=== PATIENT | female | born 1965 | race Two or more races ===

== ENCOUNTER 2023-02-09 09:25 | Outpatient (OUT) | payer MEDICARE, MEDICAID, SELFPAY ==
--- NOTE | 2023-02-09 09:27 | VEIN_ITS ---
Patient: KATIANA CENTENO Exam Date: 02/09/2023 : 1965 Gender:F Ordering : DR JERICHO MAS M.D. Admission #: [id number] Family : Order #: [id number] CLICK HERE TO VIEW EXAM RADIOLOGY REPORT PROCEDURE: VC EXT VENOUS REFLUX YUE LMTD COMPARISON: None. INDICATIONS: I83.813 Painful varicose veins of bilat lower extremities TECHNIQUE: Duplex imaging of the lower extremity to assess the deep and superficial venous system for the presence of deep or superficial venous incompetence and to document the location and severity of disease. The study includes evaluation of the great saphenous vein (GSV), anterior accessory saphenous vein (AASV) and small saphenous vein (SSV). Patient scanned in reverse Trendelenburg and standing. FINDINGS: RIGHT LOWER EXTREMITY: Saphenofemoral Junction Reflux: Yes 8.8mm 2.5 sec GSV: Diam (mm) Reflux/ Time (sec) Proximal Thigh 7.3 Yes 1.9 Mid Thigh 4.2 Yes 0.7 Distal Thigh 7.7 Yes 1.2 Prox Calf 5.8 Yes 2.7 Mid Calf 3.4 Yes 0.5 Saphenopopliteal Junction Reflux: 2.7mm No SSV: Proximal Calf 2.8 No Mid Calf 2.3 No AASV: Proximal Thigh 4.5 No Mid Thigh 3.5 No Distal Thigh Thrombi: No acute or chronic thrombus visualized Compressibility: Normal Flow: Normal Preforator: Dist/med calf 2.9mm with 0s reflux. Tech Note: Incompetent SFJ and GSV. Patent varicose vein mid/med calf 8.5mm with 1.3s reflux. Patent varicose vein prox/med calf 9.1mm with 2.7s reflux. Patent varicose vein dist/med thigh off of GSV 7.2mm with 1.3s reflux. Patent varicose vein 13.5mm with 1.0s reflux. Patent varicose vein lateral knee 7.7mm with 0.9s reflux. LEFT LOWER EXTREMITY: Saphenofemoral Junction Reflux: Yes 9.7 mm 4.4 sec GSV: Diam (mm) Reflux/Time (sec) Proximal Thigh 7.4 Yes 1.6 Mid Thigh 6.1 Yes 1.5 Distal Thigh 3.8 Yes 2.3 Prox Calf 6.1 Yes 1.2 Mid Calf 4.4 Yes 0.6 Saphenopopliteal Junction Relux: 3.7 mm No SSV: Proximal Calf 4.2 Yes 0.8 Mid Calf 4.7 No AASV: Proximal Thigh 11.2 Yes 2.7 Mid Thigh 7.8 Yes 1.7 Distal Thigh Thrombi: No acute or chronic thrombus visualized Compressibility: Normal Flow: Normal Receptionist Secretary: Dist/med calf 2.9mm with 0s reflux. Tech Note: Incompetent SFJ, GSv, and AASV. Patent varicose vein prox/med calf 6.3mm with 0.8s reflux. Patent varicose vein dist/med thigh 4.2mm with 0s reflux. Patent varicose vein prox/ant off AASV. CONCLUSION: 1. Abnormally dilated and incompetent right great saphenous, left great saphenous, and left anterior accessory saphenous veins. 2. Numerous large and incompetent branch saphenous varicosities bilaterally. Dictated by: Graham Sampson M.D. on 02/09/2023 at 11:33 Approved by: Graham Sampson M.D. on 02/09/2023 at 11:42
--- NOTE | 2023-02-09 09:27 | VEIN_ITS ---
Patient: KATIANA CENTENO Exam Date: 02/09/2023 : 1965 Gender:F Ordering : DR JERICHO MAS M.D. Admission #: [id number] Family : Order #: [id number] CLICK HERE TO VIEW EXAM RADIOLOGY REPORT PROCEDURE: VC FACILITY EST COMPREHENSIVE VEIN CENTER - OFFICE VISIT INITIAL COMPARISON: None. PROGRESS NOTES: [age] year old female who presents with a 15 year history of painful, bulging, dilated veins, leg cramping, edema. The patient's right leg symptoms are worse than the left. There has been a progression of symptoms over time. This increases with prolonged standing which patient does for her job. The patient describes an improvement with rest, elevation, and [id number] medication. The patient denies any signs and symptoms to suggest arterial ischemia. The patient describes a family history varicose veins on maternal side. The patient has drinking and smoking history of no alcohol consumption or tobacco use. Patient has a past medical history significant for : None. The patient denies a history of deep venous thrombus or pulmonary embolus. See separate history and physical for medication list. No prior treatment for varicose or spider veins. No current use of compression stockings. After review of nurse notes, history and physical exam I discussed at length the pathophysiology of venous hypertension and possible treatments, therapies and strategies available. We discussed at length the importance of elevating the lower extremities above the level of the heart, increased physical activity and compression stocking use. Ultrasound venous reflux study performed today was discussed at length with the patient. The report demonstrates abnormally dilated and incompetent right great saphenous, left great saphenous, and left anterior accessory saphenous veins. Numerous large and incompetent branch saphenous varicosities bilaterally.. PHYSICAL EXAM: The right leg demonstrates numerous large varicosities, prominent reticular veins and spider veins, no ulceration, moderate edema, no skin discoloration. The left leg demonstrates numerous large varicosities, reticular and spider veins, no ulceration, moderate edema, no skin discoloration. Both thighs, legs and feet were symmetrically warm to the touch. Good posterior tibial and dorsalis pedis pulses were present bilaterally. VEIN/VC Facility EST Comprehensive IMPRESSION: 1. Bilateral lower extremity venous insufficiency 2. Bilateral lower extremity varicose veins 3. Bilateral lower extremity subcutaneous edema 4. No flow significant arterial disease 5. CEAP: C3, EC, , [place] PLAN: 1. Begin use of compression stockings with re-evaluation in 3 months. 2. Elevated legs and increased physical activity symptomatic relief 3. Future consideration should be given to endovenous laser ablation of left great saphenous, right great saphenous, and left anterior accessory saphenous veins. 4. Microfoam chemical ablation of bilateral large in incompetent branch saphenous varicosities. 5. Sclerotherapy of prominent reticular veins and scattered spider veins. Nurse notes, history and physical were reviewed and confirmed, see attached forms. The nurse was present throughout the physical exam and consultation Dictated by: Graham Sampson M.D. on 02/09/2023 at 11:42 Approved by: Graham Sampson M.D. on 02/09/2023 at 11:48
== END 2023-02-09 09:26 | disposition home or self-care (01) ==
LOC: VC 09:25
PROVIDERS: PCP Radiology Diagnostic Radiology; Visit Provider Radiology Diagnostic Radiology
DX: I83.813 Varicose veins of bilateral lower extremities with pain (principal)
CPT/HCPCS: 93970; G0463

== ENCOUNTER 2023-05-16 13:50 | Outpatient (OUT) | payer MEDICARE, SELFPAY ==
--- NOTE | 2023-05-16 13:55 | VEIN_ITS ---
Patient Name: KATIANA CENTENO MR#: [id number] : 1965 Exam Date: 05/16/2023 Ordering Doctor: DR FRANCISCO WHITAKER M.D. RADIOLOGY REPORT PROCEDURE: VC FACILITY EST LMTD VEIN CENTER - OFFICE VISIT FOLLOW UP COMPARISON: None. PROGRESS NOTES: The patient reports mild to moderate improvement in her symptoms after use of bilateral thigh-high 20-30 mm compression stockings. The patient however continues to complain significant discomfort even with the compression stockings with pain, itching and swelling Physical exam demonstrates moderate diffuse bilateral varicose reticular and spider veins along the thighs, lower legs, ankles and feet Intravenous laser ablation, micro foam chemical ablation and injection sclerotherapy were explained at length to the patient. Risks benefits and alternatives were discussed. The patient's questions were answered. VEIN/VC Facility EST LMTD IMPRESSION: 1. Only partial relief with the daily use of bilateral thigh-high 20-30 mm compression stockings as well as exercise. 2. The patient would like to proceed with treatment of her incompetent saphenous and varicose veins PLAN: Endovenous laser ablation and micro foam chemical ablation Nurse notes, history and physical were reviewed and confirmed, see attached forms. The nurse was present throughout the physical exam and consultation Dictated by: Francisco Whitaker MD on 05/16/2023 at 14:44 Approved by: Francisco Whitaker MD on 05/16/2023 at 14:49
== END 2023-05-16 13:51 | disposition home or self-care (01) ==
PROVIDERS: PCP Radiology Diagnostic Radiology; Visit Provider Radiology Diagnostic Radiology
DX: I83.813 Varicose veins of bilateral lower extremities with pain (principal)
CPT/HCPCS: G0463

== ENCOUNTER 2023-06-05 13:17 | Outpatient (OUT) | payer MEDICARE, MEDICAID, SELFPAY ==
--- NOTE | 2023-06-05 13:18 | VEIN_ITS ---
[address] [address] Patient Name: KATIANA MARISCAL MRN: [id number] date: 1965 Sex: F Assigned Patient Location: Current Patient Location: Accession/Order Number: [id number] Exam Date: 06/05/2023 13:19 Report Date: 06/05/2023 15:22 At the request of: JERICHO MAS Procedure: VC Endovenous Ablation 1VeinLT EXAMINATION: VC Endovenous Ablation 1Vein, left great saphenous vein HISTORY: Painful varicose veins bilaterally COMPARISON: No relevant comparison available. TECHNIQUE: The risks and benefits of the procedure had been previously discussed, and were rediscussed at length. Informed written consent was obtained. Mynor Stevenson assisted. Time out procedure was performed. The left lower extremity was prepared and draped in the usual sterile fashion to allow knee flexion in the sterile field. Duplex ultrasound probe was draped in a sterile cover, sterile transmission gel was used. Venous mapping was performed with the areas of dilation and large tributaries marked. The total length was 37 cm from the entry upper calf to 3 cm below the saphenofemoral junction. The diameter of the greater saphenous vein ranged from 5-8 mm. A 30 gauge needle and 1% buffered lidocaine was used to anesthetize the entry site. A 4 mm incision was made with a scalpel and the saphenous vein was entered percutaneously under direct ultrasound guidance with a micropuncture set, a single stick was successful in gaining access. A micro-guide wire was inserted and the needle removed. A micro-set including a dilator was inserted over the microwire and the needle and dilator were removed. A 0.018 guide wire was inserted through the micro-set and threaded through the saphenous vein to the saphenofemoral junction. The dilator was removed and an introducer sheath was inserted over the wire until the end of the sheath entered the saphenofemoral junction. The dilator and wire were removed and the 600 micron fiber was introduced and placed and positioned so that it extended beyond the sheath and was 3 cm peripheral to the saphenofemoral femoral junction. Final position of the fiber was determined by ultrasound guidance and duplex imaging. Tumescent anesthetic was delivered by ultrasound guidance. 300 cc of fluid was delivered along the entire course of the saphenous vein. The solution consisted of 1000 cc of normal saline with 40 mL of 1% lidocaine and 20 mL of sodium bicarbonate. A final positioning check was made. The energy source was turned on by means of the foot pedal and the fiber and sheath were withdrawn. The total number of Joules delivered was 1908. The laser was active for 239 seconds under continuous pulse, average laser use of 8 J. Laser start time 2:19 pm, 06/05/23 . Laser stop time 2:24 pm 06/05/23 . A duplex ultrasound revealed compressibility and flow at the saphenofemoral junction immediately after the procedure. Hemostasis at the access site was achieved. The skin incision of the saphenous vein was closed with a 4 x 4. A compression stocking was applied. Postop instructions were given. A follow up appointment was recommended and scheduled. The patient tolerated the procedure well and was discharged in good condition . VEIN/VC Endovenous Ablation 1VeinLT IMPRESSION: Technically successful endovenous laser ablation of the left great saphenous vein Electronically authenticated by: JERICHO MAS Date: 06/05/2023 15:22
--- OUTSIDE RECORDS SUMMARY | 2023-06-05 13:21 | XMS_ITS | CCD ---
Author Name Unknown Address [address] [place] [address] Organization [facility] Care Team Providers Care Research And Development Researcher Name Role Phone JERICHO QURESHI JR Attending Unavailable JERICHO QURESHI JR Consulting Unavailable JERICHO QURESHI JR Admitting Unavailable [facility] Primary Care Unava CHELSEA Vazquez Consulting Unavailable Jericho Qureshi Unavailable Nicholas Arteaga Unavailable MD Stephen Wilkins Attending Provider DO Lalita Drake Primary Care Provider Stephen Wilkins Admitting UnavailStephen Velez Attending Unavaillatosha e Lalita Drake Primary Care Unavailable Medications Current Medications Medication Drug Class(es) Dates Sig (Normalized) Sig (Original) Acetaminophen (1 source) Tylenol PRN Active dicyclomine hydrochloride 20 mg oral tablet (1 source) Anticholinergic Start: 07-20-2021 take 1 tablet by mouth every eight hours Dicyclomine HCl 20 MG 1 tablet Orally Three times a day for 30 day(s) Jul, Active Docusate (1 source) Colace Active meloxicam (1 source) Nonsteroidal Anti-inflammatory Drug Meloxicam Active omeprazole 40 mg delayed release oral capsule (2 sources) Proton Pump Inhibitor Start: 01-17-2023 take 1 capsule by mouth once daily Omeprazole 40 MG 1 capsule 30 minutes before morning meal Orally Once a day for 30 days Jan, Active take 1 capsule by mo [facility] every twenty-four hours Omeprazole 20 MG 1 capsule Orally Once a day Active Problems Active Problems Problem Classification Problem Date Documented Da te Episodic/Chronic Abdominal pain (3 sources) Abdominal pain; Translations: [Unspecified abdominal pain] Onset: 07-20-2021 Resolved: 07-20-2021 Episodic Diverticulosis and diverticulitis (1 source) Diverticulosis of large intestine without perforation or abscess without bleeding; Translations: [DVRTCLOS LG INT NO PERF/ABSC W/O BL] Onset: 06-04-2020 Chronic Esophageal disorders (6 sources) Dyskinesia of esophagus; Translations: [Gastro-esophageal reflux disease without esophagitis] Onset: 06-04-2020 Resolved: 07-20-2021 Chronic Mood disorders (1 source) Major depressive disorder, single episode, unspecified; Translations: [EDITA DEPRESS D/O SINGLE EPIS UNS] Onset: 06-04-2020 Chronic Nonspecific chest pain (2 sources) Chest pain; Translations: [Other chest pain] Episodic Other gastrointestinal disorders (5 sources) Dysphagia, unspecified; Translations: [DYSPHAGIA UNSPECIFIED] Onset: 06-03-2020 Episodic Other gastrointestinal disorders (2 sources) Constipation; Translations: [Constipation, unspecified] Episodic Past or Other Problems Problem Classification Problem Date Documented Da te Episodic/Chronic Gastrointestinal hemorrhage (1 source) Melena Onset: 07-20-2021 Resolved: 07-20-2021 Episodic Other aftercare (1 source) Other schedule 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 (current) drug therapy; Translations: [OTH GROUP HOME CURRENT DRUG THERAPY] Onset: 06-04-2020 Episodic Other screening for suspected conditions (not mental disorders or infectious disease) (1 source) Encounter for screening for malignant neoplasm of colon; Translations: [ENC SCREEN MALIG NEOPLASM COLON] Onset: 06-04-2020 Episodic Residual codes; unclassified (1 source) Family history of malignant neoplasm of digestive organs; Translations: [FAM HX MALIG NEOPLASM DIGESTIV ORGN] Onset: 06-04-2020 Episodic Vital Signs Date Time Vital Sign Value Performing Clinician Faci lity 02-21-2023 06:46-0400 Body height 156.21 cm DO Lalita Rumschlag Work Phone: [facility] 02-21-2023 06:46-0400 Body weight 74.84 kg DO Lalita Rumschlag Work Phone: [facility] 01-17-2023 11:00-0400 Body height 154.94 cm Nicholas Arteaga Other [employer] Other 01-17-2023 11:00-0400 Body mass index (BMI) [Ratio] 49.5 kg/m2 Nicholas Jasmyneclover Other [employer] Other 01-17-2023 11:00-0400 Body weight 118.84 kg Nicholas Arteaga Other [employer] Other 01-17-2023 11:00-0400 Diastolic blood pressure 81 mm[Hg] Nicholas Ditty Other [employer] Other 01-17-2023 11:00-0400 Systolic blood pressure 155 mm[Hg] Nicholas Jasmyneclover Other [employer] Other 07-20-2021 14:45-0500 Body weight 114.76 kg Jericho Qureshi Other [employer] Other Encounters Encounter Date Encounter Type Care Provider Facility Start: 02-21-2023 End: 02-21-2023 ambulatory Stephen Wilkins Facility:[facility] Start: 02-21-2023 End: 02-21-2023 ambulatory DO Lalita Rumschlag Work Phone: [facility] Work Phone: Start: 02-21-2023 End: 02-21-2023 Patient encounter procedure DO Lalita Rumschlag Work Phone: [facility] Work Phone: Start: 01-17-2023 End: 01-17-2023 ambulatory Nicholas Arteaga Other [employer] Other Start: 01-17-2023 [facility] visit new patient Nicholas Arteaga [facility] Start: 07-20-2021 End: 07-20-2021 ambulatory Jericho Qureshi Other [employer] Other Start: 07-20-2021 Office outpatient visit 25 minutes Jericho [facility] Start: 06-03-2020 End: 06-03-2020 ambulatory JERICHO QURESHI JR Facility:[facility] Procedures Date Procedure Procedure Detail Performing Clinician Start: 02-21-2023 Esophageal manometry DO Lalita Drake Work Phone: Plan of Treatment Date Care Activity Detail Author Start: 02-21-2023 [facility] Payers Date Payer Category Payer Medicare [id number] 2.1 [id number] 2023 Self-pay 1965 Unknown [id number] 1961 Unknown [id number] Medicaid [id number] 2. [id number] Unknown [id number] Social History Date Type Detail Facility Sex Assigned At [facility] [employer] Other Start: 1965 Sex Assigned At Female F [facility] Goals Date Patient Goal Desired Activity /State Evaluation note 01-17-2023 Note Date & Type Note Facility 01-17-2023 Evaluation note Encounter Date Diagnosis Assessment Notes Jan, GERD (gastroeso phageal reflux disease) (ICD-10 - K21.9) Patient denies any issues with Dysphagia at this time. [place] UGI with Esophagus did show some achalasia. Will start patient on Omeprazole 40mg once daily. Would like to proceed with an EMS to evaluate how hard the muscles are squeezing. Jan, Chest pain, non-cardia c (ICD-10 - R07.89) Patient describes a poking pain in her chest. [employer] Other Evaluation note 07-20-2021 Note Date & Type Note Facility 07-20-2021 Evaluation note Encounter Date Diagnosis Assessment Notes 08 Mar, 2022 GERD (gastroesopha geal reflux disease) (ICD-10 - K21.9) Jul, Abdominal pain (ICD-10 - R10.9) severe sharp pain imaging ordered and medication started Jul, Black stools (ICD-10 - K92.1) [employer] Other Clinical Note 06-03-2020 Note Date & Type Note Facility 06-03-2020 Note OPERATIVE NOTE OPERATION DATE: 06-03-20 ANESTHETIC: MAC, Propofol as per the anesthesia department. PREOPERATIVE DIAGNOSIS: 1. Dysphagia. 2. Screening with family history of colon cancer in the patient's brother. POSTOPERATIVE DIAGNOSIS: 1. Mild esophageal spasm, dilated to 20 mm with balloon. 2. Moderate sigmoid diverticulosis. PROCEDURE NAME: 1. EGD with balloon dilatation. 2. Colonoscopy to the terminal ileum. INDICATION: O2 oximetry. Hemodynamic monitoring performed pre, during and post procedures. The patient was identified, H AND P completed. The patient was given full explanation of the procedures as well as associated risks and written consent was obtained prior to the procedures. The patient expressed complete understanding of the procedures as well as alternatives to the procedures and anesthesia and agrees to proceed with the procedures as indicated. The patient was immediately reassessed prior to IV sedation. PROCEDURE: Following IV sedation, the patient was placed in the left lateral decubitus position. A bite block was inserted. The endoscope was passed through the mouth and down to the esophagus. The scope was passed into the stomach and down through the antrum to the pyloric channel, into the duodenal bulb and the second portion of the duodenum. There was no evidence of duodenitis. The scope was withdrawn back into the stomach, there was no evidence of gastritis. Retroflexion was performed which demonstrated no significant hiatal hernia. The scope was withdrawn into the esophagus, there was noted to be mild esophageal spasms, a 20 mm balloon catheter was placed and inflated to 20 mm and the distal, mid, and proximal esophagus were dilated. The scope was removed. Subsequently the bed was switched around, the scope was changed. A digital rectal exam was performed which did not demonstrate any masses. The videocolonoscope was subsequently inserted and passed proximally. Upon advancement, there was moderate sigmoid diverticulosis without evidence of diverticulitis. The colonoscope was advanced over to the right side, the ileocecal valve, cecal floor and appendiceal orifice were identified. The terminal ileum was cannulated and appeared normal. The colonoscope was slowly withdrawn through the ascending colon, hepatic flexure, transverse colon, splenic flexure, descending colon and into the sigmoid colon. There were no polyps identified. There were no areas of colitis. The colonoscope was retroflexed in the rectum, there was no significant hemorrhoids, the colonoscope was then straightened and removed. Following a period of recovery, the patient was seen, given full explanation of the procedures. The patient tolerated the procedures well and may be discharged when in satisfactory, stable and ambulatory condition. RECOMMENDATIONS: 1. Advance diet and observe. 2. Colonoscopy recommended in 5 years based on family history. [facility] Signed and Approved by: JERICHO QURESHI JR 06/10/2020 11:26:00 [facility] Evaluation note Note Date & Type Note Facility Evaluation note No assessment information availa [facility] Work Phone: History general Narrative - Reported Note Date & Type Note Facility History general Narrative - Reported Type Medical History GERD Medical History esophageal spasm Surgical History appendectomy Surgical History C section [employer] Other History general Narrative - Reported Note Date & Type Note Facility History general Narrative - Reported Type Medical History GERD Medical History esophageal spasm Surgical History appendectomy Surgical History C section Surgical History ablasion-righ and left knee Hospitalization History see above [employer] Other Summary Purpose Family History No Family History Records FoundNo Family History Records Found Advance Directives No Advanced Directives Records Found Advance Directive Response Recorded Date/ Time Advance Directives No February 20, 2023 4:45pm Chief Complaint and Reason for Visit Chief Complaint gerd, non-cardiac ch est pain Additional Source Comments INFORMATION SOURCE (unrecogn ized section and content) DATE CREATED AUTHOR 09/11/2020 [facility] DATE CREATED AUTHOR AUTHOR'S ORGANIZ ATION 03/19/2023 [facility] REASON FOR VISIT (unrecogniz ed section and content) PATIENT HERE AT THE REQUEST OF DR SOUZA FOR GERDPT IS HERE FOR BEGINNINGS OF BILL//PREVIOUS KIERA PATIENT Care Teams (unrecognized sec tion and content) Team Status: Active Member Role Status Dates Lalita Drake DO Primary Care Provider Active Team Status: Inactive Member Role Status Dates Stephen Wilkins MD Attending Provider Active Lalita Drake DO Primary Care Provider Active FOR RECORDS PERTAINING TO PATIENTS WHO ARE OR HAVE BEEN ENROLLED IN A CHEMICAL DEPENDENCY/SUBSTANCEABUSE PROGRAM, SOME INFORMATION MAY BE OMITTED. This clinical summary was aggregated from multiple sources. Caution should be exercised in using it in the provision of clinical care. This summary normalizes information from multiple sources, and as a consequence, information in this document may materially change the coding, format and clinical context of patient data. In addition, data may be omitted in some cases. CLINICAL DECISIONS SHOULD BE BASED ON THE PRIMARY CLINICAL RECORDS. [facility]. provides no warranty or guarantee of the accuracy or completeness of information in this document.
[2023-06-05] MEDS: LIDOCAINE HCL 1% 100 MG/10 ML MDV INJ (15:09)
[2023-06-05] MEDS: 0.9 % SODIUM CHLORIDE 500 ML, LIDOCAINE HCL 20 ML, SODIUM BICARBONATE 10 MEQ INJ (15:10)
== END 2023-06-05 13:18 | disposition home or self-care (01) ==
LOC: VC 13:17
PROVIDERS: PCP Radiology Diagnostic Radiology; Visit Provider Radiology Diagnostic Radiology
DX: I83.813 Varicose veins of bilateral lower extremities with pain (principal)
CPT/HCPCS: 36478

== ENCOUNTER 2023-06-12 12:23 | Outpatient (OUT) | payer MEDICARE, MEDICAID, SELFPAY ==
--- NOTE | 2023-06-12 12:25 | VEIN_ITS ---
Patient Name: KATIANA MARISCAL MR#: [id number] : 1965 Exam Date: 06/12/2023 Ordering Doctor: DR FRANCISCO WHITAKER M.D. RADIOLOGY REPORT PROCEDURE: VC EXT VENOUS LT LIMITED COMPARISON: None. INDICATIONS: Phlebitis of superficial vein of left lower extremity I80.02 TECHNIQUE: Lower extremity marcum scale and Duplex Doppler evaluation of the deep venous system from the inguinal ligament through the calf veins. FINDINGS: REGION: Left lower extremity. THROMBI: Negative for DVT. Heat induced thrombus in left GSV 2.2 cm from SFJ and extends to medial knee. COMPRESSIBILITY: Non-compressible segments corresponding to thrombus FLOW: Areas of no flow corresponding to thrombus CONCLUSION: Post ablation occlusion of the left great saphenous vein with heat induced thrombus 2.2 cm from the saphenofemoral junction Dictated by: Francisco Whitaker MD on 06/12/2023 at 12:51 Approved by: Francisco Whitaker MD on 06/12/2023 at 12:53
--- NOTE | 2023-06-12 12:25 | VEIN_ITS ---
Patient Name: KATIANA MARISCAL MR#: [id number] : 1965 Exam Date: 06/12/2023 Ordering Doctor: DR FRANCISCO WHITAKER M.D. RADIOLOGY REPORT PROCEDURE: [facility] - OFFICE VISIT FOLLOW UP [facility] PROGRESS NOTES: The patient reports no significant problems following intravenous laser ablation of left great saphenous vein. The patient does complain of some bruising. The patient has worn her compression stockings as directed. The patient has done some exercise. The patient did not require analgesics Physical exam demonstrates 3 areas of bruising in the medial left thigh the largest measuring 10 cm in diameter. This likely is related to tumescence injection. The left great saphenous vein cannot be palpated likely related to patient body habitus. No erythema or warmth to suggest cellulitis or thrombophlebitis. No active ulceration Review of the ultrasound performed the same day demonstrates occlusive thrombus extending throughout the treated left great saphenous vein with heat induced thrombus 2.2 cm from the saphenofemoral junction. No deep vein thrombus. The patient expressed a desire to proceed with treatment of incompetent right great saphenous vein with intravenous laser ablation. VEIN/[facility] EST TD IMPRESSION: 1. Successful ablation of the left great saphenous vein 2. Persistent incompetent right great saphenous vein. PLAN: Intravenous laser ablation right great saphenous vein Nurse notes, history and physical were reviewed and confirmed, see attached forms. The nurse was present throughout the physical exam and consultation Dictated by: Francisco Whitaker MD on 06/12/2023 at 12:57 Approved by: Francisco Whitaker MD on 06/12/2023 at 12:59
== END 2023-06-12 12:24 | disposition home or self-care (01) ==
LOC: VC 12:24
PROVIDERS: PCP Radiology Diagnostic Radiology; Visit Provider Radiology Diagnostic Radiology
DX: I80.02 Phlebitis and thrombophlebitis of superficial vessels of left lower extremity (principal)
CPT/HCPCS: 93971; G0463

== ENCOUNTER 2023-06-26 13:03 | Outpatient (OUT) | payer MEDICARE, SELFPAY ==
--- NOTE | 2023-06-26 13:06 | VEIN_ITS ---
[address] [address] Patient Name: KATIANA MARISCAL MRN: [id number] date: 1965 Sex: F Assigned Patient Location: Current Patient Location: Accession/Order Number: [id number] Exam Date: 06/26/2023 13:42 Report Date: 06/26/2023 14:16 At the request of: JERICHO MAS Procedure: VC Endovenous Ablation 1VeinRT EXAMINATION: VC Endovenous Ablation 1Vein right great saphenous vein HISTORY: Pain due to varicose veins of bilateral legs I83.813 COMPARISON: No relevant comparison available. TECHNIQUE: The risks and benefits of the procedure had been previously discussed, and were rediscussed at length. Informed written consent was obtained. Evelin Obrien and Mello Ko assisted. Time out procedure was performed. The right lower extremity was prepared and draped in the usual sterile fashion to allow knee flexion in the sterile field. Duplex ultrasound probe was draped in a sterile cover, sterile transmission gel was used. Venous mapping was performed with the areas of dilation and large tributaries marked. The total length was 30 cm from the entry lower knee to 3 cm below the saphenofemoral junction. The diameter of the greater saphenous vein ranged from 8-12 mm. A 30 gauge needle and 1% buffered lidocaine was used to anesthetize the entry site. A 4 mm incision was made with a scalpel and the saphenous vein was entered percutaneously under direct ultrasound guidance with a micropuncture set, a single stick was successful in gaining access. A micro-guide wire was inserted and the needle removed. A micro-set including a dilator was inserted over the microwire and the needle and dilator were removed. A 0.018 guide wire was inserted through the micro-set and threaded through the saphenous vein to the saphenofemoral junction. The dilator was removed and an introducer sheath was inserted over the wire until the end of the sheath entered the saphenofemoral junction. The dilator and wire were removed and the 600 micron fiber was introduced and placed and positioned so that it extended beyond the sheath and was 3 cm peripheral to the saphenofemoral femoral junction. Final position of the fiber was determined by ultrasound guidance and duplex imaging. Tumescent anesthetic was delivered by ultrasound guidance. 275 cc of fluid was delivered along the entire course of the saphenous vein. The solution consisted of 1000 cc of normal saline with 40 mL of 1% lidocaine and 20 mL of sodium bicarbonate. A final positioning check was made. The energy source was turned on by means of the foot pedal and the fiber and sheath were withdrawn. The total number of Joules delivered was 1423. The laser was active for 178 seconds under continuous pulse, average laser use of 8 J. Laser start time 14:07 06/26/23 . Laser stop time 2:11 06/26/23 . A duplex ultrasound revealed compressibility and flow at the saphenofemoral junction immediately after the procedure. Hemostasis at the access site was achieved. The skin incision of the saphenous vein was closed with a 4 x 4. A compression stocking was applied. Postop instructions were given. A follow up appointment was recommended and scheduled. The patient tolerated the procedure well and was discharged in good condition . VEIN/VC Endovenous Ablation 1VeinRT IMPRESSION: Technically successful endovenous laser ablation of the right great saphenous vein Electronically authenticated by: JERICHO MAS Date: 06/26/2023 14:16
[2023-06-26] MEDS: LIDOCAINE HCL 1% 100 MG/10 ML MDV INJ (13:09)
[2023-06-26] MEDS: 0.9 % SODIUM CHLORIDE 500 ML, LIDOCAINE HCL 20 ML, SODIUM BICARBONATE 10 MEQ INJ (13:10)
== END 2023-06-26 13:04 | disposition home or self-care (01) ==
LOC: VC 13:03
PROVIDERS: PCP Radiology Diagnostic Radiology; Visit Provider Radiology Diagnostic Radiology
DX: I83.813 Varicose veins of bilateral lower extremities with pain (principal)
CPT/HCPCS: 36478

== ENCOUNTER 2023-07-03 13:27 | Outpatient (OUT) | payer MEDICARE, SELFPAY ==
--- NOTE | 2023-07-03 13:29 | VEIN_ITS ---
Patient Name: KATIANA MARISCAL MR#: [id number] : 1965 Exam Date: 07/03/2023 Ordering Doctor: DR JERICHO MAS M.D. RADIOLOGY REPORT PROCEDURE: [facility] - OFFICE VISIT FOLLOW UP [facility] PROGRESS NOTES: The patient reports improvement in leg symptoms. There has been interval reduction in varicosities. The patient has followed our recommendations to walk 20-30 minutes once or twice per day since the procedure. Physical exam demonstrates decrease in varicosities of the leg. Persistent varicosities are identified along the legs bilaterally. Review of the ultrasound performed the same day demonstrates occlusive thrombus extending throughout the treated vein(s), see separate report, consistent with a successful ablation. No thrombus extending into or beyond the saphenofemoral junction. The patient expressed a desire to proceed with treatment of remaining incompetent varicosities. The patient was informed that treatment was a process and would require several procedures/sessions. VEIN/[facility] EST TD IMPRESSION: 1. Successful ablation of the right great saphenous vein(s). 2. Persistent dilated varicose veins and bilateral lower extremity symptoms. PLAN: Endovenous laser ablation of left anterior accessory saphenous vein. Nurse notes, history and physical were reviewed and confirmed, see attached forms. The nurse was present throughout the physical exam and consultation Dictated by: Graham Sampson M.D. on 07/03/2023 at 14:57 Approved by: Graham Sampson M.D. on 07/03/2023 at 14:59
--- NOTE | 2023-07-03 13:29 | VEIN_ITS ---
Patient Name: KATIANA MARISCAL MR#: [id number] : 1965 Exam Date: 07/03/2023 Ordering Doctor: DR JERICHO MAS M.D. RADIOLOGY REPORT PROCEDURE: VC EXT VENOUS RT LMTD COMPARISON: None. INDICATIONS: Phlebitis of superficial veins of right lower extremity I80.01 TECHNIQUE: Lower extremity marcum scale and Duplex Doppler evaluation of the deep venous system from the inguinal ligament through the calf veins. FINDINGS: REGION: Right lower extremity. THROMBI: Negative for DVT. Heat induced thrombus in right GSV 1.3 cm from SFJ and extends to medial knee. COMPRESSIBILITY: Non-compressible segments corresponding to thrombus FLOW: Areas of no flow corresponding to thrombus OTHER: CONCLUSION: 1. Successful post ablation occlusion of right great saphenous vein. Dictated by: Graham Sampson M.D. on 07/03/2023 at 14:53 Approved by: Graham Sampson M.D. on 07/03/2023 at 14:57
--- OUTSIDE RECORDS SUMMARY | 2023-07-03 13:47 | XMS_ITS | CCD ---
Author Name Unknown Address [address] [place] [address] Organization [facility] Care Team Providers Care Integration Technician Name Role Phone JERICHO QURESHI JR Attending Unavailable JERICHO QURESHI JR Consulting Unavailable JERICHO QURESHI JR Admitting Unavailable [facility] Primary Care Unava ilCHELSEA Monroe Consulting Unavailable Jericho Qureshi Unavailable Nicholas Arteaga Unavailable MD Stephen Wilkins Attending Provider DO Lalita Westbrook Primary Care Provider Stephen Wilkins Admitting UnavailStephen Velez Attending Unavailabl e Dariana Lalita Primary Care Unavailable Rumschbrian DARLING Lalita Salvatore Primary Care Provider DARIANA LALITA K Primary Care Unavailable TRINA DANIEL Attending Unavailable TRINA DANIEL Attending Unavailable TRINA DANIEL Referring Unavailable RUMSCHLAG, LALITA K Primary Care Unavailable RUMSCHLAG, LALITA K Referring Unavailable RUMSCHLAG, LALITA K Primary Care Unavailable RUMSCHLAG, LALITA K Referring Unavailable RUMSCHLAG, LALITA K Primary Care Unavailable Medications Current Medications Medication Drug Class(es) Dates Sig (Normalized) Sig (Original) acetaminophen 500 mg oral tablet (2 sources) take 1 tablet by mouth every six hours as needed for pain acetaminophen (TYLENOL) 500 mg tablet Take 1 tablet (500 mg total) by mouth every 6 (six) hours as needed for pain. 0 Active Tylenol PRN Acti ve 60 actuat budesonide 0.16 mg/actuat / formoterol fumarate 0.0045 mg/actuat metered dose inhaler (2 sources) Corticosteroid, beta2-Adrenergic Agonist Start: 09-20-2022 take 2 puff(s) by inhalation in the morning SYMBICORT 160-4.5 mcg/actuation inhaler Indications: Chronic dyspnea , SOB (shortness of breath) Inhale 2 puffs in the morning and 2 puffs before bedtime. 10.2 g 11 09/20/2022 Active Start: 09-05-2022 take 2 puff(s) by in halation in the morning budesonide-formoteroL (SYMBICORT) 160-4.5 mcg/actuation inhaler Indications: Chronic dyspnea , Atypical chest pain Inhale 2 puffs in the morning and 2 puffs before bedtime. 10.2 g 11 09/05/2022 Active celecoxib 100 mg oral capsule (1 source) Nonsteroidal Anti-inflammatory Drug Start: 06-06-2023 take 1 capsule by mouth in the morning, then take 1 capsule by mouth at bedtime celecoxib (CeleBREX) 100 mg capsule Take 1 capsule (100 mg total) by mouth in the morning and 1 capsule (100 mg total) before bedtime. 180 capsule 0 06/06/2023 Active diclofenac sodium 0.01 mg/mg topical gel (1 source) Nonsteroidal Anti-inflammatory Drug diclofenac sodium (VOLTAREN) 1 % gel Apply 2 g topically 4 (four) times a day as needed. 0 Active dicyclomine hydrochloride 20 mg oral tablet (1 source) Anticholinergic Start: 07-20-2021 take 1 tablet by mouth every eight hours Dicyclomine HCl 20 MG 1 tablet Orally Three times a day for 30 day(s) Jul, Active Docusate (1 source) Colace Active lisinopril 5 mg oral tablet (1 source) Angiotensin Converting Enzyme Inhibitor Start: 03-15-2023 take 0.5 tablet by mouth in the morning lisinopriL (PRINIVIL,ZESTRI L) 5 mg tablet Take 0.5 tablets (2.5 mg total) by mouth in the morning. 0 03/15/2023 Active omeprazole 40 mg delayed release oral capsule (3 sources) Proton Pump Inhibitor Start: 03-08-2023 take 1 capsule by mouth once daily before breakfast omeprazole (PriLOSEC) 40 mg capsule Take 1 capsule (40 mg total) by mouth every morning before breakfast. 0 03/08/2023 Active Start: 01-17-2023 take 1 capsule by [facility] once daily Omeprazole 40 MG 1 capsule 30 minutes before morning meal Orally Once a day for 30 days Jan, Active take 1 capsule by [facility] every twenty-four hours Omeprazole 20 MG 1 capsule Orally Once a day Active Completed/Discontinued Medications Medication Drug Class(es) Dates Sig (Normalized) Sig (Original) meloxicam 7.5 mg oral tablet (2 sources) Nonsteroidal Anti-inflammatory Drug Start: 03-22-2023 End: 06-06-2023 take 1 tablet by mouth in the morning meloxicam (MOBIC) 7.5 mg tablet Indications: Primary osteoarthritis of both knees Take 1 tablet (7.5 mg total) by mouth in the morning. 30 tablet 1 03/22/2023 06/06/2023 Discontinued (Side effects) Meloxicam Active Problems Active Problems Problem Classification Problem Date Documented Da te Episodic/Chronic Abdominal pain (3 sources) Abdominal pain; Translations: [Unspecified abdominal pain] Onset: 07-20-2021 Resolved: 07-20-2021 Episodic Acute bronchitis (1 source) Acute bronchitis, unspecified; Translations: [Acute bronchitis, unspecified] Onset: 06-19-2023 Episodic Diabetes mellitus without complication (1 source) Type 2 diabetes mellitus without complications; Translations: [Type 2 diabetes mellitus without complications] Onset: 06-23-2023 Chronic Diverticulosis and diverticulitis (1 source) Diverticulosis of [...] UNS] Onset: 06-04-2020 Chronic Nonspecific chest pain (3 sources) Chest pain; Translations: [Other chest pain] Episodic Osteoarthritis (3 sources) Primary gonarthrosis, bilateral; Translations: [Bilateral primary osteoarthritis of knee] Onset: 01-12-2022 04-27-2022 Chronic Other connective tissue disease (1 source) Pain in right arm; Translations: [Pain in right arm] Onset: 06-19-2023 Episodic Other connective tissue disease (1 source) Pain in left arm; Translations: [Pain in left arm] Onset: 06-19-2023 Episodic Other gastrointestinal disorders (5 sources) Dysphagia, unspecified; Translations: [DYSPHAGIA UNSPECIFIED] Onset: 06-03-2020 Episodic Other gastrointestinal disorders (2 sources) Constipation; Translations: [Constipation, unspecified] Episodic Other lower respiratory disease (1 source) Interstitial lung disease; Translations: [Interstitial pulmonary disease, unspecified] Onset: 07-14-2022 07-14-2022 Chronic Other lower respiratory disease (1 source) Dyspnea; Translations: [Shortness of breath] 10-06-2020 Episodic Other nutritional; endocrine; and metabolic disorders (1 source) Severe obesity; Translations: [Morbid (severe) obesity due to excess calories] Onset: 10-06-2020 07-14-2022 Chronic Other nutritional; endocrine; and metabolic disorders (1 source) Body mass index 40+ - severely obese; Translations: [Morbid (severe) obesity due to excess calories] Onset: 11-12-2020 12-03-2020 Chronic Other skin disorders (1 source) Skin problem Onset: 06-19-2023 Episodic Residual codes; unclassified (1 source) Obstructive sleep apnea syndrome; Translations: [Obstructive sleep apnea (adult) (pediatric)] Onset: 07-14-2022 07-14-2022 Chronic Unclassified (1 source) Arm Pain, Cough Onset: 06-19-2023 Past or Other Problems Problem Classification Problem Date Documented Da te Episodic/Chronic Gastrointestinal hemorrhage (1 source) Melena Onset: 07-20-2021 Resolved: 07-20-2021 Episodic Other aftercare (1 source) 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; Translations: [OTH PHILOSOPHY LECTURER CURRENT DRUG THERAPY] Onset: 06-04-2020 Episodic Other screening for suspected conditions (not mental disorders or infectious disease) (2 sources) Encounter for screening for malignant neoplasm of colon; Translations: [Cardiovascular stress test abnormal] Onset: 06-04-2020 11-12-2020 Episodic Residual codes; unclassified (1 source) Family history of malignant neoplasm of digestive organs; Translations: [FAM HX MALIG NEOPLASM DIGESTIV ORGN] Onset: 06-04-2020 Episodic Results Test Name Value Interpretation Reference Range Facil ity COMPREHENSIVE METABOLIC PANE Jose 06-24-2023 Albumin [Mass/Vol] 4.0 g/dL Normal 3.2-5.3 [facility] Comment on above: Performed By: #### C MP #### [facility] ([id number]) [address] [place] [address] ALP [Catalytic activity/Vol] 92 U/L Normal 39-130 [facility] Comment on above: Performed By: #### C MP #### [facility] ([id number]) [address], [address] [place] [address] ALT [Catalytic activity/Vol] 23 U/L Normal 0-31 [facility] Comment on above: Performed By: #### C MP #### [facility] ([id number]) [address], [address] [place] [address] Anion gap [Moles/Vol] 9 mmol/L Normal 5-15 [facility] Comment on above: Performed By: #### C MP #### [facility] ([id number]) [address], [address] [place] [address] AST [Catalytic activity/Vol] 24 U/L Normal 0-41 [facility] Comment on above: Performed By: #### C MP #### [facility] ([id number]) [address] [place] [address] Bilirubin [Mass/Vol] 1.0 mg/dL Normal 0.3-1.2 [facility] Comment on above: Performed By: #### C MP #### [facility] ([id number]) [address] [place] [address] Calcium [Mass/Vol] 9.0 mg/dL Normal 8.5-10.5 [facility] Comment on above: Performed By: #### C MP #### [facility] ([id number]) [address] [place] [address] Chloride [Moles/Vol] 103 mmol/L Normal 98-109 [facility] Comment on above: Performed By: #### C MP #### [facility] ([id number]) [address] [place] [address] CO2 [Moles/Vol] 27 mmol/L Normal 22-32 [facility] Comment on above: Performed By: #### C MP #### [facility] ([id number]) [address] [place] [address] Creatinine [Mass/Vol] 0.53 mg/dL Normal 0.40-1.00 [facility] Comment on above: Result Comment: METH OD TRACEABLE TO IDMS STANDARD Performed By: #### C MP #### [facility] ([id number]) [address] [place] [address] eGFR (CKD-EPI) NON-RACE DEPENDENT >90 Normal >59 [facility] Comment on above: Result Comment: Reported eGFR is based on the CKD-EPI 2020 equation that does not use a race coefficient. Performed By: #### C MP #### [facility] ([id number]) [address] [place] [address] Glucose [Mass/Vol] 170 mg/dL High 65-99 [facility] Comment on above: Performed By: #### C MP #### [facility] ([id number]) [address] [place] [address] Potassium [Moles/Vol] 4.2 mmol/L Normal 3.5-5.0 [facility] Comment on above: Performed By: #### C MP #### [facility] ([id number]) [address] [place] [address] Protein [Mass/Vol] 7.2 g/dL Normal 6.0-8.0 [facility] Comment on above: Performed By: #### C MP #### [facility] ([id number]) [address] [place] [address] Sodium [Moles/Vol] 139 mmol/L Normal 134-146 [facility] Comment on above: Performed By: #### C MP #### [facility] ([id number]) [address] [place] [address] Urea nitrogen [Mass/Vol] 15 mg/dL Normal 5-23 [facility] Comment on above: Performed By: #### C MP #### [facility] ([id number]) [address] [place] [address] HGB A1C (GLYCO-HGB)on 2023 Glucose [Mass/Vol] 186 mg/dL Normal [facility] Comment on above: Performed By: #### C MP #### [facility] ([id number]) [address] [place] [address] HbA1c (Bld) [Mass fraction] 8.1 % High 4.4-5.6 [facility] Comment on above: Result Comment: NOTE ADA Guidelines Result HgbA1c Normal : less than 5.7 % Prediabetes : 5.7 % to 6.4 % Diabetes : > 6.4 % Use with caution in patients with abnormal hemoglobin variants as the half-life of red blood cells and in vivo glycation rates are affected. Performed By: #### C MP #### [facility] ([id number]) [address] [place] [address] Vital Signs Date Time Vital Sign Value Performing Clinician Jacque alcala 02-21-2023 06:46-0400 Body height 156.21 cm DO [employer] Work Phone: [facility] 02-21-2023 06:46-0400 Body weight 74.84 kg DO Lalita Westbrook Work Phone: [facility] 01-17-2023 11:00-0400 Body height 154.94 cm Nicholas Jasmyneclover Other [employer] Other 01-17-2023 11:00-0400 Body mass index (BMI) [Ratio] 49.5 kg/m2 Nicholas Arteaga Other [employer] Other 01-17-2023 11:00-0400 Body weight 118.84 kg Nicholas Anneanisha Other [employer] Other 01-17-2023 11:00-0400 Diastolic blood pressure 81 mm[Hg] Nicholas Arteaga Other [employer] Other 01-17-2023 11:00-0400 Systolic blood pressure 155 mm[Hg] Nicholas Arteaga Other [employer] Other 07-20-2021 14:45-0500 Body weight 114.76 kg Jericho Qureshi Other [employer] Other Encounters Encounter Date Encounter Type Care Provider Facility Start: 06-24-2023 End: 06-25-2023 ambulatory LALITA WESTBROOK [facility] Start: 06-23-2023 End: 06-24-2023 ambulatory LALIAT WESTBROOK [facility] Start: 06-22-2023 End: 06-23-2023 ambulatory TRINA DANIEL [facility] Start: 06-19-2023 End: 06-19-2023 [facility]-06-[facility]23 Niya Gutierrez RN [facility] Start: 02-21-2023 End: 02-21-2023 ambulatory Stephen Wilkins Facility:[facility] Start: 02-21-2023 End: 02-21-2023 ambulatory DO Lalita Rumschlag Work Phone: [facility] Work Phone: Start: 02-21-2023 End: 02-21-2023 Patient encounter procedure DO Lalita Rumschlag Work Phone: [facility] Work Phone: Start: 01-17-2023 End: 01-17-2023 ambulatory Nicholas Arteaga Other [employer] Other Start: 01-17-2023 [facility] visit new patient Nicholas Arteaga [facility] Start: 07-20-2021 End: 07-20-2021 ambulatory Jericho Qureshi Other [employer] Other Start: 07-20-2021 Office outpatient visit 25 minutes Jericho Qureshi [facility] Start: 06-03-2020 End: 06-03-2020 ambulatory JERICHO QURESHI Facility:[facility]1 Procedures Date Procedure Procedure Detail Performing Clinician Start: 02-21-2023 Esophageal manometry DO Lalita Rumschlag Work Phone: Plan of Treatment Date Care Activity Detail Author Start: 03-22-2024 Tobacco Screening Tobacco Screening [facility] Start: 02-09-2024 Adult BMI Screening Adult BMI Screening [facility] Start: 09-20-2023 End: 09-20-2023 Patient encounter procedure 09/20/2023 2:00 PM EDT Office Visit [facility] [address] [place] [id number] Sia Grider, PASoledadC [address] [place] [address] [facility] Start: 02-21-2023 [facility] Start: 01-13-2023 COVID-19 Vaccine ( season) COVID-19 Vaccine ( season) [facility] Start: 01-13-2023 Influenza vaccination Influenza Vaccine [facility] Start: 2013 Administration of varicella zoster vaccine Zoster (Shingles) Vaccine (1 of 2) [facility] Start: 1984 Screening for malignant neoplasm of cervix Pap Smear [facility] Start: 1982 DTaP,Tdap and Td Vaccines (1 - Tdap) DTaP,Tdap and Td Vaccines (1 - Tdap) [facility] Start: 1981 Adult BMI Follow Up Plan Adult BMI Follow Up Plan [facility] Start: 1975 Depression Screening Depression Screening [facility] Immunizations Immunization Date Immunization Notes Care Provider Fa cility 07-22-2020 COVID-19 Vaccine, vector-nr, rS-Ad26, PF, 0.5mL Pauly Gutierrez RN [facility] 03-11-2020 influenza virus vaccine, unspecified formulation Pauly Gutierrez RN [facility] Payers Date Payer Category Payer Medicare [id number] 2023 Medicare [id number] 2023 Self-pay 2022 Medicare MEDICARE MEDICAR E PART A & B [id number] 2022-Present [phone] [address] [place] [address] [id number] 1965 Unknown [id number] 1965 Unknown [id number] 1963 Unknown [id number] 1963 Unknown [id number] 1963 Unknown [id number] 1959 Unknown [id number] Medicaid [id number] Unknown [id number] Social History Date Type Detail Facility Start: 05-29-2020 End: 03-22-2023 Sex Assigned At [facility] Other Start: 1965 Sex Assigned At Female F [facility] Start: 03-30-2022 [facility] Start: 03-30-2022 Tobacco use and exposure Smokeless tobacco non-user [facility] Start: 03-22-2023 Alcohol intake Current drinke r of alcohol (finding) [facility] Start: 05-29-2020 End: 03-22-2023 History of Social function [facility] Childcare Unknown [facility] Start: 03-01-2017 Alcohol Comment occasional Eating [facility] Start: 1965 Sex Assigned At Not on file P [facility] Goals Date Patient Goal Desired Activity /State Note 06-06-2023 Telephone Encounter - Pauly Gutierrez RN - 06/06/2023 11:08 AM EST Note Date & Type Note Facility 06-06-2023 Miscellaneous Notes Formattin g of this note might be different from the original. Last OV: 03/22/2023 Next OV: 09/20/2023 OARRS appropriate: yes Last UDS: n/a [facility]: [facility] Patient called office today to request refill for Celebrex 100 mg. She requests 90-day fill. She also asks that Sia be informed of the following: Patient explained that she had been taking Meloxicam but was experiencing arm and leg pain. Per patient Sia discontinued the Meloxicam and prescribed Celebrex 100 mg. Patient reports that she was tolerating Celebrex well but went back to taking Meloxicam. Once back on Meloxicam her arm was again very painful. She states she stopped taking the Meloxicam 04/01/2023 and then restarted Celebrex 04/08/2023. Patient states prescription is for Celebrex 100 mg BID however she has only been taking it once daily. She states that the daily does has been effective. documented in this encounter [facility] [facility] Telephone encounter Note 06-06-2023 Telephone Encounter - Pauly Gutierrez RN - 06/06/2023 11:08 AM EST Note Date & Type Note Facility 06-06-2023 Telephone encounter Note Last OV: 03/22/2023 Next OV: 09/20/2023 OARRS appropriate: yes Last UDS: n/a Pharmacy: [facility] Patient called office today to request refill for Celebrex 100 mg. She requests 90-day fill. She also asks that Sia be informed of the following: Patient explained that she had been taking Meloxicam but was experiencing arm and leg pain. Per patient Sia discontinued the Meloxicam and prescribed Celebrex 100 mg. Patient reports that she was tolerating Celebrex well but went back to taking Meloxicam. Once back on Meloxicam her arm was again very painful. She states she stopped taking the Meloxicam 04/01/2023 and then restarted Celebrex 04/08/2023. Patient states prescription is for Celebrex 100 mg BID however she has only been taking it once daily. She states that the daily does has been effective. [facility] Evaluation note 01-17-2023 Note Date & Type [...] describes a poking pain in her chest. [employer] Other Evaluation note 07-20-2021 Note Date & Type Note Facility 07-20-2021 Evaluation note Encounter Date Diagnosis Assessment Notes Jul, GERD (gastroesopha geal reflux disease) (ICD-10 - K21.9) Jul, Abdominal pain (ICD-10 - R10.9) severe sharp pain imaging ordered and medication started Jul, Black stools (ICD-10 - K92.1) [employer] Other Clinical Note 06-03-2020 Note Date & [...] in 5 years based on family history. [facility] Signed and Approved by: JERICHO QURESHI JR 06/10/2020 11:26:00 [facility] Evaluation note Note Date & Type Note Facility Evaluation note No assessment information [facility] Work Phone: History general Narrative - Reported Note Date & Type Note Facility History general Narrative - Reported Type Medical History GERD Medical History esophageal spasm Surgical History appendectomy Surgical History C section [employer] Other History general Narrative - Reported Note Date & Type Note Facility History general Narrative - Reported Type Medical History GERD Medical History esophageal spasm Surgical History appendectomy Surgical History C section Surgical History ablasion-righ and left knee Hospitalization History see above [employer] Other Instructions Note Date & Type Note Facility Instructions Not on filedocumented in this en counter [facility] Summary Purpose Family History No Family History Records FoundNo Family History Records FoundNo Family History Records Found Advance Directives No Advanced Directives Records Found Advance Directive Response Recorded Date/ Time Advance Directives No February 20, 2023 4:45pm Chief Complaint and Reason for Visit Chief Complaint gerd, non-cardiac ch est pain Additional Source Comments INFORMATION SOURCE (unrecogn ized section and content) DATE CREATED AUTHOR 09/11/2020 [facility] DATE CREATED AUTHOR AUTHOR'S ORGANIZ ATION 03/19/2023 [facility] DATE CREATED AUTHOR AUTHOR'S ORGANIZ ATION 06/26/2023 [facility] REASON FOR VISIT (unrecogniz ed section and content) Reason Onset Date Comments Med Refill 06/06/2023 Care Teams (unrecognized sec tion and content) Team Status: Active Member Role Status Dates Lalita Westbrook DO Primary Care Provider Active Team Status: Inactive Member Role Status Dates Stephen Wilkins MD Attending Provider Active Lalita Westbrook DO Primary Care Provider Active Integration Technician Relationship Specialty Start Date End Date Lalita Westbrook DO [address] [place] [address] PCP - General Family Medicine 11/26/19 FOR RECORDS PERTAINING TO PATIENTS WHO ARE [...] BE BASED ON THE PRIMARY CLINICAL RECORDS. [employer] provides no warranty or guarantee of the accuracy or completeness of information in this document.
== END 2023-07-03 13:28 | disposition home or self-care (01) ==
LOC: VC 13:27
PROVIDERS: PCP Radiology Diagnostic Radiology; Visit Provider Radiology Diagnostic Radiology
DX: I80.01 Phlebitis and thrombophlebitis of superficial vessels of right lower extremity (principal)
CPT/HCPCS: 93971; G0463

== ENCOUNTER 2023-07-11 13:22 | Outpatient (OUT) | payer MEDICARE, SELFPAY ==
--- NOTE | 2023-07-11 13:25 | VEIN_ITS ---
[address] [address] Patient Name: KATIANA MARISCAL MRN: [id number] date: 1965 Sex: F Assigned Patient Location: Current Patient Location: Accession/Order Number: [id number] Exam Date: 07/11/2023 13:29 Report Date: 07/11/2023 14:13 At the request of: JERICHO MAS Procedure: VC Endovenous Ablation 1VeinLT EXAMINATION: VC Endovenous Ablation 1Vein left anterior accessory saphenous vein HISTORY: Pain due to varicose veins of bilateral legs I83.813 COMPARISON: No relevant comparison available. TECHNIQUE: The risks and benefits of the procedure had been previously discussed, and were rediscussed at length. Informed written consent was obtained. Marianna Cortez and Mello Ko assisted. Time out procedure was performed. The left lower extremity was prepared and draped in the usual sterile fashion to allow knee flexion in the sterile field. Duplex ultrasound probe was draped in a sterile cover, sterile transmission gel was used. Venous mapping was performed with the areas of dilation and large tributaries marked. The total length was 14 cm from the entry mid thigh to 3 cm below the saphenofemoral junction. The diameter of the anterior accessory saphenous vein ranged from 6-11 mm. A 30 gauge needle and 1% buffered lidocaine was used to anesthetize the entry site. A 4 mm incision was made with a scalpel and the saphenous vein was entered percutaneously under direct ultrasound guidance with a micropuncture set, a single stick was successful in gaining access. A micro-guide wire was inserted and the needle removed. A micro-set including a dilator was inserted over the microwire and the needle and dilator were removed. A 0.018 guide wire was inserted through the micro-set and threaded through the saphenous vein to the saphenofemoral junction. The dilator was removed and an introducer sheath was inserted over the wire until the end of the sheath entered the saphenofemoral junction. The dilator and wire were removed and the 600 micron fiber was introduced and placed and positioned so that it extended beyond the sheath and was 3 cm peripheral to the saphenofemoral femoral junction. Final position of the fiber was determined by ultrasound guidance and duplex imaging. Tumescent anesthetic was delivered by ultrasound guidance. 75 cc of fluid was delivered along the entire course of the saphenous vein. The solution consisted of 1000 cc of normal saline with 40 mL of 1% lidocaine and 20 mL of sodium bicarbonate. A final positioning check was made. The energy source was turned on by means of the foot pedal and the fiber and sheath were withdrawn. The total number of Joules delivered was 741. The laser was active for 93seconds under continuous pulse, average laser use of 8 J. Laser start time 2:03 PM 07/11/2023 . Laser stop time 2:05 PM the 07/11/2023 . A duplex ultrasound revealed compressibility and flow at the saphenofemoral junction immediately after the procedure. Hemostasis at the access site was achieved. The skin incision of the saphenous vein was closed with a 4 x 4. A compression stocking was applied. Postop instructions were given. A follow up appointment was recommended and scheduled. The patient tolerated the procedure well and was discharged in good condition . VEIN/VC Endovenous Ablation 1VeinLT IMPRESSION: Technically successful endovenous laser ablation of the left anterior accessory saphenous vein Electronically authenticated by: JERICHO MAS Date: 07/11/2023 14:13
[2023-07-11] MEDS: LIDOCAINE HCL 1% 100 MG/10 ML MDV INJ (13:48)
[2023-07-11] MEDS: 0.9 % SODIUM CHLORIDE 500 ML, LIDOCAINE HCL 20 ML, SODIUM BICARBONATE 10 MEQ INJ (13:51)
== END 2023-07-11 13:23 | disposition home or self-care (01) ==
LOC: VC 13:22
PROVIDERS: PCP Radiology Diagnostic Radiology; Visit Provider Radiology Diagnostic Radiology
DX: I83.813 Varicose veins of bilateral lower extremities with pain (principal)
CPT/HCPCS: 36478

== ENCOUNTER 2023-07-17 07:58 | Outpatient (OUT) | payer MEDICARE, SELFPAY ==
--- NOTE | 2023-07-17 08:00 | VEIN_ITS ---
Patient Name: KATIANA MARISCAL MR#: [id number] : 1965 Exam Date: 07/17/2023 Ordering Doctor: DR FRANCISCO WHITAKER M.D. RADIOLOGY REPORT PROCEDURE: VC EXT VENOUS LT LIMITED COMPARISON: VC EXT VENOUS LT LIMITED, 06/12/2023. INDICATIONS: I80.02 Phlebitis of superficial veins of left lower extremity TECHNIQUE: Lower extremity marcum scale and Duplex Doppler evaluation of the deep venous system from the inguinal ligament through the calf veins. FINDINGS: REGION: Left lower extremity. THROMBI: Negative for DVT. Heat induced thrombus in left AASV 1.5 cm from SFJ and extends to mid thigh. COMPRESSIBILITY: Non-compressible segments corresponding to thrombus FLOW: Areas of no flow corresponding to thrombus CONCLUSION: Post ablation occlusion of the left anterior accessory saphenous vein with heat induced thrombus 1.5 cm from the saphenofemoral junction Dictated by: Francisco Whitaker MD on 07/17/2023 at 08:27 Approved by: Francisco Whitaker MD on 07/17/2023 at 08:28
--- NOTE | 2023-07-17 08:00 | VEIN_ITS ---
Patient Name: KATIANA MARISCAL MR#: [id number] : 1965 Exam Date: 07/17/2023 Ordering Doctor: DR FRANCISCO WHITAKER M.D. RADIOLOGY REPORT PROCEDURE: FACILITY EST LMTD VEIN CENTER - OFFICE VISIT FOLLOW UP COMPARISON: [facility] EST LMTD, 07/03/2023. [facility] EST LMTD, 06/12/2023. PROGRESS NOTES: The patient reports no significant problems following intravenous laser ablation of the left major accessory saphenous vein. The patient did not require oral analgesics. The patient has worn her compression stocking. The patient does report pain in the right popliteal fossa. Physical exam demonstrates the incision on the left anterior thigh to be sealed. Small area of bruising measuring 3 cm in diameter. Left anterior accessory saphenous vein cannot be palpated likely related to body habitus Review of the ultrasound performed the same day demonstrates occlusive thrombus extending throughout the treated left anterior accessory saphenous vein with heat induced thrombus 1.5 cm in the saphenofemoral junction. Multiple varicosities in the right popliteal fossa corresponding to the patient's pain likely related to rubbing from the compression stocking with several pre hemorrhagic veins observed. The patient expressed a desire to proceed with treatment of incompetent varicose veins with micro foam chemical ablation. We will treat veins on the right leg 1st as this is causing her the most problem. VEIN/[facility] EST LMTD IMPRESSION: 1. Successful ablation of the left anterior accessory saphenous vein 2. Persistent bilateral incompetent varicose veins PLAN: Micro foam chemical ablation right leg incompetent varicose vein Nurse notes, history and physical were reviewed and confirmed, see attached forms. The nurse was present throughout the physical exam and consultation Dictated by: Francisco Whitaker MD on 07/17/2023 at 08:35 Approved by: Francisco Whitaker MD on 07/17/2023 at 08:36
--- OUTSIDE RECORDS SUMMARY | 2023-07-17 08:00 | XMS_ITS | CCD ---
Author Name Unknown Address [address] [place] [address] Organization [facility] Care Team Providers Care Corporate Technical Recruiter Name Role Phone JERICHO QURESHI JR Attending Unavailable JERICHO QURESHI JR Consulting Unavailable JERICHO QURESHI JR Admitting Unavailable [facility] Primary Care Unava ilCHELSEA Monroe Consulting Unavailable Jericho Qureshi Unavailable Nicholas Arteaga Unavailable MD Stephen Wilkins Attending Provider [phone] DO Lalita Westbrook Primary Care Provider Stephen Wilkins Admitting UnavailStephen Velez Attending Unavailabl e Dariana Lalita Primary Care Unavailable Rumschbrian DARLING Lalita Salvatore Primary Care Provider DARIANA LALITA K Primary Care Unavailable TRIAN DANIEL Attending Unavailable TRINA DANIEL Attending Unavailable [...] Active Start: 01-17-2023 take 1 capsule by [facility] once daily Omeprazole 40 MG 1 capsule 30 minutes before morning meal Orally Once a day for 30 days Jan, Active take 1 capsule by [facility] every twenty-four hours Omeprazole 20 MG 1 [...] 07-20-2021 Episodic Other aftercare (1 source) Other [facility] (current) drug therapy; Translations: [[facility] CURRENT DRUG THERAPY] Onset: 06-04-2020 Episodic Other [...] 06-24-2023 Albumin [Mass/Vol] 4.0 g/dL Normal 3.2-5.3 [facility] Comment on above: Performed By: #### C MP #### [facility] ([id number]) [address], [address] [place] [address] ALP [Catalytic activity/Vol] 92 U/L Normal 39-130 [facility] Comment on above: Performed By: #### C MP #### [facility] ([id number]) [address], [address] [place] [address] ALT [Catalytic activity/Vol] 23 U/L Normal 0-31 [facility] Comment on above: Performed By: #### C MP #### [facility] ([id number]) [address], [address] [place] [address] Anion gap [Moles/Vol] 9 mmol/L Normal 5-15 [facility] Comment on above: Performed By: #### C MP #### [facility] ([id number]) [address], [address] [place] [address] AST [Catalytic activity/Vol] 24 U/L Normal 0-41 [facility] Comment on above: Performed By: #### C MP #### [facility] ([id number]) [address], [address] [place] [address] Bilirubin [Mass/Vol] 1.0 mg/dL Normal 0.3-1.2 [facility] Comment on above: Performed By: #### C MP #### [facility] ([id number]) [address], [address] [place] [address] Calcium [Mass/Vol] 9.0 mg/dL Normal 8.5-10.5 [facility] Comment on above: Performed By: #### C MP #### [facility] ([id number]) [address], [address] [place] [address] Chloride [Moles/Vol] 103 mmol/L Normal 98-109 [facility] Comment on above: Performed By: #### C MP #### [facility] ([id number]) [address] [place] [address] CO2 [Moles/Vol] 27 mmol/L Normal 22-32 [facility] Comment on above: Performed By: #### C MP #### [facility] ([id number]) [address] [place] [address] Creatinine [Mass/Vol] 0.53 mg/dL Normal 0.40-1.00 [facility] Comment on above: Result Comment: METH OD TRACEABLE TO IDMS STANDARD Performed By: #### C MP #### [facility] ([id number]) [address] [place] [address] eGFR (CKD-EPI) NON-RACE DEPENDENT >90 Normal >59 [facility] Comment on above: Result Comment: Reported eGFR is based on the CKD-EPI 2020 equation that does not use a race coefficient. Performed By: #### C MP #### [facility] ([id number]) [address], [address] [place] [address] Glucose [Mass/Vol] 170 mg/dL High 65-99 [facility] Comment on above: Performed By: #### C MP #### [facility] ([id number]) [address] [place] [address] Potassium [Moles/Vol] 4.2 mmol/L Normal 3.5-5.0 [facility] Comment on above: Performed By: #### C MP #### [facility] ([id number]) [address] [place] [address] Protein [Mass/Vol] 7.2 g/dL Normal 6.0-8.0 [facility] Comment on above: Performed By: #### C MP #### [facility] ([id number]) [address], [address] [place] [address] Sodium [Moles/Vol] 139 mmol/L Normal 134-146 [facility] Comment on above: Performed By: #### C MP #### [facility] ([id number]) [address], [address] [place] [address] Urea nitrogen [Mass/Vol] 15 mg/dL Normal 5-23 [facility] Comment on above: Performed By: #### C MP #### [facility] ([id number]) [address] [place] [address] HGB A1C (GLYCO-HGB)on 2023 Glucose [Mass/Vol] 186 mg/dL Normal [facility] Comment on above: Performed By: #### C MP #### [facility] ([id number]) [address] [place] [address] HbA1c (Bld) [Mass fraction] 8.1 % High 4.4-5.6 [facility] Comment on above: Result Comment: NOTE ADA Guidelines Result HgbA1c Normal : less than 5.7 % Prediabetes : 5.7 % to 6.4 % Diabetes : > 6.4 % Use with caution in patients with abnormal hemoglobin variants as the half-life of red blood cells and in vivo glycation rates are affected. Performed By: #### C MP #### [facility] ([id number]) [address] [place] [address] Vital Signs Date Time Vital Sign Value Performing Clinician Jacque alcala 02-21-2023 06:46-0400 Body height 156.21 cm DO Estech Work Phone: [facility] 02-21-2023 06:46-0400 Body weight 74.84 kg DO Lalita Westbrook Work Phone: [facility] 01-17-2023 11:00-0400 Body height 154.94 cm Nicholas Jasmyneclover Other [facility] Other 01-17-2023 11:00-0400 Body mass index (BMI) [Ratio] 49.5 kg/m2 Nicholas Arteaga Other [facility] Other 01-17-2023 11:00-0400 Body weight 118.84 kg Nicholas Anneanisha Other [facility] Other 01-17-2023 11:00-0400 Diastolic blood pressure 81 mm[Hg] Nicholas Arteaga Other [facility] Other 01-17-2023 11:00-0400 Systolic blood pressure 155 mm[Hg] Nicholas Arteaga Other [facility] Other 07-20-2021 14:45-0500 Body weight 114.76 kg Jericho Qureshi Other [facility] Other Encounters Encounter Date Encounter Type Care Provider Facility Start: 06-24-2023 End: 06-25-2023 ambulatory LALITA WESTBROOK [facility] Start: 06-23-2023 End: 06-24-2023 ambulatory LALITA WESTBROOK [facility] Start: 06-22-2023 End: 06-23-2023 ambulatory TRINA DANIEL [facility] Start: 06-19-2023 End: 06-19-2023 [facility]: 06-06-2023 Niya Gutierrez RN [facility] Start: 02-21-2023 End: 02-21-2023 ambulatory Stephen Wilkins Facility:[facility] Start: 02-21-2023 End: 02-21-2023 ambulatory DO Lalita Rumschlag Work Phone: [facility] Work Phone: Start: 02-21-2023 End: 02-21-2023 Patient encounter procedure DO Lalita Rumschlag Work Phone: [facility] Work Phone: Start: 01-17-2023 End: 01-17-2023 ambulatory Nicholas Arteaga Other [facility] Other Start: 01-17-2023 [facility] visit new patient Nicholas Arteaga [facility] Start: 07-20-2021 End: 07-20-2021 ambulatory Jericho Qureshi Other [facility] Other Start: 07-20-2021 Office outpatient visit 25 minutes Jericho Qureshi [facility] Start: 06-03-2020 End: 06-03-2020 ambulatory JERICHO QURESHI Facility:[facility]1 Procedures Date Procedure Procedure Detail Performing Clinician Start: 02-21-2023 Esophageal manometry DO Lalita Rumschlag Work Phone: Plan of Treatment Date Care Activity Detail Author Start: 03-22-2024 Tobacco Screening Tobacco Screening [facility] Start: 02-09-2024 Adult BMI Screening Adult BMI Screening [facility] Start: 09-20-2023 End: 09-20-2023 Patient encounter procedure 09/20/2023 2:00 PM EDT Office Visit [facility] [address] [place] [id number] Sia Grider, PASoledadC [address] [place] [address] [facility] Start: 02-21-2023 [facility] Start: 01-13-2023 COVID-19 Vaccine ( season) COVID-19 Vaccine ( season) [facility] Start: 01-13-2023 Influenza vaccination Influenza Vaccine [facility] Start: 2013 Administration of varicella zoster vaccine Zoster (Shingles) Vaccine (1 of 2) [facility] Start: 1984 Screening for malignant neoplasm of cervix Pap Smear [facility] Start: 1982 DTaP,Tdap and Td Vaccines (1 - Tdap) DTaP,Tdap and Td Vaccines (1 - Tdap) [facility] Start: 1981 Adult BMI Follow Up Plan Adult BMI Follow Up Plan [facility] Start: 1975 Depression Screening Depression Screening [facility] Immunizations Immunization Date Immunization Notes Care Provider Fa cility 07-22-2020 COVID-19 Vaccine, vector-nr, rS-Ad26, PF, 0.5mL Pauly Gutierrez RN [facility] 03-11-2020 influenza virus vaccine, unspecified formulation Pauly Gutierrez RN [facility] Payers Date Payer Category Payer Medicare [id number] 2023 Medicare [id number] 2023 Self-pay 2022 Medicare MEDICARE MEDICAR E PART A & B [id number] 2022-Present [phone] [address] [place] [address] [id number] 1965 Unknown [id number] 1965 Unknown [id number] 1965 Unknown [id number] 1965 Unknown [id number] 1965 Unknown [id number] 1959 Unknown [id number] Medicaid [id number] Unknown [id number] Social History Date Type Detail Facility Start: 05-29-2020 End: 03-22-[address] [facility] Other Start: 1965 Sex Assigned At Female F [facility] Start: 03-30-2022 [facility] Start: 03-30-2022 Tobacco use and exposure Smokeless tobacco non-user [facility] Start: 03-22-2023 Alcohol intake Current drinke r of alcohol (finding) [facility] Start: 05-29-2020 End: 03-22-2023 History of Social function [facility] Childcare Unknown [facility] Start: 03-01-2017 Alcohol Comment occasional [facility] Start: 1965 Sex Assigned At Not on file P [facility] Goals Date Patient Goal Desired Activity [...] has been effective. documented in this encounter [employer] Telephone encounter Note 06-06-2023 Telephone Encounter [...] that the daily does has been effective. [employer] Evaluation note 01-17-2023 Note Date & [...] describes a poking pain in her chest. [facility] Other Evaluation note 07-20-2021 Note Date & Type Note Facility 07-20-2021 Evaluation note Encounter Date Diagnosis Assessment Notes Jul, GERD (gastroesopha geal reflux disease) (ICD-10 - K21.9) Jul, Abdominal pain (ICD-10 - R10.9) severe sharp pain imaging ordered and medication started Jul, Black stools (ICD-10 - K92.1) [facility] Other Clinical Note 06-03-2020 Note Date & [...] in 5 years based on family history. [facility] Signed and Approved by: JERICHO QURESHI JR 06/10/2020 11:26:00 [facility] Evaluation note Note Date & Type Note Facility Evaluation note No assessment information [facility] Work Phone: History general Narrative - Reported Note Date & Type Note Facility History general Narrative - Reported Type Medical History GERD Medical History esophageal spasm Surgical History appendectomy Surgical History C section [facility] Other History general Narrative - Reported Note Date & Type Note Facility History general Narrative - Reported Type Medical History GERD Medical History esophageal spasm Surgical History appendectomy Surgical History C section Surgical History ablasion-righ and left knee Hospitalization History see above [facility] Other Instructions Note Date & Type Note [...] DATE CREATED AUTHOR AUTHOR'S ORGANIZ ATION 03/19/2023 [facility] DATE CREATED AUTHOR AUTHOR'S ORGANIZ ATION 06/26/2023 [facility] REASON FOR VISIT (unrecogniz ed section and content) Reason Onset Date Comments Med Refill 06/06/2023 Care Teams (unrecognized sec tion and content) Team Status: Active Member Role Status Dates Lalita Westbrook DO Primary Care Provider Active Team Status: Inactive Member Role Status Dates Stephen Wilkins MD Attending Provider Active Lalita Westbrook DO Primary Care Provider Active Corporate Technical Recruiter Relationship Specialty Start Date End Date Lalita Westbrook DO [address] [place] [address] PCP - General Family Medicine 11/26/19 FOR [...] BE BASED ON THE PRIMARY CLINICAL RECORDS. [employer] provides no warranty or guarantee of the accuracy or completeness of information in this document.
== END 2023-07-17 07:59 | disposition home or self-care (01) ==
LOC: VC 07:58
PROVIDERS: PCP Radiology Diagnostic Radiology; Visit Provider Radiology Diagnostic Radiology
DX: I80.02 Phlebitis and thrombophlebitis of superficial vessels of left lower extremity (principal)
CPT/HCPCS: 93971; G0463

== ENCOUNTER 2023-07-24 08:59 | Outpatient (OUT) | payer MEDICARE, SELFPAY ==
--- NOTE | 2023-07-24 09:01 | VEIN_ITS ---
[address] [address] Patient Name: KATIANA MARISCAL MRN: [id number] date: 1965 Sex: F Assigned Patient Location: Current Patient Location: Accession/Order Number: [id number] Exam Date: 07/24/2023 09:02 Report Date: 07/24/2023 10:04 At the request of: JERICHO MAS Procedure: VC INJ Foam Sclerosant WUS INSTALLATION DRAFTER PROCEDURE: VC INJ Foam Sclerosant WUS INSTALLATION DRAFTER COMPARISON: None. HISTORY: Pain due to varicose veins of bilateral legs I83.813 Pre-operative Diagnosis: CEAP class C3 venous insufficiency with pain, tenderness, edema and incompetent right great saphenous and varicose vein(s), chronic venous insufficiency right leg secondary to venous incompetence Post-operative Diagnosis: CEAP class C3 venous insufficiency with pain, tenderness, edema and incompetent right great saphenous and varicose vein(s), chronic venous insufficiency right leg secondary to venous incompetence Procedure Performed: 1. Ultrasound-guided microfoam chemical ablation with Varithenaregistered 2. Intraoperative ultrasound guidance Anesthesia: None Indications for Procedure: 58-year-old female who presents with a long history of lower extremity pain swelling and extensive varicose veins. The patient failed conservative medical therapy including medical compression stockings, exercise and analgesics. Prior procedures include endovenous laser ablation. Multiple incompetent varicosities of the right leg. Duplex scan showed reflux and enlarged diameters up to 7 mm. The patient underwent informed consent including management options where the complications of infection, bleeding, pain, and skin injury were discussed. Particular attention was spent discussing thrombus extension and deep vein thrombosis as well as the possibility of pulmonary embolus and treatment with oral or injectable blood thinners. Procedure: The patient walked to the procedure room. All applicable staff donned appropriate apparel. A procedure timeout was performed to confirm correct patient, correct extremity, correct procedure, and correct room set-up including presence of all applicable supplies, devices, and drugs. A duplex ultrasound, performed by myself confirmed the location and incompetence of branch saphenous varicosities and their course was marked on the skin together with the dilated tributaries. The extent of treatment of the vein and the associated varicosities was determined through ultrasound mapping. The skin was prepped and then punctured with a butterfly needle and advanced under ultrasound guidance. The Varithenaregistered canister was activated and the canister was primed and purged as required in the instructions for use. Varithenaregistered was drawn into a sterile syringe. The following injections were made. 7 cc injected into a 7 mm incompetent distal right great saphenous vein at the level of the ankle 8 cc injected into a 6 mm varicose vein mid to distal medial right lower leg Varithenaregistered was slowly administered at 0.5-1.0 cc/second with close observation by ultrasound of its course in the vessels. Total volume utilized was: 15cc. Following administration of Varithenaregistered the leg was elevated and the patient was asked to repeatedly dorsiflex the ankle to limit flow of Varithenaregistered into perforating veins. Once appropriate spasm had been confirmed in the treated veins, the vascular catheter was removed from the leg and light pressure was applied over the puncture site for hemostasis. The common femoral and deep superficial veins were then evaluated for flow and compressibility prior to dressing placement. The lower extremity was kept elevated at 45 degrees above the horizontal and cording material was applied over the saphenous segments and tributaries to allow for eccentric compression over the target vessels including the targeted saphenous vein(s). A multilayer dressing was applied consisting of foam pads, coban and thigh-high 20-30 mm Hg compression elastic support hose were placed on the patient. The leg was lowered only after compression had been applied and the patient was immediately ambulatory. The patient ambulated 10 minutes under supervision and was without apparent concerns at time of release. Post-care instructions include advising patient to keep post-treatment bandages in place and dry for 48 hours, avoid extended periods of inactivity, avoid heavy exercise for one week, wear compression stockings on the treated leg continuously for two weeks, to walk daily for 10 minutes over the next month. The patient was instructed to take an anti-inflammatory medicine as needed and to follow up for color duplex scan of the Saphenous veins, the treated branch saphenous varicosities, the adjacent deep veins, and additional treatment within 7 days. PERSONNEL: Mello Ko RN Electronically authenticated by: JERICHO MAS Date: 07/24/2023 10:04
--- OUTSIDE RECORDS SUMMARY | 2023-07-24 09:02 | XMS_ITS | CCD ---
Author Name Unknown Address [address] [place] [address] Organization [facility] Care Team Providers Care Surgical Product Sales Consultant Name Role Phone JERICHO QURESHI JR Attending Unavailable JERICHO QURESHI JR Consulting Unavailable JERICHO QURESHI JR Admitting Unavailable [facility] Primary Care Unava ilCHELSEA Monroe Consulting Unavailable Jericho Qureshi Unavailable Nicholas Arteaga Unavailable MD Stephen Wilkins Attending Provider [phone] DO Lalita Westbrook Primary Care Provider Stephen Wilkins Admitting UnavailStephen Velez Attending Unavailabl e Dariana Lalita Primary Care Unavailable Rumschbrian DARLING Lalita Salvatore Primary Care Provider [phone] DARIANA LALITA K Primary Care Unavailable TRINA [...] Active Start: 01-17-2023 take 1 capsule by [facility] once daily Omeprazole 40 MG 1 capsule 30 minutes before morning meal Orally Once a day for 30 days Jan, Active take 1 capsule by [facility] every twenty-four hours Omeprazole 20 MG [...] 07-20-2021 Episodic Other aftercare (1 source) Other longterm (current) drug therapy; Translations: [OTH [facility] CURRENT DRUG THERAPY] Onset: 06-04-2020 Episodic Other [...] 06-24-2023 Albumin [Mass/Vol] 4.0 g/dL Normal 3.2-5.3 [facility] Comment on above: Performed By: #### C MP #### [facility] ([id number]) [address], [address] [place] [address] ALP [Catalytic activity/Vol] 92 U/L Normal 39-130 [facility] Comment on above: Performed By: #### C MP #### [facility] ([id number]) [address], [address] [place] [address] ALT [Catalytic activity/Vol] 23 U/L Normal 0-31 [facility] Comment on above: Performed By: #### C MP #### [facility] ([id number]) [address], [address] [place] [address] Anion gap [Moles/Vol] 9 mmol/L Normal 5-15 [facility] Comment on above: Performed By: #### C MP #### [facility] ([id number]) [address], [address] [place] [address] AST [Catalytic activity/Vol] 24 U/L Normal 0-41 [facility] Comment on above: Performed By: #### C MP #### [facility] ([id number]) [address], [address] [place] [address] Bilirubin [Mass/Vol] 1.0 mg/dL Normal 0.3-1.2 [facility] Comment on above: Performed By: #### C MP #### [facility] ([id number]) [address], [address] [place] [address] Calcium [Mass/Vol] 9.0 mg/dL Normal 8.5-10.5 [facility] Comment on above: Performed By: #### C MP #### [facility] ([id number]) [address], [address] [place] [address] Chloride [Moles/Vol] 103 mmol/L Normal 98-109 [facility] Comment on above: Performed By: #### C MP #### [facility] ([id number]) [address], [address] [place] [address] CO2 [Moles/Vol] 27 mmol/L Normal 22-32 [facility] Comment on above: Performed By: #### C MP #### [facility] ([id number]) [address] [address] [place] [address] Creatinine [Mass/Vol] 0.53 mg/dL Normal 0.40-1.00 [facility] Comment on above: Result Comment: METH OD TRACEABLE TO IDMS STANDARD Performed By: #### C MP #### [facility] ([id number]) [address], [address] [place] [address] eGFR (CKD-EPI) NON-RACE DEPENDENT >90 Normal >59 [facility] Comment on above: Result Comment: Reported eGFR is based on the CKD-EPI 2020 equation that does not use a race coefficient. Performed By: #### C MP #### [facility] ([id number]) [address] [place] [address] Glucose [Mass/Vol] 170 mg/dL High 65-99 [facility] Comment on above: Performed By: #### C MP #### [facility] ([id number]) [address] [address] [place] [address] Potassium [Moles/Vol] 4.2 mmol/L Normal 3.5-5.0 [facility] Comment on above: Performed By: #### C MP #### [facility] ([id number]) [address] [address] [place] [address] Protein [Mass/Vol] 7.2 g/dL Normal 6.0-8.0 [facility] Comment on above: Performed By: #### C MP #### [facility] ([id number]) [address], [address] [place] [address] Sodium [Moles/Vol] 139 mmol/L Normal 134-146 [facility] Comment on above: Performed By: #### C MP #### [facility] ([id number]) [address] [place] [address] Urea nitrogen [Mass/Vol] 15 mg/dL Normal 5-23 [facility] Comment on above: Performed By: #### C MP #### [facility] ([id number]) [address], [address] [place] [address] HGB A1C (GLYCO-HGB)on 2023 Glucose [Mass/Vol] 186 mg/dL Normal [facility] Comment on above: Performed By: #### C MP #### [facility] ([id number]) [address] [place] [address] HbA1c (Bld) [Mass fraction] 8.1 % High 4.4-5.6 [facility] Comment on above: Result Comment: NOTE ADA Guidelines Result HgbA1c Normal : less than 5.7 % Prediabetes : 5.7 % to 6.4 % Diabetes : > 6.4 % Use with caution in patients with abnormal hemoglobin variants as the half-life of red blood cells and in vivo glycation rates are affected. Performed By: #### C MP #### [facility] ([id number]) [address], [address] [place] [address] Vital Signs Date Time Vital Sign Value Performing Clinician Jacque alcala 02-21-2023 06:46-0400 Body height 156.21 cm DO [employer] Work Phone: [facility] 02-21-2023 06:46-0400 Body weight 74.84 kg DO Lalita Westbrook Work Phone: [facility] 01-17-2023 11:00-0400 Body height 154.94 cm Nicholas Jasmyneclover Other [facility] Other 01-17-2023 11:00-0400 Body mass index (BMI) [Ratio] 49.5 kg/m2 Nicholas Arteaga Other [facility] Other 01-17-2023 11:00-0400 Body weight 118.84 kg Nicholas Anneanisha Other [facility] Other 01-17-2023 11:00-0400 Diastolic blood pressure 81 mm[Hg] Nicholas Arteaga Other [facility] Other 01-17-2023 11:00-0400 Systolic blood pressure 155 mm[Hg] Nicholas Arteaga Other [facility] Other 07-20-2021 14:45-0500 Body weight 114.76 kg Jericho Qureshi Other [facility] Other Encounters Encounter Date Encounter Type Care Provider Facility Start: 06-24-2023 End: 06-25-2023 ambulatory LALITA WESTBROOK [facility] Start: 06-23-2023 End: 06-24-2023 ambulatory LALITA WESTBROOK [facility] Start: 06-22-2023 End: 06-23-2023 ambulatory TRINA DANIEL [facility] Start: 06-19-2023 End: 06-19-2023 [facility]: 06-06-2023 Niya Gutierrez RN [facility] Start: 02-21-2023 End: 02-21-2023 ambulatory Stephen Wilkins Facility:[facility] Start: 02-21-2023 End: 02-21-2023 ambulatory DO Lalita Rumschlag Work Phone: [facility] Work Phone: Start: 02-21-2023 End: 02-21-2023 Patient encounter procedure DO Lalita Rumschlag Work Phone: [facility] Work Phone: Start: 01-17-2023 End: 01-17-2023 ambulatory Nicholas Arteaga Other [facility] Other Start: 01-17-2023 [facility] visit new patient Nicholas Arteaga [facility] Start: 07-20-2021 End: 07-20-2021 ambulatory Jericho Qureshi Other [facility] Other Start: 07-20-2021 Office outpatient visit 25 minutes Jericho Qureshi [facility] Start: 06-03-2020 End: 06-03-2020 ambulatory JERICHO QURESHI Facility:[facility] Procedures Date Procedure Procedure Detail Performing Clinician Start: 02-21-2023 Esophageal manometry DO Lalita Rumschlag Work Phone: Plan of Treatment Date Care Activity Detail Author Start: 03-22-2024 Tobacco Screening Tobacco Screening [facility] Start: 02-09-2024 Adult BMI Screening Adult BMI Screening [facility] Start: 09-20-2023 End: 09-20-2023 Patient encounter procedure 09/20/2023 2:00 PM EDT Office Visit [facility] [address] [place] [id number] Sia Grider, PASoledadC [address] [place] [address] [facility] Start: 02-21-2023 [facility] Start: 01-13-2023 COVID-19 Vaccine ( season) COVID-19 Vaccine ( season) [facility] Start: 01-13-2023 Influenza vaccination Influenza Vaccine [facility] Start: 2013 Administration of varicella zoster vaccine Zoster (Shingles) Vaccine (1 of 2) [facility] Start: 1984 Screening for malignant neoplasm of cervix Pap Smear [facility] Start: 1982 DTaP,Tdap and Td Vaccines (1 - Tdap) DTaP,Tdap and Td Vaccines (1 - Tdap) [facility] Start: 1981 Adult BMI Follow Up Plan Adult BMI Follow Up Plan [facility] Start: 1975 Depression Screening Depression Screening [facility] Immunizations Immunization Date Immunization Notes Care Provider Fa cility 07-22-2020 COVID-19 Vaccine, vector-nr, rS-Ad26, PF, 0.5mL Pauly Gutierrez RN [facility] 03-11-2020 influenza virus vaccine, unspecified formulation Pauly Gutierrez RN [facility] Payers Date Payer Category Payer Medicare [id number] 2023 Medicare [id number] 2023 Self-pay 2022 Medicare MEDICARE MEDICAR E PART A & B [id number] 2022-Present [phone] [address] [place] [address] [id number] 1965 Unknown [id number] 1965 Unknown [id number] 1965 Unknown [id number] 1965 Unknown [id number] 1965 Unknown [id number] 1959 Unknown [id number] Medicaid [id number] Unknown [id number] Social History Date Type Detail Facility Start: 05-29-2020 End: 03-22-2023 Sex Assigned At [facility] Other Start: 1965 Sex Assigned At Female F [facility] Start: 03-30-2022 [facility] Start: 03-30-2022 Tobacco use and exposure Smokeless tobacco non-user [facility] Start: 03-22-2023 Alcohol intake Current drinke r of alcohol (finding) [facility] Start: 05-29-2020 End: 03-22-2023 History of Social function [facility] Childcare Unknown [facility] Start: 03-01-2017 Alcohol Comment occasional [facility] Start: 1965 Sex Assigned At Not on file P [facility] Goals Date Patient Goal Desired Activity [...] has been effective. documented in this encounter [facility] Telephone encounter Note 06-06-2023 Telephone Encounter [...] that the daily does has been effective. [facility] Evaluation note 01-17-2023 Note Date & [...] describes a poking pain in her chest. [facility] Other Evaluation note 07-20-2021 Note Date & Type Note Facility 07-20-2021 Evaluation note Encounter Date Diagnosis Assessment Notes Jul, GERD (gastroesopha geal reflux disease) (ICD-10 - K21.9) Jul, Abdominal pain (ICD-10 - R10.9) severe sharp pain imaging ordered and medication started Jul, Black stools (ICD-10 - K92.1) [facility] Other Clinical Note 06-03-2020 Note Date & [...] in 5 years based on family history. [facility] Signed and Approved by: JERICHO QURESHI JR 06/10/2020 11:26:00 [facility] Evaluation note Note Date & Type Note Facility Evaluation note No assessment information [facility] Work Phone: History general Narrative - Reported Note Date & Type Note Facility History general Narrative - Reported Type Medical History GERD Medical History esophageal spasm Surgical History appendectomy Surgical History C section [facility] Other History general Narrative - Reported Note Date & Type Note Facility History general Narrative - Reported Type Medical History GERD Medical History esophageal spasm Surgical History appendectomy Surgical History C section Surgical History ablasion-righ and left knee Hospitalization History see above [facility] Other Instructions Note Date & Type Note [...] DATE CREATED AUTHOR AUTHOR'S ORGANIZ ATION 03/19/2023 [facility] DATE CREATED AUTHOR AUTHOR'S ORGANIZ ATION 06/26/2023 [facility] REASON FOR VISIT (unrecogniz ed section and content) Reason Onset Date Comments Med Refill 06/06/2023 Care Teams (unrecognized sec tion and content) Team Status: Active Member Role Status Dates Lalita Westbrook DO Primary Care Provider Active Team Status: Inactive Member Role Status Dates Stephen Wilkins MD Attending Provider Active Lalita Westbrook DO Primary Care Provider Active Surgical Product Sales Consultant Relationship Specialty Start Date End Date Lalita Westbrook DO [address] [place] [address] PCP - General Family Medicine 11/26/19 FOR [...] BE BASED ON THE PRIMARY CLINICAL RECORDS. [employer] provides no warranty or guarantee of the accuracy or completeness of information in this document.
== END 2023-07-24 09:00 | disposition home or self-care (01) ==
LOC: VC 08:59
PROVIDERS: PCP Radiology Diagnostic Radiology; Visit Provider Radiology Diagnostic Radiology
DX: I83.813 Varicose veins of bilateral lower extremities with pain (principal)
CPT/HCPCS: 36466

== ENCOUNTER 2023-07-31 10:02 | Outpatient (OUT) | payer MEDICARE, SELFPAY ==
--- NOTE | 2023-07-31 10:05 | VEIN_ITS ---
Patient Name: KATIANA MARISCAL MR#: [id number] : 1965 Exam Date: 07/31/2023 Ordering Doctor: DR FRANCISCO WHITAKER M.D. RADIOLOGY REPORT PROCEDURE: VC EXT VENOUS RT LMTD COMPARISON: VC EXT VENOUS RT LMTD, 07/03/2023. INDICATIONS: I80.01 Phlebitis of superficial veins of right lower extremity TECHNIQUE: Lower extremity marcum scale and Duplex Doppler evaluation of the deep venous system from the inguinal ligament through the calf veins. FINDINGS: REGION: Right lower extremity. THROMBI: Negative for DVT. Chemically induced thrombus in multiple varicose veins in medial right lower leg. COMPRESSIBILITY: Non-compressible segments corresponding to thrombus FLOW: Areas of no flow corresponding to thrombus OTHER: Multiple patent varicose veins remain. Proximal lateral lower leg varicosity measures 5.9 mm. Proximal medial calf varicose vein measures 7.5 mm. CONCLUSION: Post ablation occlusion of the treated right leg incompetent varicose veins. Residual varicose veins measuring up to 7.5 mm Dictated by: Francisco Whitaker MD on 07/31/2023 at 10:25 Approved by: Francisco Whitaker MD on 07/31/2023 at 10:26
--- NOTE | 2023-07-31 10:05 | VEIN_ITS ---
Patient Name: KATIANA MARISCAL MR#: [id number] : 1965 Exam Date: 07/31/2023 Ordering Doctor: DR FRANCISCO WHITAKER M.D. RADIOLOGY REPORT PROCEDURE: [facility] EST [facility] - OFFICE VISIT FOLLOW UP COMPARISON: [facility] EST LMTD, 07/17/2023. [facility] EST LMTD, 07/03/2023. PROGRESS NOTES: The patient reports moderate pain of the right leg following micro foam chemical ablation of incompetent varicose veins. The patient has not taken any oral analgesics. The patient has worn her thigh-high compression stocking as directed. The patient has tried exercise within the limits of her physical capacity Physical exam demonstrates multiple thrombosed varicose veins corresponding to the patient's pain most significant along the medial aspect of the right lower leg beneath the knee. Multiple patent varicose veins are observed. No erythema or warmth to suggest cellulitis or thrombophlebitis. No active ulceration Review of the ultrasound performed the same day demonstrates occlusive thrombus extending throughout the treated right leg varicose veins with residual incompetent varicose veins measuring to 7.5 mm. No deep vein thrombus The patient expressed a desire to proceed with treatment of incompetent left leg varicose veins with micro foam chemical ablation. VEIN/[facility] EST LMTD IMPRESSION: 1. Successful ablation of treated incompetent right leg varicose veins. 2. Persistent bilateral incompetent varicose veins. PLAN: Micro foam chemical ablation left leg incompetent varicose veins Nurse notes, history and physical were reviewed and confirmed, see attached forms. The nurse was present throughout the physical exam and consultation Dictated by: Francisco Whitaker MD on 07/31/2023 at 11:24 Approved by: Francisco Whitaker MD on 07/31/2023 at 11:25
--- OUTSIDE RECORDS SUMMARY | 2023-07-31 10:14 | XMS_ITS | CCD ---
Author Name Unknown Address [address] [place] [address] Organization [facility] Care Team Providers Care Plastics Scientist Name Role Phone JERICHO QURESHI JR Attending Unavailable JERICHO QURESHI JR Consulting Unavailable JERICHO QURESHI JR Admitting Unavailable [facility] Primary Care Unava ilCHELSEA Monroe Consulting Unavailable Jericho Qureshi Unavailable Nicholas Arteaga Unavailable MD Stephen Wilkins Attending Provider [phone] DO Lalita Westbrook Primary Care Provider Stephen [...] Active Start: 01-17-2023 take 1 capsule by [facility] once daily Omeprazole 40 MG 1 capsule 30 minutes before morning meal Orally Once a day for 30 days Jan, Active take 1 capsule by [facility] every twenty-four hours Omeprazole 20 MG [...] 07-20-2021 Episodic Other aftercare (1 source) Other jail (current) drug therapy; Translations: [OTH [facility] CURRENT DRUG THERAPY] Onset: 06-04-2020 Episodic Other [...] 06-24-2023 Albumin [Mass/Vol] 4.0 g/dL Normal 3.2-5.3 [facility] Comment on above: Performed By: #### C MP #### [facility] ([id number]) [address], [address] [place] [address] ALP [Catalytic activity/Vol] 92 U/L Normal 39-130 [facility] Comment on above: Performed By: #### C MP #### [facility] ([id number]) [address], [address] [place] [address] ALT [Catalytic activity/Vol] 23 U/L Normal 0-31 [facility] Comment on above: Performed By: #### C MP #### [facility] ([id number]) [address], [address] [place] [address] Anion gap [Moles/Vol] 9 mmol/L Normal 5-15 [facility] Comment on above: Performed By: #### C MP #### [facility] ([id number]) [address], [address] [place] [address] AST [Catalytic activity/Vol] 24 U/L Normal 0-41 [facility] Comment on above: Performed By: #### C MP #### [facility] ([id number]) [address], [address] [place] [address] Bilirubin [Mass/Vol] 1.0 mg/dL Normal 0.3-1.2 [facility] Comment on above: Performed By: #### C MP #### [facility] ([id number]) [address], [address] [place] [address] Calcium [Mass/Vol] 9.0 mg/dL Normal 8.5-10.5 [facility] Comment on above: Performed By: #### C MP #### [facility] ([id number]) [address], [address] [place] [address] Chloride [Moles/Vol] 103 mmol/L Normal 98-109 [facility] Comment on above: Performed By: #### C MP #### [facility] ([id number]) [address], [address] [place] [address] CO2 [Moles/Vol] 27 mmol/L Normal 22-32 [facility] Comment on above: Performed By: #### C MP #### [facility] ([id number]) [address] [address] [place] [address] Creatinine [Mass/Vol] 0.53 mg/dL Normal 0.40-1.00 [facility] Comment on above: Result Comment: METH OD TRACEABLE TO IDMS STANDARD Performed By: #### C MP #### [facility] ([id number]) [address], [address] [place] [address] eGFR (CKD-EPI) NON-RACE DEPENDENT >90 Normal >59 [facility] Comment on above: Result Comment: Reported eGFR is based on the CKD-EPI 2020 equation that does not use a race coefficient. Performed By: #### C MP #### [facility] ([id number]) [address], [address] [place] [address] Glucose [Mass/Vol] 170 mg/dL High 65-99 [facility] Comment on above: Performed By: #### C MP #### [facility] ([id number]) [address] [place] [address] Potassium [Moles/Vol] 4.2 mmol/L Normal 3.5-5.0 [facility] Comment on above: Performed By: #### C MP #### [facility] ([id number]) [address] [place] [address] Protein [Mass/Vol] 7.2 g/dL Normal 6.0-8.0 [facility] Comment on above: Performed By: #### C MP #### [facility] ([id number]) [address], [address] [place] [address] Sodium [Moles/Vol] 139 mmol/L Normal 134-146 [facility] Comment on above: Performed By: #### C MP #### [facility] ([id number]) [address], [address] [place] [address] Urea nitrogen [Mass/Vol] 15 mg/dL Normal 5-23 [facility] Comment on above: Performed By: #### C MP #### [facility] ([id number]) [address], [address] [place] [address] HGB A1C (GLYCO-HGB)on 2023 Glucose [Mass/Vol] 186 mg/dL Normal [facility] Comment on above: Performed By: #### C MP #### [facility] ([id number]) [address], [address] [place] [address] HbA1c (Bld) [Mass fraction] 8.1 % High 4.4-5.6 [facility] Comment on above: Result Comment: NOTE ADA Guidelines Result HgbA1c Normal : less than 5.7 % Prediabetes : 5.7 % to 6.4 % Diabetes : > 6.4 % Use with caution in patients with abnormal hemoglobin variants as the half-life of red blood cells and in vivo glycation rates are affected. Performed By: #### C MP #### [facility] ([id number]) [address], [address] [place] [address] Vital Signs Date Time Vital Sign Value Performing Clinician Jacque alcala 02-21-2023 06:46-0400 Body height 156.21 cm DO [employer] Work Phone: [facility] 02-21-2023 06:46-0400 Body weight 74.84 kg DO Lalita Westbrook Work Phone: [facility] 01-17-2023 11:00-0400 Body height 154.94 cm Nicholas Jasmyneclover Other [facility] Other 01-17-2023 11:00-0400 Body mass index (BMI) [Ratio] 49.5 kg/m2 Nicholas Arteaga Other [facility] Other 01-17-2023 11:00-0400 Body weight 118.84 kg Nicholas Anneanisha Other [facility] Other 01-17-2023 11:00-0400 Diastolic blood pressure 81 mm[Hg] Nicholas Arteaga Other [facility] Other 01-17-2023 11:00-0400 Systolic blood pressure 155 mm[Hg] Nicholas Arteaga Other [facility] Other 07-20-2021 14:45-0500 Body weight 114.76 kg Jericho Qureshi Other [facility] Other Encounters Encounter Date Encounter Type Care Provider Facility Start: 06-24-2023 End: 06-25-2023 ambulatory LALITA WESTBROOK [facility] Start: 06-23-2023 End: 06-24-2023 ambulatory LALITA WESTBROOK [facility] Start: 06-22-2023 End: 06-23-2023 ambulatory TRINA DANIEL [facility] Start: 06-19-2023 End: 06-19-2023 [facility]: 06-06-2023 Niya Gutierrez RN [facility] Start: 02-21-2023 End: 02-21-2023 ambulatory Stephen Wilkins Facility:[facility] Start: 02-21-2023 End: 02-21-2023 ambulatory DO Lalita Rumschlag Work Phone: [facility] Work Phone: Start: 02-21-2023 End: 02-21-2023 Patient encounter procedure DO Lalita Rumschlag Work Phone: [facility] Work Phone: Start: 01-17-2023 End: 01-17-2023 ambulatory Nicholas Arteaga Other [facility] Other Start: 01-17-2023 [facility] visit new patient Nicholas Arteaga [facility] Start: 07-20-2021 End: 07-20-2021 ambulatory Jericho Qureshi Other [facility] Other Start: 07-20-2021 Office outpatient visit 25 minutes Jericho Qureshi [facility] Start: 06-03-2020 End: 06-03-2020 ambulatory JERICHO QURESHI Facility:[facility]1 Procedures Date Procedure Procedure Detail Performing Clinician Start: 02-21-2023 Esophageal manometry DO Lalita Rumschlag Work Phone: Plan of Treatment Date Care Activity Detail Author Start: 03-22-2024 Tobacco Screening Tobacco Screening [facility] Start: 02-09-2024 Adult BMI Screening Adult BMI Screening [facility] Start: 09-20-2023 End: 09-20-2023 Patient encounter procedure 09/20/2023 2:00 PM EDT Office Visit [facility] [address] [place] [id number] Sia Grider, PASoledadC [address] [place] [address] [facility] Start: 02-21-2023 [facility] Start: 01-13-2023 COVID-19 Vaccine ( season) COVID-19 Vaccine ( season) [facility] Start: 01-13-2023 Influenza vaccination Influenza Vaccine [facility] Start: 2013 Administration of varicella zoster vaccine Zoster (Shingles) Vaccine (1 of 2) [facility] Start: 1984 Screening for malignant neoplasm of cervix Pap Smear [facility] Start: 1982 DTaP,Tdap and Td Vaccines (1 - Tdap) DTaP,Tdap and Td Vaccines (1 - Tdap) [facility] Start: 1981 Adult BMI Follow Up Plan Adult BMI Follow Up Plan [facility] Start: 1975 Depression Screening Depression Screening [facility] Immunizations Immunization Date Immunization Notes Care Provider Fa cility 07-22-2020 COVID-19 Vaccine, vector-nr, rS-Ad26, PF, 0.5mL Pauly Gutierrez RN [facility] 03-11-2020 influenza virus vaccine, unspecified formulation Pauly Gutierrez RN [facility] Payers Date Payer Category Payer Medicare [id number] 2023 Medicare [id number] 2023 Self-pay 2022 Medicare MEDICARE MEDICAR E PART A & B [id number] 2022-Present [phone] [address] [place] [address] [id number] 1965 Unknown [id number] 1965 Unknown [id number] 1965 Unknown [id number] 1965 Unknown [id number] 1965 Unknown [id number] 1959 Unknown [id number] Medicaid [id number] Unknown [id number] Social History Date Type Detail Facility Start: 05-29-2020 End: 03-22-2023 Sex Assigned At [facility] Other Start: 1965 Sex Assigned At Female F [facility] Start: 03-30-2022 [facility] Start: 03-30-2022 Tobacco use and exposure Smokeless tobacco non-user [facility] Start: 03-22-2023 Alcohol intake Current drinke r of alcohol (finding) [facility] Start: 05-29-2020 End: 03-22-2023 History of Social function [facility] Childcare Unknown [facility] Start: 03-01-2017 Alcohol Comment occasional [facility] Start: 1965 Sex Assigned At Not on file P [facility] System Goals Date Patient Goal Desired Activity [...] has been effective. documented in this encounter [facility] Telephone encounter Note 06-06-2023 Telephone Encounter [...] that the daily does has been effective. [facility] Evaluation note 01-17-2023 Note Date & [...] describes a poking pain in her chest. [facility] Other Evaluation note 07-20-2021 Note Date & Type Note Facility 07-20-2021 Evaluation note Encounter Date Diagnosis Assessment Notes Jul, GERD (gastroesopha geal reflux disease) (ICD-10 - K21.9) Jul, Abdominal pain (ICD-10 - R10.9) severe sharp pain imaging ordered and medication started Jul, Black stools (ICD-10 - K92.1) [facility] Other Clinical Note 06-03-2020 Note Date & [...] in 5 years based on family history. [facility] Signed and Approved by: JERICHO QURESHI JR 06/10/2020 11:26:00 [facility] Evaluation note Note Date & Type Note Facility Evaluation note No assessment information [facility] Work Phone: History general Narrative - Reported Note Date & Type Note Facility History general Narrative - Reported Type Medical History GERD Medical History esophageal spasm Surgical History appendectomy Surgical History C section [facility] Other History general Narrative - Reported Note Date & Type Note Facility History general Narrative - Reported Type Medical History GERD Medical History esophageal spasm Surgical History appendectomy Surgical History C section Surgical History ablasion-righ and left knee Hospitalization History see above [facility] Other Instructions Note Date & Type Note [...] DATE CREATED AUTHOR AUTHOR'S ORGANIZ ATION 03/19/[address] [facility] DATE CREATED AUTHOR AUTHOR'S ORGANIZ ATION 06/26/2023 [facility] REASON FOR VISIT (unrecogniz ed section and content) Reason Onset Date Comments Med Refill 06/06/2023 Care Teams (unrecognized sec tion and content) Team Status: Active Member Role Status Dates Lalita Westbrook DO Primary Care Provider Active Team Status: Inactive Member Role Status Dates Stephen Wilkins MD Attending Provider Active Lalita Westbrook DO Primary Care Provider Active Plastics Scientist Relationship Specialty Start Date End Date Lalita Westbrook DO [address] [place] [address] PCP - General Family Medicine 11/26/19 FOR [...] BE BASED ON THE PRIMARY CLINICAL RECORDS. [employer] provides no warranty or guarantee of the accuracy or completeness of information in this document.
== END 2023-07-31 10:03 | disposition home or self-care (01) ==
LOC: VC 10:03
PROVIDERS: PCP Radiology Diagnostic Radiology; Visit Provider Radiology Diagnostic Radiology
DX: I80.01 Phlebitis and thrombophlebitis of superficial vessels of right lower extremity (principal)
CPT/HCPCS: 93971; G0463

== ENCOUNTER 2023-08-07 10:55 | Outpatient (OUT) | payer MEDICARE, SELFPAY ==
--- NOTE | 2023-08-07 10:59 | VEIN_ITS ---
[address] [address] Patient Name: KATIANA MARISCAL MRN: [id number] date: 1965 Sex: F Assigned Patient Location: Current Patient Location: Accession/Order Number: [id number] Exam Date: 08/07/2023 11:00 Report Date: 08/07/2023 11:54 At the request of: JERICHO MAS Procedure: VC INJ Foam Sclerosant WUS PIPE SMOKING MACHINE OFFBEARER PROCEDURE: VC INJ Foam Sclerosant WUS PIPE SMOKING MACHINE OFFBEARER COMPARISON: None. HISTORY: Pain due to varicose veins of bilateral legs I83.813 Pre-operative Diagnosis: CEAP class C3 venous insufficiency with pain, tenderness, edema and incompetent left great saphenous and varicose vein(s), chronic venous insufficiency left leg secondary to venous incompetence Post-operative Diagnosis: CEAP class C3 venous insufficiency with pain, tenderness, edema and incompetent left great saphenous and varicose vein(s), chronic venous insufficiency left leg secondary to venous incompetence Procedure Performed: 1. Ultrasound-guided microfoam chemical ablation with Varithenaregistered 2. Intraoperative ultrasound guidance Anesthesia: None Indications for Procedure: 58-year-old female who presents with a long history of lower extremity pain and swelling with extensive varicosities. The patient failed conservative medical therapy including medical compression stockings, exercise and analgesics. Prior procedures include endovenous laser ablation. Multiple incompetent varicosities of the left leg. Duplex scan showed reflux and enlarged diameters up to 8 mm. The patient underwent informed consent including management options where the complications of infection, bleeding, pain, and skin injury were discussed. Particular attention was spent discussing thrombus extension and deep vein thrombosis as well as the possibility of pulmonary embolus and treatment with oral or injectable blood thinners. Procedure: The patient walked to the procedure room. All applicable staff donned appropriate apparel. A procedure timeout was performed to confirm correct patient, correct extremity, correct procedure, and correct room set-up including presence of all applicable supplies, devices, and drugs. A duplex ultrasound, performed by myself confirmed the location and incompetence of branch saphenous varicosities and their course was marked on the skin together with the dilated tributaries. The extent of treatment of the vein and the associated varicosities was determined through ultrasound mapping. The skin was prepped and then punctured with a butterfly needle and advanced under ultrasound guidance. The Varithenaregistered canister was activated and the canister was primed and purged as required in the instructions for use. Varithenaregistered was drawn into a sterile syringe. The following injections were made: 7 cc injected into a 6 mm varicose vein left distal anterior lower leg just above the ankle. An adjacent perforating vein was occluded with manual pressure until dissipation of the foam was observed by ultrasound 8 cc injected into a 8 mm varicose vein left proximal medial lower leg Varithenaregistered was slowly administered at 0.5-1.0 cc/second with close observation by ultrasound of its course in the vessels. Total volume utilized was: 15cc. Following administration of Varithenaregistered the leg was elevated and the patient was asked to repeatedly dorsiflex the ankle to limit flow of Varithenaregistered into perforating veins. Once appropriate spasm had been confirmed in the treated veins, the vascular catheter was removed from the leg and light pressure was applied over the puncture site for hemostasis. The common femoral and deep superficial veins were then evaluated for flow and compressibility prior to dressing placement. The lower extremity was kept elevated at 45 degrees above the horizontal and cording material was applied over the saphenous segments and tributaries to allow for eccentric compression over the target vessels including the targeted saphenous vein(s). A multilayer dressing was applied consisting of foam pads, coban and thigh-high 20-30 mm Hg compression elastic support hose were placed on the patient. The leg was lowered only after compression had been applied and the patient was immediately ambulatory. The patient ambulated 10 minutes under supervision and was without apparent concerns at time of release. Post-care instructions include advising patient to keep post-treatment bandages in place and dry for 48 hours, avoid extended periods of inactivity, avoid heavy exercise for one week, wear compression stockings on the treated leg continuously for two weeks, to walk daily for 10 minutes over the next month. The patient was instructed to take an anti-inflammatory medicine as needed and to follow up for color duplex scan of the Saphenous veins, the treated branch saphenous varicosities, the adjacent deep veins, and additional treatment within 7 days. PERSONNEL: Mello Ko RN Electronically authenticated by: JERICHO MAS Date: 08/07/2023 11:54
== END 2023-08-07 10:56 | disposition home or self-care (01) ==
LOC: VC 10:55
PROVIDERS: PCP Radiology Diagnostic Radiology; Visit Provider Radiology Diagnostic Radiology
DX: I83.813 Varicose veins of bilateral lower extremities with pain (principal)
CPT/HCPCS: 36466

== ENCOUNTER 2023-08-14 11:26 | Outpatient (OUT) | payer MEDICARE, SELFPAY ==
--- NOTE | 2023-08-14 11:28 | VEIN_ITS ---
Patient Name: KATIANA MARISCAL MR#: [id number] : 1965 Exam Date: 08/14/2023 Ordering Doctor: DR JERICHO MAS M.D. RADIOLOGY REPORT PROCEDURE: [facility] - OFFICE VISIT FOLLOW UP [facility] PROGRESS NOTES: The patient reports improvement in leg symptoms. There has been interval reduction in varicosities. The patient has followed our recommendations to walk 20-30 minutes once or twice per day since the procedure. Physical exam demonstrates decrease in varicosities of the leg. Persistent varicosities are identified along the legs bilaterally. Review of the ultrasound performed the same day demonstrates occlusive thrombus extending throughout the treated vein(s), see separate report, consistent with a successful ablation. No thrombus extending into or beyond the saphenofemoral junction. The patient expressed a desire to proceed with treatment of remaining incompetent varicosities. The patient was informed that treatment was a process and would require approximately 3 procedures/sessions. [facility]: 1. Successful ablation of the left leg treated branch saphenous vein(s). 2. Persistent bilateral varicose veins and lower extremity symptoms. PLAN: 1. Microfoam chemical ablation of right leg incompetent branch saphenous varicosities. Nurse notes, history and physical were reviewed and confirmed, see attached forms. The nurse was present throughout the physical exam and consultation Dictated by: Graham Sampson M.D. on 08/14/2023 at 12:06 Approved by: Graham Sampson M.D. on 08/14/2023 at 12:07
--- NOTE | 2023-08-14 11:28 | VEIN_ITS ---
Patient Name: KATIANA MARISCAL MR#: [id number] : 1965 Exam Date: 08/14/2023 Ordering Doctor: DR JERICHO MAS M.D. RADIOLOGY REPORT PROCEDURE: VC EXT VENOUS LT LIMITED COMPARISON: VC EXT VENOUS LT LIMITED, 07/17/2023. INDICATIONS: Phlebitis of superficial vein of right lower extremity I80.01 TECHNIQUE: Lower extremity marcum scale and Duplex Doppler evaluation of the deep venous system from the inguinal ligament through the calf veins. FINDINGS: REGION: Left lower extremity. THROMBI: Negative for DVT. Chemically induced thrombus in multiple veins in left leg. COMPRESSIBILITY: Non-compressible segments corresponding to thrombus FLOW: Areas of no flow corresponding to thrombus OTHER: Patent varicose vein proximal medial calf measures 7.8 mm. Patent varicose vein proximal/lateral lower leg measures 4.5mm. CONCLUSION: 1. Successful post ablation occlusion of left leg treated branch saphenous varicosities. Dictated by: Graham Sampson M.D. on 08/14/2023 at 11:59 Approved by: Graham Sampson M.D. on 08/14/2023 at 12:06
== END 2023-08-14 11:27 | disposition home or self-care (01) ==
LOC: VC 11:26
PROVIDERS: PCP Radiology Diagnostic Radiology; Visit Provider Radiology Diagnostic Radiology
DX: I80.02 Phlebitis and thrombophlebitis of superficial vessels of left lower extremity (principal)
CPT/HCPCS: 93971; G0463

== ENCOUNTER 2023-08-22 07:54 | Outpatient (OUT) | payer MEDICARE, SELFPAY ==
--- OUTSIDE RECORDS SUMMARY | 2023-08-22 07:57 | XMS_ITS | CCD ---
Author Organization [facility] Care Team Providers Care [employer] Name Role Phone JERICHO QURESHI JR Attending Unavailable JERICHO QURESHI JR Consulting Unavailable JERICHO QURESHI JR Admitting Unavailable [facility] Primary Care Unava ilable CHELSEA LEAVITT Consulting Unavailable Jericho Qureshi Unavailable Nicholas Arteaga Unavailable MD Stephen Wilkins Attending Provider Noelle, DO Lalita Primary Care Provider Stephen Wilkins Admitting Unavailabl e Stephen Wilkins Attending Unavailabl e Rumschlag, Lalita Primary Care Unavailable Rumschlag DO, Lalita K Primary Care Provider RUMSCHLAG, LALITA K Primary Care Unavailable TRINA DANIEL [...] 01-17-2023 take 1 capsule by [facility] once daily Omeprazole 40 MG 1 capsule 30 minutes before morning meal Orally Once a day for 30 days Jan, Active take 1 capsule by [facility] every twenty-four hours Omeprazole 20 MG 1 [...] 07-20-2021 Episodic Other aftercare (1 source) 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; Translations: [OTH JAIL CURRENT DRUG THERAPY] Onset: 06-04-2020 Episodic Other [...] 06-24-2023 Albumin [Mass/Vol] 4.0 g/dL Normal 3.2-5.3 [facility] Comment on above: Performed By: #### C MP #### [facility] ([id number]) [address], [address] [place] [address] ALP [Catalytic activity/Vol] 92 U/L Normal 39-130 [facility] Comment on above: Performed By: #### C MP #### [facility] ([id number]) [address], [address] [place] [address] ALT [Catalytic activity/Vol] 23 U/L Normal 0-31 [facility] Comment on above: Performed By: #### C MP #### [facility] ([id number]) [address], [address] [place] [address] Anion gap [Moles/Vol] 9 mmol/L Normal 5-15 [facility] Comment on above: Performed By: #### C MP #### [facility] ([id number]) [address], [address] [place] [address] AST [Catalytic activity/Vol] 24 U/L Normal 0-41 [facility] Comment on above: Performed By: #### C MP #### [facility] ([id number]) [address], [address] [place] [address] Bilirubin [Mass/Vol] 1.0 mg/dL Normal 0.3-1.2 [facility] Comment on above: Performed By: #### C MP #### [facility] ([id number]) [address], [address] [place] [address] Calcium [Mass/Vol] 9.0 mg/dL Normal 8.5-10.5 [facility] Comment on above: Performed By: #### C MP #### [facility] ([id number]) [address], [address] [place] [address] Chloride [Moles/Vol] 103 mmol/L Normal 98-109 [facility] Comment on above: Performed By: #### C MP #### [facility] ([id number]) [address], [address] [place] [address] CO2 [Moles/Vol] 27 mmol/L Normal 22-32 [facility] Comment on above: Performed By: #### C MP #### [facility] ([id number]) [address], [address] [place] [address] Creatinine [Mass/Vol] 0.53 mg/dL Normal 0.40-1.00 [facility] Comment on above: Result Comment: METH OD TRACEABLE TO IDMS STANDARD Performed By: #### C MP #### [facility] ([id number]) [address], [address] [place] [address] eGFR (CKD-EPI) NON-RACE DEPENDENT >90 Normal >59 [facility] Comment on above: Result Comment: Reported eGFR is based on the CKD-EPI 2020 equation that does not use a race coefficient. Performed By: #### C MP #### [facility] ([id number]) [address], [address] [place] [address] Glucose [Mass/Vol] 170 mg/dL High 65-99 [facility] Comment on above: Performed By: #### C MP #### [facility] ([id number]) [address], [address] [place] [address] Potassium [Moles/Vol] 4.2 mmol/L Normal 3.5-5.0 [facility] Comment on above: Performed By: #### C MP #### [facility] ([id number]) [address], [address] [place] [address] Protein [Mass/Vol] 7.2 g/dL Normal 6.0-8.0 [facility] Comment on above: Performed By: #### C MP #### [facility] ([id number]) [address], [address] [place] [address] Sodium [Moles/Vol] 139 mmol/L Normal 134-146 [facility] Comment on above: Performed By: #### C MP #### [facility] ([id number]) [address] [facility] [address] [place] [address] Urea nitrogen [Mass/Vol] 15 mg/dL Normal 5-23 [facility] Comment on above: Performed By: #### C MP #### [facility] ([id number]) [address] [facility] [facility] [address] [place] [address] HGB A1C (GLYCO-HGB)on 2023 Glucose [Mass/Vol] 186 mg/dL Normal [facility] Comment on above: Performed By: #### C MP #### [facility] ([id number]) [facility] [address] [place] [address] HbA1c (Bld) [Mass fraction] 8.1 % High 4.4-5.6 [facility] Comment on above: Result Comment: NOTE ADA Guidelines Result HgbA1c Normal : less than 5.7 % Prediabetes : 5.7 % to 6.4 % Diabetes : > 6.4 % Use with caution in patients with abnormal hemoglobin variants as the half-life of red blood cells and in vivo glycation rates are affected. Performed By: #### C MP #### [facility] ([id number]) [address] [facility] [address] [place] [address] Vital Signs Date Time Vital Sign Value Performing Clinician Jacque alcala 02-21-2023 06:46-0400 Body height 156.21 cm DO Lalita Rumschlag Work Phone: [facility] 02-21-2023 06:46-0400 Body weight 74.84 kg DO Lalita Rumschlag Work Phone: [facility] 01-17-2023 11:00-0400 Body height 154.94 cm Nicholas Anneanisha Other [employer] Other 01-17-2023 11:00-0400 Body mass index (BMI) [Ratio] 49.5 kg/m2 Nicholas Anneanisha Other [employer] Other 01-17-2023 11:00-0400 Body weight 118.84 kg Nicholas Arteaga Other [employer] Other 01-17-2023 11:00-0400 Diastolic blood pressure 81 mm[Hg] Nicholas Jasmyneclover Other [employer] Other 01-17-2023 11:00-0400 Systolic blood pressure 155 mm[Hg] Nicholas Dayanaanisha Other [employer] Other 07-20-2021 14:45-0500 Body weight 114.76 kg Jericho Qureshi Other [employer] Other Encounters Encounter Date Encounter Type Care Provider Facility Start: 06-24-2023 End: 06-25-2023 ambulatory LALITA WESTBROOK [facility] Start: 06-23-2023 End: 06-24-2023 ambulatory ALLITA WESTBROOK [facility] Start: 06-22-2023 End: 06-23-2023 ambulatory TRINA DANIEL [facility] Start: 06-19-2023 End: 06-19-2023 [facility] Start: 06-06-2023 Niya Gutierrez RN [facility] Start: 02-21-2023 End: 02-21-2023 ambulatory Stephen Wilkins Facility:[facility] Start: 02-21-2023 End: 02-21-2023 ambulatory DO Lalita Rumschlag Work Phone: [facility] Work Phone: Start: 02-21-2023 End: 02-21-2023 Patient encounter procedure DO Lalita Rumschlag Work Phone: [facility] Work Phone: Start: 01-17-2023 End: 01-17-2023 ambulatory Nicholas Arteaga Other [employer] Other Start: 01-17-2023 [facility] visit new patient Nicholas Arteaga [facility] Start: 07-20-2021 End: 07-20-2021 ambulatory Jericho Qureshi Other [employer] Other Start: 07-20-2021 Office outpatient visit 25 minutes Jericho [facility] Start: 06-03-2020 End: 06-03-2020 ambulatory JERICHO QURESHI Facility: Procedures Date Procedure Procedure Detail Performing Clinician Start: 02-21-2023 Esophageal manometry DO Lalita Rumschlag Work Phone: Plan of Treatment Date Care Activity Detail Author Start: 03-22-2024 Tobacco Screening Tobacco Screening [facility] Start: 02-09-2024 Adult BMI Screening Adult BMI Screening [facility] Start: 09-20-2023 End: 09-20-2023 Patient encounter procedure 09/20/2023 2:00 PM EDT Office Visit [facility] [address] [id number] Sia Grider, PASoledadC [address] [place] [address] [facility] Start: 02-21-2023 [facility] Start: 01-13-2023 COVID-19 Vaccine ( season) COVID-19 Vaccine ( season) [facility] Start: 01-13-2023 Influenza vaccination Influenza Vaccine [facility] Start: 2013 Administration of varicella zoster vaccine Zoster (Shingles) Vaccine (1 of 2) [facility] Start: 1984 Screening for malignant neoplasm of cervix Pap Smear [facility] Start: 1982 DTaP,Tdap and Td Vaccines (1 - Tdap) DTaP,Tdap and Td Vaccines (1 - Tdap) [facility] Start: 1981 Adult BMI Follow Up Plan Adult BMI Follow Up Plan [facility] Start: 1975 Depression Screening Depression Screening [facility] Immunizations Immunization Date Immunization Notes Care Provider Fa cility 07-22-2020 COVID-19 Vaccine, vector-nr, rS-Ad26, PF, 0.5mL Pauly Gutierrez RN [facility] 03-11-2020 influenza virus vaccine, unspecified formulation Pauly Gutierrez RN [facility] Payers Date Payer Category Payer Medicare [id number] 2023 Medicare [id number] 2023 Self-pay 2022 Medicare MEDICARE MEDICAR E PART A & B [id number] 2022-Present [phone] [address] [place] [address] [id number] 1965 Unknown [id number] 1965 Unknown [id number] 1965 Unknown [id number] 1965 Unknown [id number] 1965 Unknown [id number] 1959 Unknown [id number] Medicaid [id number] Unknown [id number] Social History Date Type Detail Facility Start: 05-29-2020 End: 03-22-2023 Sex Assigned At [facility] [employer] Other Start: 1965 Sex Assigned At Female F [facility] Start: 03-30-2022 Tobacco smoking stat [facility] Never smoked tobacco [facility] Start: 03-30-2022 Tobacco use and exposure Smokeless tobacco non-user [facility] Start: 03-22-2023 Alcohol intake Current drinke r of alcohol (finding) [facility] Start: 05-29-2020 End: 03-22-2023 History of Social function [facility] Childcare Unknown [facility] Start: 03-01-2017 Alcohol Comment [facility] Start: 1965 Sex Assigned At Not on file P [facility] Goals Date Patient Goal Desired [...] has been effective. documented in this encounter [facility] [employer] Telephone encounter Note 06-06-2023 Telephone Encounter [...] that the daily does has been effective. [facility] Evaluation note 01-17-2023 Note Date & [...] describes a poking pain in her chest. [employer] Other Evaluation note 07-20-2021 Note Date & Type Note Facility 07-20-2021 Evaluation note Encounter Date Diagnosis Assessment Notes Jul, GERD (gastroesopha geal reflux disease) (ICD-10 - K21.9) Jul, Abdominal pain (ICD-10 - R10.9) severe sharp pain imaging ordered and medication started Jul, Black stools (ICD-10 - K92.1) [employer] Other Clinical Note 06-03-2020 Note Date & [...] by: JERICHO QURESHI JR 06/10/2020 11:26:00 [facility] Evaluation note Note Date & Type Note Facility Evaluation note No assessment information [facility] Work Phone: History general Narrative - Reported Note Date & Type Note Facility History general Narrative - Reported Type Medical History GERD Medical History esophageal spasm Surgical History appendectomy Surgical History C section [employer] Other History general Narrative - Reported Note Date & Type Note Facility History general Narrative - Reported Type Medical History GERD Medical History esophageal spasm Surgical History appendectomy Surgical History C section Surgical History ablasion-righ and left knee Hospitalization History see above [employer] Other Instructions Note Date & Type Note [...] content) DATE CREATED AUTHOR 09/11/2020 [facility] DATE CREATED AUTHOR AUTHOR'S ORGANIZ ATION 03/19/2023 [facility] DATE CREATED AUTHOR AUTHOR'S ORGANIZ ATION 06/26/2023 [facility] REASON FOR VISIT (unrecogniz ed section and content) Reason Onset Date Comments Med Refill 06/06/2023 Care Teams (unrecognized sec tion and content) Team Status: Active Member Role Status Dates Lalita Westbrook DO Primary Care Provider Active Team Status: Inactive Member Role Status Dates Stephen Wilkins MD Attending Provider Active Lalita Westbrook DO Primary Care Provider Active [employer] Relationship Specialty Start Date End Date Lalita Westbrook DO [address] [place] [address] PCP - General Family Medicine 11/26/19 FOR [...] BE BASED ON THE PRIMARY CLINICAL RECORDS. [facility] [employer] [facility]. provides no warranty or guarantee of the accuracy or completeness of information in this document.
--- NOTE | 2023-08-22 07:58 | VEIN_ITS ---
[address] [address] Patient Name: KATIANA MARISCAL MRN: [id number] date: 1965 Sex: F Assigned Patient Location: Current Patient Location: Accession/Order Number: [id number] Exam Date: 08/22/2023 08:05 Report Date: 08/22/2023 10:20 At the request of: JERICHO MAS Procedure: VC INJ Foam Sclerosant WUS RECORD CHANGER TESTER PROCEDURE: VC INJ Foam Sclerosant WUS RECORD CHANGER TESTER COMPARISON: None. HISTORY: I83.813 Pain due to varicose veins of bilateral legs Pre-operative Diagnosis: CEAP class C3 venous insufficiency with pain, tenderness, edema and incompetent great saphenous and varicose vein(s), chronic venous insufficiency right leg secondary to venous incompetence Post-operative Diagnosis: CEAP class C3 venous insufficiency with pain, tenderness, edema and incompetent great saphenous and varicose vein(s), chronic venous insufficiency right leg secondary to venous incompetence Procedure Performed: 1. Ultrasound-guided microfoam chemical ablation with Varithenaregistered 2. Intraoperative ultrasound guidance Anesthesia: None Indications for Procedure: 58 year old female who presents with a long history of lower extremity varicose veins with swelling despite conservative medical therapy including medical compression stockings, exercise and analgesics. Prior procedures include endovenous laser ablation. Multiple incompetent varicosities of the right leg. Duplex scan showed reflux and enlarged diameters up to 8 mm. The patient underwent informed consent including management options where the complications of infection, bleeding, pain, and skin injury were discussed. Particular attention was spent discussing thrombus extension and deep vein thrombosis as well as the possibility of pulmonary embolus and treatment with oral or injectable blood thinners. Procedure: The patient walked to the procedure room. All applicable staff donned appropriate apparel. A procedure timeout was performed to confirm correct patient, correct extremity, correct procedure, and correct room set-up including presence of all applicable supplies, devices, and drugs. A duplex ultrasound, performed by myself confirmed the location and incompetence of branch saphenous varicosities and their course was marked on the skin together with the dilated tributaries. The extent of treatment of the vein and the associated varicosities was determined through ultrasound mapping. The skin was prepped and then punctured with a butterfly needle and advanced under ultrasound guidance. The following injections were made: 6 cc injected into 5 mm varicose vein right anterior mid lower leg 6 cc injected into a 4 mm varicose vein right anterior distal lower leg 3 cc injected through 8 mm varicose vein right lateral knee The Varithenaregistered canister was activated and the canister was primed and purged as required in the instructions for use. Varithenaregistered was drawn into a sterile syringe. Varithenaregistered was slowly administered at 0.5-1.0 cc/second with close observation by ultrasound of its course in the vessels. Total volume utilized was: 15cc. Following administration of Varithenaregistered the leg was elevated and the patient was asked to repeatedly dorsiflex the ankle to limit flow of Varithenaregistered into perforating veins. Once appropriate spasm had been confirmed in the treated veins, the vascular catheter was removed from the leg and light pressure was applied over the puncture site for hemostasis. The common femoral and deep superficial veins were then evaluated for flow and compressibility prior to dressing placement. The lower extremity was kept elevated at 45 degrees above the horizontal and cording material was applied over the saphenous segments and tributaries to allow for eccentric compression over the target vessels including the targeted saphenous vein(s). A multilayer dressing was applied consisting of foam pads, coban and thigh-high 20-30 mm Hg compression elastic support hose were placed on the patient. The leg was lowered only after compression had been applied and the patient was immediately ambulatory. The patient ambulated 10 minutes under supervision and was without apparent concerns at time of release. Post-care instructions include advising patient to keep post-treatment bandages in place and dry for 48 hours, avoid extended periods of inactivity, avoid heavy exercise for one week, wear compression stockings on the treated leg continuously for two weeks, to walk daily for 10 minutes over the next month. The patient was instructed to take an anti-inflammatory medicine as needed and to follow up for color duplex scan of the Saphenous veins, the treated branch saphenous varicosities, the adjacent deep veins, and additional treatment within 7 days. PERSONNEL: Gloria Humphries RN Electronically authenticated by: JERICHO MAS Date: 08/22/2023 10:20
== END 2023-08-22 07:55 | disposition home or self-care (01) ==
LOC: VC 07:54
PROVIDERS: PCP Radiology Diagnostic Radiology; Visit Provider Radiology Diagnostic Radiology
DX: I83.813 Varicose veins of bilateral lower extremities with pain (principal)
CPT/HCPCS: 36466

== ENCOUNTER 2023-08-28 12:31 | Outpatient (OUT) | payer MEDICARE, SELFPAY ==
--- NOTE | 2023-08-28 12:32 | VEIN_ITS ---
Patient Name: KATIANA MARISCAL MR#: [id number] : 1965 Exam Date: 08/28/2023 Ordering Doctor: DR FRANCISCO WHITAKER M.D. RADIOLOGY REPORT PROCEDURE: [facility] - OFFICE VISIT FOLLOW UP COMPARISON: [facility], 08/14/2023. [facility] EST [facility], 07/31/2023. PROGRESS NOTES: The patient reports no significant problems following micro foam chemical ablation of incompetent right leg varicose veins. The patient did wear her compression stocking. Patient has exercise as directed per the patient did Physical exam demonstrates multiple thrombosed right leg varicose veins. Bilateral incompetent patent varicose veins are observed Review of the ultrasound performed the same day demonstrates occlusive thrombus extending throughout the treated right leg varicose veins with no deep vein thrombus. Residual incompetent varicose veins 0.4 mm on the right. The patient expressed a desire to proceed with treatment of incompetent varicose veins with micro foam chemical ablation. VEIN/[facility] EST LMTD IMPRESSION: 1. Successful ablation of treated right incompetent varicose veins 2. Persistent bilateral incompetent patent varicose veins. PLAN: Micro foam chemical ablation left leg incompetent varicose veins Nurse notes, history and physical were reviewed and confirmed, see attached forms. The nurse was present throughout the physical exam and consultation Dictated by: Francisco Whitaker MD on 08/28/2023 at 13:03 Approved by: Francisco Whitaker MD on 08/28/2023 at 13:05
--- NOTE | 2023-08-28 12:32 | VEIN_ITS ---
Patient Name: KATIANA MARISCAL MR#: [id number] : 1965 Exam Date: 08/28/2023 Ordering Doctor: DR FRANCISCO WHITAKER M.D. RADIOLOGY REPORT PROCEDURE: VC EXT VENOUS RT LMTD COMPARISON: VC EXT VENOUS RT LMTD, 07/31/2023. VC EXT VENOUS RT LMTD, 07/03/2023. INDICATIONS: Phlebitis of superficial veins of right lower extremity I80.01 TECHNIQUE: Lower extremity marcum scale and Duplex Doppler evaluation of the deep venous system from the inguinal ligament through the calf veins. FINDINGS: REGION: Right lower extremity. THROMBI: Negative for DVT. Chemically induced thrombus in varicose veins in lower right leg. COMPRESSIBILITY: Non-compressible segments corresponding to thrombus FLOW: Areas of no flow corresponding to thrombus OTHER: Multiple large varicose veins remain. Proximal medial lower leg varicose vein measures 5.6 mm. Proximal lateral lower leg varicose vein measures 7.0 mm. Mid lateral thigh varicose vein measures 8.4 mm. CONCLUSION: Post ablation occlusion of treated right leg incompetent varicose veins with residual patent varicose veins measuring up to 8.4 mm. Dictated by: Francisco Whitaker MD on 08/28/2023 at 12:53 Approved by: Francisco Whitaker MD on 08/28/2023 at 12:53
--- OUTSIDE RECORDS SUMMARY | 2023-08-28 12:44 | XMS_ITS | CCD ---
Author Organization [facility] Care Team Providers Care Hand Or Machine Paster Name Role Phone JERICHO QURESHI JR Attending Unavailable JEIRCHO QURESHI JR Consulting Unavailable JERICHO QURESHI JR Admitting Unavailable [facility] Primary Care Unava ilable CHELSEA LEAVITT Consulting Unavailable Jericho Qureshi Unavailable Nicholas Arteaga Unavailable MD Stephen Wilkins Attending Provider [phone] Noelle, DO Lalita Primary Care Provider Stephen [...] Active Start: 01-17-2023 take 1 capsule by [facility] once daily Omeprazole 40 MG 1 capsule 30 minutes before morning meal Orally Once a day for 30 days Jan, Active take 1 capsule by [facility] every twenty-four hours Omeprazole 20 MG 1 [...] 07-20-2021 Episodic Other aftercare (1 source) 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; Translations: [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 DRUG THERAPY] Onset: 06-04-2020 Episodic Other [...] [Mass/Vol] 4.0 g/dL Normal 3.2-5.3 [facility] Comment on above: Performed By: #### C MP #### [facility] ([id number]) [address], [address] [place] [address] ALP [Catalytic activity/Vol] 92 U/L Normal 39-130 [facility] Comment on above: Performed By: #### C MP #### [facility] ([id number]) [address], [address] [place] [address] ALT [Catalytic activity/Vol] 23 U/L Normal 0-31 [facility] Comment on above: Performed By: #### C MP #### [facility] ([id number]) [address], [address] [place] [address] Anion gap [Moles/Vol] 9 mmol/L Normal 5-15 [facility] Comment on above: Performed By: #### C MP #### [facility] ([id number]) [address], [address] [place] [address] AST [Catalytic activity/Vol] 24 U/L Normal 0-41 [facility] Comment on above: Performed By: #### C MP #### [facility] ([id number]) [address], [address] [place] [address] Bilirubin [Mass/Vol] 1.0 mg/dL Normal 0.3-1.2 [facility] Comment on above: Performed By: #### C MP #### [facility] ([id number]) [address], [address] [place] [address] Calcium [Mass/Vol] 9.0 mg/dL Normal 8.5-10.5 [place] Comment on above: Performed By: #### C MP #### [facility] ([id number]) [address], [address] [place] [address] Chloride [Moles/Vol] 103 mmol/L Normal 98-109 [facility] Comment on above: Performed By: #### C MP #### [facility] ([id number]) [address], [address] [place] [address] CO2 [Moles/Vol] 27 mmol/L Normal 22-32 [facility] Comment on above: Performed By: #### C MP #### [facility] ([id number]) [address], [address] [place] [address] Creatinine [Mass/Vol] 0.53 mg/dL Normal 0.40-1.00 [facility] Comment on above: Result Comment: METH OD TRACEABLE TO IDMS STANDARD Performed By: #### C MP #### [facility] ([id number]) [address], [address] [place] [address] eGFR (CKD-EPI) NON-RACE DEPENDENT >90 Normal >59 [facility] Comment on above: Result Comment: Reported eGFR is based on the CKD-EPI 2020 equation that does not use a race coefficient. Performed By: #### C MP #### [facility] ([id number]) [address], [address] [place] [address] Glucose [Mass/Vol] 170 mg/dL High 65-99 [place] Comment on above: Performed By: #### C MP #### [facility] ([id number]) [address], [address] [place] [address] Potassium [Moles/Vol] 4.2 mmol/L Normal 3.5-5.0 [facility] Comment on above: Performed By: #### C MP #### [facility] ([id number]) [address], [address] [place] [address] Protein [Mass/Vol] 7.2 g/dL Normal 6.0-8.0 [place] Comment on above: Performed By: #### C MP #### [facility] ([id number]) [address], [address] [place] [address] Sodium [Moles/Vol] 139 mmol/L Normal 134-146 [place] Comment on above: Performed By: #### C MP #### [facility] ([id number]) [address] [facility] [address] [place] [address] Urea nitrogen [Mass/Vol] 15 mg/dL Normal 5-23 [facility] Comment on above: Performed By: #### C MP #### [facility] ([id number]) [address] [place] [address] HGB A1C (GLYCO-HGB)on 2023 Glucose [Mass/Vol] 186 mg/dL Normal [place] Comment on above: Performed By: #### C MP #### [facility] ([id number]) Count includes the [facility] [facility] [address] [place] [address] HbA1c (Bld) [Mass fraction] 8.1 % High 4.4-5.6 [facility] Comment on above: Result Comment: NOTE ADA Guidelines Result HgbA1c Normal : less than 5.7 % Prediabetes : 5.7 % to 6.4 % Diabetes : > 6.4 % Use with caution in patients with abnormal hemoglobin variants as the half-life of red blood cells and in vivo glycation rates are affected. Performed By: #### C MP #### [facility] ([id number]) [address] [facility] [address] [place] [address] Vital Signs Date Time Vital Sign Value Performing Clinician Jacque alcala 02-21-2023 06:46-0400 Body height 156.21 cm DO Lalita Rumschlag Work Phone: [facility] 02-21-2023 06:46-0400 Body weight 74.84 kg DO Lalita Rumschlag Work Phone: [facility] 01-17-2023 11:00-0400 Body height 154.94 cm Nicholas Anneanisha Other [employer] Other 01-17-2023 11:00-0400 Body mass index (BMI) [Ratio] 49.5 kg/m2 Nicholas Anneanisha Other [employer] Other 01-17-2023 11:00-0400 Body weight 118.84 kg Nicholas Arteaga Other [employer] Other 01-17-2023 11:00-0400 Diastolic blood pressure 81 mm[Hg] Nicholas Jasmyneclover Other [employer] Other 01-17-2023 11:00-0400 Systolic blood pressure 155 mm[Hg] Nicholas Dayanaanisha Other [employer] Other 07-20-2021 14:45-0500 Body weight 114.76 kg Jericho Qureshi Other [employer] Other Encounters Encounter Date Encounter Type Care Provider Facility Start: 06-24-2023 End: 06-25-2023 ambulatory LALITA WESTBROOK [facility] Start: 06-23-2023 End: 06-24-2023 ambulatory LALITA WESTBROOK [facility] Start: 06-22-2023 End: 06-23-2023 ambulatory TRINA DANIEL [facility] Start: 06-19-2023 End: 06-19-2023 [facility] Start: 06-06-2023 Niya Gutierrez RN [facility] Start: 02-21-2023 End: 02-21-2023 ambulatory Stephen Wilkins Facility:[facility] Start: 02-21-2023 End: 02-21-2023 ambulatory DO Lalita Rumschlag Work Phone: [facility] Work Phone: Start: 02-21-2023 End: 02-21-2023 Patient encounter procedure DO Lalita Rumschlag Work Phone: [facility] Work Phone: Start: 01-17-2023 End: 01-17-2023 ambulatory Nicholas Arteaga Other [employer] Other Start: 01-17-2023 [facility] visit new patient Nicholas Arteaga [facility] Start: 07-20-2021 End: 07-20-2021 ambulatory Jericho Qureshi Other [employer] Other Start: 07-20-2021 Office outpatient visit 25 minutes Jericho [facility] Start: 06-03-2020 End: 06-03-2020 ambulatory JERICHO QURESHI Facility: Procedures Date Procedure Procedure Detail Performing Clinician Start: 02-21-2023 Esophageal manometry DO Lalita Rumschlag Work Phone: Plan of Treatment Date Care Activity Detail Author Start: 03-22-2024 Tobacco Screening Tobacco Screening [place] Start: 02-09-2024 Adult BMI Screening Adult BMI Screening [place] Start: 09-20-2023 End: 09-20-2023 Patient encounter procedure 09/20/2023 2:00 PM EDT Office Visit [facility] [address] [place] [id number] Sia Grider, PASoledadC [address] [place] [address] [facility] Start: 02-21-2023 [facility] Start: 01-13-2023 COVID-19 Vaccine ( season) COVID-19 Vaccine ( season) [place] Start: 01-13-2023 Influenza vaccination Influenza Vaccine [place] Start: 2013 Administration of varicella zoster vaccine Zoster (Shingles) Vaccine (1 of 2) [place] Start: 1984 Screening for malignant neoplasm of cervix Pap Smear [place] Start: 1982 DTaP,Tdap and Td Vaccines (1 - Tdap) DTaP,Tdap and Td Vaccines (1 - Tdap) [place] Start: 1981 Adult BMI Follow Up Plan Adult BMI Follow Up Plan [place] Start: 1975 Depression Screening Depression Screening [place] Immunizations Immunization Date Immunization Notes Care Provider Fa cility 07-22-2020 COVID-19 Vaccine, vector-nr, rS-Ad26, PF, 0.5mL Pauly Gutierrez RN [place] 03-11-2020 influenza virus vaccine, unspecified formulation Pauly Gutierrez RN [place] Payers Date Payer Category Payer Medicare [id number] 2023 Medicare [id number] 2023 Self-pay 2022 Medicare MEDICARE MEDICAR E PART A & B [id number] 2022-Present [phone] [address] [place] [address] [id number] 1965 Unknown [id number] 1965 Unknown [id number] 1965 Unknown [id number] 1965 Unknown [id number] 1965 Unknown [id number] 1959 Unknown [id number] Medicaid [id number] Unknown [id number] Social History Date Type Detail Facility Start: 05-29-2020 End: 03-22-2023 Sex Assigned At [facility] [employer] Other Start: 1965 Sex Assigned At Female F [facility] Start: 03-30-2022 Tobacco smoking stat [facility] Never smoked tobacco [facility] Start: 03-30-2022 Tobacco use and exposure Smokeless tobacco non-user [facility] Start: 03-22-2023 Alcohol intake Current drinke r of alcohol (finding) [facility] Start: 05-29-2020 End: 03-22-2023 History of Social function [facility] Childcare Unknown [facility] Start: 03-01-[address] [facility] Start: 1965 Sex Assigned At Not on file P [facility] Goals Date Patient Goal Desired Activity [...] has been effective. documented in this encounter [facility] Telephone encounter Note 06-06-2023 Telephone Encounter [...] that the daily does has been effective. [facility] Evaluation note 01-17-2023 Note Date & [...] describes a poking pain in her chest. [employer] Other Evaluation note 07-20-2021 Note Date & Type Note Facility 07-20-2021 Evaluation note Encounter Date Diagnosis Assessment Notes Jul, GERD (gastroesopha geal reflux disease) (ICD-10 - K21.9) Jul, Abdominal pain (ICD-10 - R10.9) severe sharp pain imaging ordered and medication started Jul, Black stools (ICD-10 - K92.1) [employer] Other Clinical Note 06-03-2020 Note Date & [...] in 5 years based on family history. [facility] Signed and Approved by: JERICHO QURESHI JR 06/10/2020 11:26:00 [facility] Evaluation note Note Date & Type Note Facility Evaluation note No assessment information [facility] Work Phone: History general Narrative - Reported Note Date & Type Note Facility History general Narrative - Reported Type Medical History GERD Medical History esophageal spasm Surgical History appendectomy Surgical History C section [employer] Other History general Narrative - Reported Note Date & Type Note Facility History general Narrative - Reported Type Medical History GERD Medical History esophageal spasm Surgical History appendectomy Surgical History C section Surgical History ablasion-righ and left knee Hospitalization History see above [employer] Other Instructions Note Date & Type Note [...] DATE CREATED AUTHOR AUTHOR'S ORGANIZ ATION 03/19/2023 [facility] DATE CREATED AUTHOR AUTHOR'S ORGANIZ ATION 06/26/2023 [facility] REASON FOR VISIT (unrecogniz ed section and content) Reason Onset Date Comments Med Refill 06/06/2023 Care Teams (unrecognized sec tion and content) Team Status: Active Member Role Status Dates Lalita Westbrook DO Primary Care Provider Active Team Status: Inactive Member Role Status Dates Stephen Wilkins MD Attending Provider Active Lalita Westbrook DO Primary Care Provider Active Hand Or Machine Paster Relationship Specialty Start Date End Date Lalita Westbrook DO [address] [place] [address] PCP - General Family Medicine 11/26/19 FOR [...] BE BASED ON THE PRIMARY CLINICAL RECORDS. [facility] [employer] [facility]. provides no warranty or guarantee of the accuracy or completeness of information in this document.
== END 2023-08-28 12:32 | disposition home or self-care (01) ==
LOC: VC 12:31
PROVIDERS: PCP Radiology Diagnostic Radiology; Visit Provider Radiology Diagnostic Radiology
DX: I80.01 Phlebitis and thrombophlebitis of superficial vessels of right lower extremity (principal)
CPT/HCPCS: 93971; G0463

== ENCOUNTER 2023-09-06 10:57 | Outpatient (OUT) | payer MEDICARE, SELFPAY ==
--- NOTE | 2023-09-06 10:58 | VEIN_ITS ---
[address] [address] Patient Name: KATIANA MARISCAL MRN: [id number] date: 1965 Sex: F Assigned Patient Location: Current Patient Location: Accession/Order Number: [id number] Exam Date: 09/06/2023 11:00 Report Date: 09/07/2023 06:22 At the request of: JERICHO MAS Procedure: VC INJ Foam Sclerosant WUS RF TEST ENGINEER PROCEDURE: VC INJ Foam Sclerosant WUS RF TEST ENGINEER HISTORY: Pain due to varicose veins of bilateral legs I83.813 Pre-operative Diagnosis: CEAP class C3 venous insufficiency with pain, tenderness, edema and incompetent branch saphenous vein(s), chronic venous insufficiency left leg secondary to venous incompetence Post-operative Diagnosis: CEAP class C3 venous insufficiency with pain, tenderness, edema and incompetent branch saphenous vein(s), chronic venous insufficiency left leg secondary to venous incompetence Procedure Performed: 1. Ultrasound-guided microfoam chemical ablation with Varithenaregistered 2. Intraoperative ultrasound guidance Physician: Graham Sampson M.D. Anesthesia: None Indications for Procedure: 58 year old female. Symptoms including dilated bulging veins, leg pain, swelling for many years despite conservative medical therapy including medical compression stockings, exercise and analgesics. Prior procedures include endovenous laser ablation and microfoam chemical ablation. Multiple incompetent varicosities of the left leg. Duplex scan showed reflux and enlarged diameters up to 7 mm. The patient underwent informed consent including management options where the complications of infection, bleeding, pain, and skin injury were discussed. Particular attention was spent discussing thrombus extension and deep vein thrombosis as well as the possibility of pulmonary embolus and treatment with oral or injectable blood thinners. Procedure: The patient walked to the procedure room. All applicable staff donned appropriate apparel. A procedure timeout was performed to confirm correct patient, correct extremity, correct procedure, and correct room set-up including presence of all applicable supplies, devices, and drugs. A duplex ultrasound, performed by myself confirmed the location and incompetence of branch saphenous varicosities and their course was marked on the skin together with the dilated tributaries. The extent of treatment of the vein and the associated varicosities was determined through ultrasound mapping. The skin was prepped and then punctured with a butterfly needle and advanced under ultrasound guidance. The Varithenaregistered canister was activated and the canister was primed and purged as required in the instructions for use. Varithenaregistered was drawn into a sterile syringe. Varithenaregistered was slowly administered at 0.5-1.0 cc/second with close observation by ultrasound of its course in the vessels. Total volume utilized was: 15 mL (8 mL into a 7 mm varicosity mid medial lower left leg; 7 mL into a 6 mm varicosity proximal medial lower left leg). Following administration of Varithenaregistered the leg was elevated and the patient was asked to repeatedly dorsiflex the ankle to limit flow of Varithenaregistered into perforating veins. Once appropriate spasm had been confirmed in the treated veins, the vascular catheter was removed from the leg and light pressure was applied over the puncture site for hemostasis. The common femoral and deep superficial veins were then evaluated for flow and compressibility prior to dressing placement. The lower extremity was kept elevated at 45 degrees above the horizontal and cording material was applied over the saphenous segments and tributaries to allow for eccentric compression over the target vessels including the targeted saphenous vein(s). A multilayer dressing was applied consisting of foam pads, coban and thigh-high 20-30 mm Hg compression elastic support hose were placed on the patient. The leg was lowered only after compression had been applied and the patient was immediately ambulatory. The patient ambulated 10 minutes under supervision and was without apparent concerns at time of release. Post-care instructions include advising patient to keep post-treatment bandages in place and dry for 48 hours, avoid extended periods of inactivity, avoid heavy exercise for one week, wear compression stockings on the treated leg continuously for two weeks, to walk daily for 10 minutes over the next month. The patient was instructed to take an anti-inflammatory medicine as needed and to follow up for color duplex scan of the Saphenous veins, the treated branch saphenous varicosities, the adjacent deep veins, and additional treatment within 7 days. PERSONNEL: Mello Ko RN and Bartolo Stevenson RDMS Electronically authenticated by: GRAHAM SAMPSON Date: 09/07/2023 06:22
== END 2023-09-06 10:58 | disposition home or self-care (01) ==
LOC: VC 10:57
PROVIDERS: PCP Radiology Diagnostic Radiology; Visit Provider Radiology Diagnostic Radiology
DX: I83.813 Varicose veins of bilateral lower extremities with pain (principal)
CPT/HCPCS: 36466; 36471

== ENCOUNTER 2023-09-11 12:27 | Outpatient (OUT) | payer MEDICARE, MEDICAID, SELFPAY ==
--- NOTE | 2023-09-11 12:31 | VEIN_ITS ---
Patient Name: KATIANA MARISCAL MR#: [id number] : 1965 Exam Date: 09/11/2023 Ordering Doctor: DR JERICHO MAS M.D. RADIOLOGY REPORT PROCEDURE: [facility] EST [facility] - OFFICE VISIT FOLLOW UP [facility] PROGRESS NOTES: The patient reports improvement in leg symptoms. There has been interval reduction in varicosities. The patient has followed our recommendations to walk 20-30 minutes once or twice per day since the procedure. Physical exam demonstrates decrease in varicosities of the leg. Persistent varicosities are identified along the legs bilaterally. Review of the ultrasound performed the same day demonstrates occlusive thrombus extending throughout the treated vein(s), see separate report, consistent with a successful ablation. No thrombus extending into or beyond the saphenofemoral junction. The patient expressed a desire to proceed with treatment of remaining incompetent varicosities. The patient was informed that treatment was a process and would require approximately 2 procedures/sessions. VEIN/[facility] EST TD IMPRESSION: 1. Successful ablation of the left leg treated branch saphenous vein(s). 2. Persistent bilateral varicose veins and lower extremity symptoms. PLAN: Microfoam chemical ablation of incompetent branch saphenous varicosities of right leg followed by another treatment of the left leg. Nurse notes, history and physical were reviewed and confirmed, see attached forms. The nurse was present throughout the physical exam and consultation Dictated by: Graham Sampson M.D. on 09/11/2023 at 13:07 Approved by: Graham Sampson M.D. on 09/11/2023 at 13:09
--- NOTE | 2023-09-11 12:31 | VEIN_ITS ---
Patient Name: KATIANA MARISCAL MR#: [id number] : 1965 Exam Date: 09/11/2023 Ordering Doctor: DR JERICHO MAS M.D. RADIOLOGY REPORT PROCEDURE: VC EXT VENOUS LT LIMITED COMPARISON: VC EXT VENOUS LT LIMITED, 08/14/2023. INDICATIONS: I80.02 Phlebitis of superficial veins of left lower extremity TECHNIQUE: Lower extremity marcum scale and Duplex Doppler evaluation of the deep venous system from the inguinal ligament through the calf veins. FINDINGS: REGION: Left lower extremity. THROMBI: Negative for DVT. Chemically induced thrombus in left leg varicose veins. COMPRESSIBILITY: Non-compressible segments corresponding to thrombus FLOW: Areas of no flow corresponding to thrombus OTHER: Large patent varicose vein along lateral left leg, 8.0mm. CONCLUSION: 1. Successful post ablation occlusion of treated left leg branch saphenous varicosities. Dictated by: Graham Sampson M.D. on 09/11/2023 at 13:05 Approved by: Graham Sampson M.D. on 09/11/2023 at 13:07
--- OUTSIDE RECORDS SUMMARY | 2023-09-11 12:42 | XMS_ITS | CCD ---
Author Organization [facility] Care Team Providers Care Financial Reporting Manager Name Role Phone JERICHO QURESHI JR Attending Unavailable JERICHO QURESHI JR Consulting Unavailable JERICHO QURESHI JR Admitting Unavailable [facility] Primary Care Unava ilable CHELSEA LEAVITT Consulting [...] Active Start: 01-17-2023 take 1 capsule by [facility] once daily Omeprazole 40 MG 1 capsule 30 minutes before morning meal Orally Once a day for 30 days Jan, Active take 1 capsule by [facility] every twenty-four hours Omeprazole 20 MG [...] Major depressive disorder, single episode, unspecified; Translations: [EIDTA DEPRESS D/O SINGLE EPIS UNS] Onset: 06-04-2020 [...] 07-20-2021 Episodic Other aftercare (1 source) 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; Translations: [OTH NURSE EXTERN CURRENT DRUG THERAPY] Onset: 06-04-2020 Episodic Other [...] [Mass/Vol] 4.0 g/dL Normal 3.2-5.3 [facility] Comment on above: Performed By: #### C MP #### [facility] ([id number]) [address], [address] [place] [address] ALP [Catalytic activity/Vol] 92 U/L Normal 39-130 [facility] Comment on above: Performed By: #### C MP #### [facility] ([id number]) [address], [address] [place] [address] ALT [Catalytic activity/Vol] 23 U/L Normal 0-31 [facility] Comment on above: Performed By: #### C MP #### [facility] ([id number]) [address], [address] [place] [address] Anion gap [Moles/Vol] 9 mmol/L Normal 5-15 [facility] Comment on above: Performed By: #### C MP #### [facility] ([id number]) [address], [address] [place] [address] AST [Catalytic activity/Vol] 24 U/L Normal 0-41 [facility] Comment on above: Performed By: #### C MP #### [facility] ([id number]) [address], [address] [place] [address] Bilirubin [Mass/Vol] 1.0 mg/dL Normal 0.3-1.2 [facility] Comment on above: Performed By: #### C MP #### [facility] ([id number]) [address], [address] [place] [address] Calcium [Mass/Vol] 9.0 mg/dL Normal 8.5-10.5 [facility] Comment on above: Performed By: #### C MP #### [facility] ([id number]) [address] [place] [address] Chloride [Moles/Vol] 103 mmol/L Normal 98-109 [facility] Comment on above: Performed By: #### C MP #### [facility] ([id number]) [address] [place] [address] CO2 [Moles/Vol] 27 mmol/L Normal 22-32 [facility] Comment on above: Performed By: #### C MP #### [facility] ([id number]) [address] [place] [address] Creatinine [Mass/Vol] 0.53 mg/dL Normal 0.40-1.00 [facility] Comment on above: Result Comment: METH OD TRACEABLE TO IDMS STANDARD Performed By: #### C MP #### [facility] ([id number]) [address], [address] [place] [address] eGFR (CKD-EPI) NON-RACE DEPENDENT >90 Normal >59 [facility] Comment on above: Result Comment: Reported eGFR is based on the CKD-EPI 2020 equation that does not use a race coefficient. Performed By: #### C MP #### [facility] ([id number]) [address] [place] [address] Glucose [Mass/Vol] 170 mg/dL High 65-99 [facility] Comment on above: Performed By: #### C MP #### [facility] ([id number]) [address] [place] [address] Potassium [Moles/Vol] 4.2 mmol/L Normal 3.5-5.0 [facility] Comment on above: Performed By: #### C MP #### [facility] ([id number]) [address] [place] [address] Protein [Mass/Vol] 7.2 g/dL Normal 6.0-8.0 [facility] Comment on above: Performed By: #### C MP #### [facility] ([id number]) [address], [address] [place] [address] Sodium [Moles/Vol] 139 mmol/L Normal 134-146 [facility] Comment on above: Performed By: #### C MP #### [facility] ([id number]) [address] [facility] [address] [place] [address] Urea nitrogen [Mass/Vol] 15 mg/dL Normal 5-23 [facility] Comment on above: Performed By: #### C MP #### [facility] ([id number]) [address] [facility] [address] [place] [address] HGB A1C (GLYCO-HGB)on 2023 Glucose [Mass/Vol] 186 mg/dL Normal [facility] Comment on above: Performed By: #### C MP #### [facility] ([id number]) Critical access hospital[facility] [address] [place] [address] HbA1c (Bld) [Mass fraction] 8.1 % High 4.4-5.6 [facility] Comment on above: Result Comment: NOTE ADA Guidelines Result HgbA1c Normal : less than 5.7 % Prediabetes : 5.7 % to 6.4 % Diabetes : > 6.4 % Use with caution in patients with abnormal hemoglobin variants as the half-life of red blood cells and in vivo glycation rates are affected. Performed By: #### C MP #### [facility] ([id number]) [address] [facility] [address] [place] [address] Vital Signs Date Time Vital Sign Value Performing Clinician Jacque alcala 02-21-2023 06:46-0400 Body height 156.21 cm DO Lalita Rumschlag Work Phone: [facility] 02-21-2023 06:46-0400 Body weight 74.84 kg DO Lalita Rumschlag Work Phone: [facility] 01-17-2023 11:00-0400 Body height 154.94 cm Nicholas Anneanisha Other [facility] Other 01-17-2023 11:00-0400 Body mass index (BMI) [Ratio] 49.5 kg/m2 Nicholas Anneanisha Other [facility] Other 01-17-2023 11:00-0400 Body weight 118.84 kg Nicholas Arteaga Other [facility] Other 01-17-2023 11:00-0400 Diastolic blood pressure 81 mm[Hg] Nicholas Jasmyneclover Other [facility] Other 01-17-2023 11:00-0400 Systolic blood pressure 155 mm[Hg] Nicholas Dayanaanisha Other [facility] Other 07-20-2021 14:45-0500 Body weight 114.76 kg Jericho Qureshi Other [facility] Other Encounters Encounter Date Encounter Type Care Provider Facility Start: 06-24-2023 End: 06-25-2023 ambulatory LALITA WESTBROOK [facility] Start: 06-23-2023 End: 06-24-2023 ambulatory LALITA WESTBROOK [facility] Start: 06-22-2023 End: 06-23-2023 ambulatory TRINA DANIEL [facility] Start: 06-19-2023 End: 06-19-2023 [facility] Start: 06-06-2023 Niya Gutierrez RN [facility] Start: 02-21-2023 End: 02-21-2023 ambulatory Stephen Wilkins Facility:[facility] Start: 02-21-2023 End: 02-21-2023 ambulatory DO Lalita Rumschlag Work Phone: [facility] Work Phone: Start: 02-21-2023 End: 02-21-2023 Patient encounter procedure DO Lalita Rumschlag Work Phone: [facility] Work Phone: Start: 01-17-2023 End: 01-17-2023 ambulatory Nicholas Arteaga Other [facility] Other Start: 01-17-2023 [facility] visit new patient Nicholas Arteaga [facility] Start: 07-20-2021 End: 07-20-2021 ambulatory Jericho Qureshi Other [facility] Other Start: 07-20-2021 Office outpatient visit 25 minutes Jericho [facility] Start: 06-03-2020 End: 06-03-2020 ambulatory JERICHO QURESHI Facility: Procedures Date Procedure Procedure Detail Performing Clinician Start: 02-21-2023 Esophageal manometry DO Lalita Rumschlag Work Phone: Plan of Treatment Date Care Activity Detail Author Start: 03-22-2024 Tobacco Screening Tobacco Screening [facility] Start: 02-09-2024 Adult BMI Screening Adult BMI Screening [facility] Start: 09-20-2023 End: 09-20-2023 Patient encounter procedure 09/20/2023 2:00 PM EDT Office Visit [facility] [address] [id number] Sia Grider, PASoledadC [address] [place] [address] [facility] Start: 02-21-2023 [facility] Start: 01-13-2023 COVID-19 Vaccine ( season) COVID-19 Vaccine ( season) [facility] Start: 01-13-2023 Influenza vaccination Influenza Vaccine [facility] Start: 2013 Administration of varicella zoster vaccine Zoster (Shingles) Vaccine (1 of 2) [facility] Start: 1984 Screening for malignant neoplasm of cervix Pap Smear [facility] Start: 1982 DTaP,Tdap and Td Vaccines (1 - Tdap) DTaP,Tdap and Td Vaccines (1 - Tdap) [facility] Start: 1981 Adult BMI Follow Up Plan Adult BMI Follow Up Plan [facility] Start: 1975 Depression Screening Depression Screening [facility] Immunizations Immunization Date Immunization Notes Care Provider Fa cility 07-22-2020 COVID-19 Vaccine, vector-nr, rS-Ad26, PF, 0.5mL Pauly Gutierrez RN [facility] 03-11-2020 influenza virus vaccine, unspecified formulation Pauly Gutierrez RN [facility] Payers Date Payer Category Payer Medicare [id number] 2023 Medicare [id number] 2023 Self-pay 2022 Medicare MEDICARE MEDICAR E PART A & B [id number] 2022-Present [phone] [address] [place] [address] [id number] 1965 Unknown [id number] 1965 Unknown [id number] 1963 Unknown [id number] 1963 Unknown [id number] 1963 Unknown [id number] 1959 Unknown [id number] Medicaid [id number] Unknown [id number] Social History Date Type Detail Facility Start: 05-29-2020 End: 03-22-2023 Sex Assigned At [facility] [employer] Other Start: 1965 Sex Assigned At Female F [facility] Start: 03-30-2022 Tobacco smoking stat [facility] Never smoked tobacco [facility] Start: 03-30-2022 Tobacco use and exposure Smokeless tobacco non-user [facility] Start: 03-22-2023 Alcohol intake Current drinke r of alcohol (finding) [facility] Start: 05-29-2020 End: 03-22-2023 History of Social function [facility] Childcare Unknown [facility] Start: 03-01-2017 Alcohol Comment occasional [facility] Start: 1965 Sex Assigned At Not on file P [facility] Goals Date Patient Goal [...] has been effective. documented in this encounter [facility] Telephone encounter Note 06-06-2023 Telephone Encounter [...] that the daily does has been effective. [facility] Evaluation note 01-17-2023 Note Date & [...] describes a poking pain in her chest. [facility] Other Evaluation note 07-20-2021 Note Date & Type Note Facility 07-20-2021 Evaluation note Encounter Date Diagnosis Assessment Notes Jul, GERD (gastroesopha geal reflux disease) (ICD-10 - K21.9) Jul, Abdominal pain (ICD-10 - R10.9) severe sharp pain imaging ordered and medication started Jul, Black stools (ICD-10 - K92.1) [facility] Other Clinical Note 06-03-2020 Note Date & [...] in 5 years based on family history. [facility] Signed and Approved by: JERICHO QURESHI JR 06/10/2020 11:26:00 [facility] Evaluation note Note Date & Type Note Facility Evaluation note No assessment information [facility] Work Phone: History general Narrative - Reported Note Date & Type Note Facility History general Narrative - Reported Type Medical History GERD Medical History esophageal spasm Surgical History appendectomy Surgical History C section [facility] Other History general Narrative - Reported Note Date & Type Note Facility History general Narrative - Reported Type Medical History GERD Medical History esophageal spasm Surgical History appendectomy Surgical History C section Surgical History ablasion-righ and left knee Hospitalization History see above [facility] Other Instructions Note Date & Type Note [...] DATE CREATED AUTHOR AUTHOR'S ORGANIZ ATION 03/19/2023 [facility] DATE CREATED AUTHOR AUTHOR'S ORGANIZ ATION 06/26/2023 [facility] REASON FOR VISIT (unrecogniz ed section and content) Reason Onset Date Comments Med Refill 06/06/2023 Care Teams (unrecognized sec tion and content) Team Status: Active Member Role Status Dates Lalita Westbrook DO Primary Care Provider Active Team Status: Inactive Member Role Status Dates Stephen Wilkins MD Attending Provider Active Lalita Westbrook DO Primary Care Provider Active Financial Reporting Manager Relationship Specialty Start Date End Date Lalita Westbrook DO [address] [place] [address] PCP - General Family Medicine 11/26/19 FOR [...] BE BASED ON THE PRIMARY CLINICAL RECORDS. [facility] Patients Know Best [facility]. provides no warranty or guarantee of the accuracy or completeness of information in this document.
== END 2023-09-11 12:28 | disposition home or self-care (01) ==
LOC: VC 12:27
PROVIDERS: PCP Radiology Diagnostic Radiology; Visit Provider Radiology Diagnostic Radiology
DX: I80.02 Phlebitis and thrombophlebitis of superficial vessels of left lower extremity (principal)
CPT/HCPCS: 93971; G0463

== ENCOUNTER 2023-09-19 09:29 | Outpatient (OUT) | payer MEDICARE, MEDICAID, SELFPAY ==
--- OUTSIDE RECORDS SUMMARY | 2023-09-19 09:37 | XMS_ITS | CCD ---
Author Organization [facility] Care Team Providers Care Public Health Aides Teacher Name Role Phone JERICHO QURESHI JR Attending Unavailable JERICHO QURESHI JR Consulting Unavailable JERICHO QURESHI JR Admitting Unavailable [facility] Primary Care Unava ilable CHELSEA LEAVITT Consulting Unavailable Jericho Qureshi Unavailable Nicholas Arteaga Unavailable MD Stephen Wilkins Attending Provider Noelle, DO Lalita Primary Care Provider Stephen Wilkins Admitting Unavailabl e Stephen Wilkins Attending Unavailabl e Rumschlag, Lalita Primary Care Unavailable Rumschlag DO, Lalita K Primary Care Provider [phone] RUMSCHLAG, LALITA K Primary Care Unavailable TRINA DANIEL Attending Unavailable TRINA DANIEL Attending Unavailable TRINA DANIEL Referring Unavailable RUMSCHLAG, LALITA K Primary Care Unavailable RUMSCHLAG, LAILTA K Referring Unavailable RUMSCHLAG, LALITA K Primary [...] Start: 01-17-2023 take 1 capsule by [facility] once daily Omeprazole 40 MG 1 capsule 30 minutes before morning meal Orally Once a day for 30 days Jan, Active take 1 capsule by [facility] every twenty-four hours Omeprazole 20 MG [...] 07-20-2021 Episodic Other aftercare (1 source) 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; Translations: [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 DRUG THERAPY] Onset: 06-04-2020 Episodic [...] [Mass/Vol] 4.0 g/dL Normal 3.2-5.3 [facility] Comment on above: Performed By: #### C MP #### [facility] ([id number]) [address], [address] [place] [address] ALP [Catalytic activity/Vol] 92 U/L Normal 39-130 [facility] Comment on above: Performed By: #### C MP #### [facility] ([id number]) [address], [address] [place] [address] ALT [Catalytic activity/Vol] 23 U/L Normal 0-31 [facility] Comment on above: Performed By: #### C MP #### [facility] ([id number]) [address], [address] [place] [address] Anion gap [Moles/Vol] 9 mmol/L Normal 5-15 [facility] Comment on above: Performed By: #### C MP #### [facility] ([id number]) [address], [address] [place] [address] AST [Catalytic activity/Vol] 24 U/L Normal 0-41 [facility] Comment on above: Performed By: #### C MP #### [facility] ([id number]) [address], [address] [place] [address] Bilirubin [Mass/Vol] 1.0 mg/dL Normal 0.3-1.2 [facility] Comment on above: Performed By: #### C MP #### [facility] ([id number]) [address], [address] [place] [address] Calcium [Mass/Vol] 9.0 mg/dL Normal 8.5-10.5 [facility] Comment on above: Performed By: #### C MP #### [facility] ([id number]) [address], [address] [place] [address] Chloride [Moles/Vol] 103 mmol/L Normal 98-109 [facility] Comment on above: Performed By: #### C MP #### [facility] ([id number]) [address], [address] [place] [address] CO2 [Moles/Vol] 27 mmol/L Normal 22-32 [facility] Comment on above: Performed By: #### C MP #### [facility] ([id number]) [address], [address] [place] [address] Creatinine [Mass/Vol] 0.53 mg/dL Normal 0.40-1.00 [facility] Comment on above: Result Comment: METH OD TRACEABLE TO IDMS STANDARD Performed By: #### C MP #### [facility] ([id number]) [address], [address] [place] [address] eGFR (CKD-EPI) NON-RACE DEPENDENT >90 Normal >59 [facility] Comment on above: Result Comment: Reported eGFR is based on the CKD-EPI 2020 equation that does not use a race coefficient. Performed By: #### C MP #### [facility] ([id number]) [address] [place] [address] Glucose [Mass/Vol] 170 mg/dL High 65-99 [facility] Comment on above: Performed By: #### C MP #### [facility] ([id number]) [address] [place] [address] Potassium [Moles/Vol] 4.2 mmol/L Normal 3.5-5.0 [facility] Comment on above: Performed By: #### C MP #### [facility] ([id number]) [address] [place] [address] Protein [Mass/Vol] 7.2 g/dL Normal 6.0-8.0 [facility] Comment on above: Performed By: #### C MP #### [facility] ([id number]) [address], [address] [place] [address] Sodium [Moles/Vol] 139 mmol/L Normal 134-146 [facility] Comment on above: Performed By: #### C MP #### [facility] ([id number]) [address] [facility] [address] [place] [address] Urea nitrogen [Mass/Vol] 15 mg/dL Normal 5-23 [facility] Comment on above: Performed By: #### C MP #### [facility] ([id number]) [address] [place] [address] HGB A1C (GLYCO-HGB)on 2023 Glucose [Mass/Vol] 186 mg/dL Normal [facility] Comment on above: Performed By: #### C MP #### [facility] ([id number]) [facility] [facility] [address] [place] [address] HbA1c (Bld) [Mass fraction] 8.1 % High 4.4-5.6 [facility] Comment on above: Result Comment: NOTE ADA Guidelines Result HgbA1c Normal : less than 5.7 % Prediabetes : 5.7 % to 6.4 % Diabetes : > 6.4 % Use with caution in patients with abnormal hemoglobin variants as the half-life of red blood cells and in vivo glycation rates are affected. Performed By: #### C MP #### [facility] ([id number]) [address] [facility] [address] [place] [address] Vital Signs Date Time Vital Sign Value Performing Clinician Jacque alcala 02-21-2023 06:46-0400 Body height 156.21 cm DO Lalita Rumschlag Work Phone: [facility] 02-21-2023 06:46-0400 Body weight 74.84 kg DO Lalita Rumschlag Work Phone: [facility] 01-17-2023 11:00-0400 Body height 154.94 cm Nicholas Anneanisha Other [facility] 01-17-2023 11:00-0400 Body mass index (BMI) [Ratio] 49.5 kg/m2 Nicholas Anneanisha Other [facility] 01-17-2023 11:00-0400 Body weight 118.84 kg Nicholas Arteaga Other [facility] 01-17-2023 11:00-0400 Diastolic blood pressure 81 mm[Hg] Nicholas Jasmyneclover Other [facility] Other 01-17-2023 11:00-0400 Systolic blood pressure 155 mm[Hg] Nicholas Dayanaanisha Other [facility] Other 07-20-2021 14:45-0500 Body weight 114.76 kg Jericho Qureshi Other [facility] Other Encounters Encounter Date Encounter Type Care Provider Facility Start: 06-24-2023 End: 06-25-2023 ambulatory LALITA WESTBROOK [facility] Start: 06-23-2023 End: 06-24-2023 ambulatory LALITA WESTBROOK [facility] Start: 06-22-2023 End: 06-23-2023 ambulatory TRINA DANIEL [facility] Start: 06-19-2023 End: 06-19-2023 [facility] Start: 06-06-2023 Niya Gutierrez RN [facility] Start: 02-21-2023 End: 02-21-2023 ambulatory Stephen Wilkins Facility:[facility] Start: 02-21-2023 End: 02-21-2023 ambulatory DO Lalita Rumschlag Work Phone: [facility] Work Phone: Start: 02-21-2023 End: 02-21-2023 Patient encounter procedure DO Lalita Rumschlag Work Phone: [facility] Work Phone: Start: 01-17-2023 End: 01-17-2023 ambulatory Nicholas Arteaga Other [facility] Start: 01-17-2023 [facility] visit new patient Nicholas Arteaga [facility] Start: 07-20-2021 End: 07-20-2021 ambulatory Jericho Qureshi Other [facility] Start: 07-20-2021 Office outpatient visit 25 minutes Jericho [facility] Start: 06-03-2020 End: 06-03-2020 ambulatory JERICHO QURESHI Facility: Procedures Date Procedure Procedure Detail Performing Clinician Start: 02-21-2023 Esophageal manometry DO Lalita Rumschlag Work Phone: Plan of Treatment Date Care Activity Detail Author Start: 03-22-2024 Tobacco Screening Tobacco Screening [facility] Start: 02-09-2024 Adult BMI Screening Adult BMI Screening [facility] Start: 09-20-2023 End: 09-20-2023 Patient encounter procedure 09/20/2023 2:00 PM EDT Office Visit [facility] [address] [place] [id number] Sia Grider, PASoledadC [address] [place] [address] [facility] Start: 02-21-[address] [facility] Start: 01-13-2023 COVID-19 Vaccine ( season) COVID-19 Vaccine ( season) [facility] Start: 01-13-2023 Influenza vaccination Influenza Vaccine [facility] Start: 2013 Administration of varicella zoster vaccine Zoster (Shingles) Vaccine (1 of 2) [facility] Start: 1984 Screening for malignant neoplasm of cervix Pap Smear [facility] Start: 1982 DTaP,Tdap and Td Vaccines (1 - Tdap) DTaP,Tdap and Td Vaccines (1 - Tdap) [facility] Start: 1981 Adult BMI Follow Up Plan Adult BMI Follow Up Plan [facility] Start: 1975 Depression Screening Depression Screening [facility] Immunizations Immunization Date Immunization Notes Care Provider Fa cility 07-22-2020 COVID-19 Vaccine, vector-nr, rS-Ad26, PF, 0.5mL Pauly Gutierrez RN [facility] 03-11-2020 influenza virus vaccine, unspecified formulation Pauly Gutierrez RN [facility] Payers Date Payer Category Payer Medicare [id number] 2023 Medicare [id number] 2023 Self-pay 2022 Medicare MEDICARE MEDICAR E PART A & B [id number] 2022-Present [phone] [address] [place] [address] [id number] 1965 Unknown [id number] 1965 Unknown [id number] 1965 Unknown [id number] 1965 Unknown [id number] 1965 Unknown [id number] 1959 Unknown [id number] Medicaid [id number] Unknown [id number] Social History Date Type Detail Facility Start: 05-29-2020 End: 03-22-2023 Sex Assigned At [facility] Other Start: 1965 Sex Assigned At Female F [facility] Start: 03-30-2022 Tobacco smoking stat [facility] Never smoked tobacco [facility] Start: 03-30-2022 Tobacco use and exposure Smokeless tobacco non-user [facility] Start: 03-22-2023 Alcohol intake Current drinke r of alcohol (finding) [facility] Start: 05-29-2020 End: 03-22-2023 History of Social function [facility] Childcare Unknown [facility] Start: 03-01-2017 Alcohol Comment [facility] Start: 1965 Sex Assigned At Not on file P [facility] Goals Date Patient Goal Desired [...] has been effective. documented in this encounter [facility] Telephone encounter Note 06-06-2023 Telephone Encounter [...] that the daily does has been effective. [facility] Evaluation note 01-17-2023 Note Date & [...] describes a poking pain in her chest. [facility] Evaluation note 07-20-2021 Note Date & Type Note Facility 07-20-2021 Evaluation note Encounter Date Diagnosis Assessment Notes Jul, GERD (gastroesopha geal reflux disease) (ICD-10 - K21.9) Jul, Abdominal pain (ICD-10 - R10.9) severe sharp pain imaging ordered and medication started Jul, Black stools (ICD-10 - K92.1) [facility] Other Clinical Note 06-03-2020 Note Date & [...] in 5 years based on family history. [facility] Signed and Approved by: JERICHO QURESHI JR 06/10/2020 11:26:00 [facility] Evaluation note Note Date & Type Note Facility Evaluation note No assessment information [facility] Work Phone: History general Narrative - Reported Note Date & Type Note Facility History general Narrative - Reported Type Medical History GERD Medical History esophageal spasm Surgical History appendectomy Surgical History C section [facility] Other History general Narrative - Reported Note Date & Type Note Facility History general Narrative - Reported Type Medical History GERD Medical History esophageal spasm Surgical History appendectomy Surgical History C section Surgical History ablasion-righ and left knee Hospitalization History see above [facility] Other Instructions Note Date & Type Note [...] DATE CREATED AUTHOR AUTHOR'S ORGANIZ ATION 03/19/2023 [facility] DATE CREATED AUTHOR AUTHOR'S ORGANIZ ATION 06/26/2023 [facility] REASON FOR VISIT (unrecogniz ed section and content) Reason Onset Date Comments Med Refill 06/06/2023 Care Teams (unrecognized sec tion and content) Team Status: Active Member Role Status Dates Lalita Westbrook DO Primary Care Provider Active Team Status: Inactive Member Role Status Dates Stephen Wilkins MD Attending Provider Active Lalita Westbrook DO Primary Care Provider Active Public Health Aides Teacher Relationship Specialty Start Date End Date Lalita Westbrook DO [address] [place] [address] PCP - General Family Medicine 11/26/19 FOR [...] BE BASED ON THE PRIMARY CLINICAL RECORDS. [facility] [employer] [facility]. provides no warranty or guarantee of the accuracy or completeness of information in this document.
--- NOTE | 2023-09-19 09:40 | VEIN_ITS ---
[address] [address] Patient Name: KATIANA MARISCAL MRN: [id number] date: 1965 Sex: F Assigned Patient Location: Current Patient Location: Accession/Order Number: [id number] Exam Date: 09/19/2023 09:41 Report Date: 09/19/2023 12:37 At the request of: JERICHO MAS Procedure: VC INJ Foam Sclerosant WUS RN INFUSION PROCEDURE: VC INJ Foam Sclerosant WUS RN INFUSION HISTORY: I83.813 Bilateral leg painful varicose veins Pre-operative Diagnosis: CEAP class C3 venous insufficiency with pain, tenderness, edema and incompetent branch saphenous vein(s), chronic venous insufficiency right leg secondary to venous incompetence Post-operative Diagnosis: CEAP class C3 venous insufficiency with pain, tenderness, edema and incompetent branch saphenous vein(s), chronic venous insufficiency right leg secondary to venous incompetence Procedure Performed: 1. Ultrasound-guided microfoam chemical ablation with Varithenaregistered 2. Intraoperative ultrasound guidance Physician: Graham Sampson M.D. Anesthesia: None Indications for Procedure: 58 year old female. Symptoms including edema, heaviness, dilated bulging veins for many years despite conservative medical therapy including medical compression stockings, exercise and analgesics. Prior procedures include endovenous laser ablation and microfoam chemical ablation. Multiple incompetent varicosities of the right leg. Duplex scan showed reflux and enlarged diameters up to 13 mm. The patient underwent informed consent including management options where the complications of infection, bleeding, pain, and skin injury were discussed. Particular attention was spent discussing thrombus extension and deep vein thrombosis as well as the possibility of pulmonary embolus and treatment with oral or injectable blood thinners. Procedure: The patient walked to the procedure room. All applicable staff donned appropriate apparel. A procedure timeout was performed to confirm correct patient, correct extremity, correct procedure, and correct room set-up including presence of all applicable supplies, devices, and drugs. A duplex ultrasound, performed by myself confirmed the location and incompetence of branch saphenous varicosities and their course was marked on the skin together with the dilated tributaries. The extent of treatment of the vein and the associated varicosities was determined through ultrasound mapping. The skin was prepped and then punctured with a butterfly needle and advanced under ultrasound guidance. The Varithenaregistered canister was activated and the canister was primed and purged as required in the instructions for use. Varithenaregistered was drawn into a sterile syringe. Varithenaregistered was slowly administered at 0.5-1.0 cc/second with close observation by ultrasound of its course in the vessels. Total volume utilized was: 15 mL (7 mL into a 6.5 mm varicosity mid-lateral lower right leg; 8 mL into a 13 mm varicosity distal lateral right thigh). Following administration of Varithenaregistered the leg was elevated and the patient was asked to repeatedly dorsiflex the ankle to limit flow of Varithenaregistered into perforating veins. Once appropriate spasm had been confirmed in the treated veins, the vascular catheter was removed from the leg and light pressure was applied over the puncture site for hemostasis. The common femoral and deep superficial veins were then evaluated for flow and compressibility prior to dressing placement. The lower extremity was kept elevated at 45 degrees above the horizontal and cording material was applied over the saphenous segments and tributaries to allow for eccentric compression over the target vessels including the targeted saphenous vein(s). A multilayer dressing was applied consisting of foam pads, coban and thigh-high 20-30 mm Hg compression elastic support hose were placed on the patient. The leg was lowered only after compression had been applied and the patient was immediately ambulatory. The patient ambulated 10 minutes under supervision and was without apparent concerns at time of release. Post-care instructions include advising patient to keep post-treatment bandages in place and dry for 48 hours, avoid extended periods of inactivity, avoid heavy exercise for one week, wear compression stockings on the treated leg continuously for two weeks, to walk daily for 10 minutes over the next month. The patient was instructed to take an anti-inflammatory medicine as needed and to follow up for color duplex scan of the Saphenous veins, the treated branch saphenous varicosities, the adjacent deep veins, and additional treatment within 7 days. PERSONNEL: Gloria Be RN Electronically authenticated by: GRAHAM SAMPSON Date: 09/19/2023 12:37
== END 2023-09-19 09:30 | disposition home or self-care (01) ==
LOC: VC 09:29
PROVIDERS: PCP Radiology Diagnostic Radiology; Visit Provider Radiology Diagnostic Radiology
DX: I83.813 Varicose veins of bilateral lower extremities with pain (principal)
CPT/HCPCS: 36466

== ENCOUNTER 2023-09-25 11:08 | Outpatient (OUT) | payer MEDICARE, MEDICAID, SELFPAY ==
--- NOTE | 2023-09-25 11:25 | VEIN_ITS ---
Patient Name: KATIANA MARISCAL MR#: [id number] : 1965 Exam Date: 09/25/2023 Ordering Doctor: DR FRANCISCO WHITAKER M.D. RADIOLOGY REPORT PROCEDURE: FACILITY EST LMTD [facility] - OFFICE VISIT FOLLOW UP COMPARISON: [facility] EST LMT[facility], 09/11/2023. FACILITY EST LMTD, 08/28/2023. PROGRESS NOTES: The patient reports improvement in leg symptoms. The patient had no significant problems following micro foam chemical ablation of right leg incompetent varicose veins. The patient did not require oral analgesics. The patient did wear her compression stockings. The patient did walk as instructed. Physical exam demonstrates multiple thrombosed varicose veins. Multiple patent varicose veins remain. Some mild hemosiderin staining. Per minute hemosiderin staining related to sun exposure was discussed with the patient and I recommended either cover or mineral sun screen. No erythema or warmth to suggest cellulitis or thrombophlebitis. No active ulceration Review of the ultrasound performed the same day demonstrates occlusive thrombus extending throughout the treated varicose veins. Bilateral residual varicose veins. The patient expressed a desire to proceed with treatment of residual varicose veins with micro foam chemical ablation. VEIN/[facility] EST LMTD IMPRESSION: 1. Successful ablation of treated right leg varicose veins 2. Persistent bilateral incompetent varicose veins. PLAN: Micro foam chemical ablation left leg incompetent varicose veins Nurse notes, history and physical were reviewed and confirmed, see attached forms. The nurse was present throughout the physical exam and consultation Dictated by: Francisco Whitaker MD on 09/25/2023 at 11:49 Approved by: Francisco Whitaker MD on 09/25/2023 at 12:02
--- NOTE | 2023-09-25 11:25 | VEIN_ITS ---
Patient Name: KATIANA MARISCAL MR#: [id number] : 1965 Exam Date: 09/25/2023 Ordering Doctor: DR FRANCISCO WHITAKER M.D. RADIOLOGY REPORT PROCEDURE: VC EXT VENOUS RT LMTD COMPARISON: VC EXT VENOUS RT LMTD, 08/28/2023. VC EXT VENOUS RT LMTD, 07/31/2023. INDICATIONS: I80.01 Phlebitis of superficial veins of right lower extremity TECHNIQUE: Lower extremity marcum scale and Duplex Doppler evaluation of the deep venous system from the inguinal ligament through the calf veins. FINDINGS: REGION: Right lower extremity. THROMBI: Negative for DVT. Chemically induced thrombus in right leg varicose veins. COMPRESSIBILITY: Non-compressible segments corresponding to thrombus FLOW: Areas of no flow corresponding to thrombus OTHER: Patent varicose vein mid lateral thigh measures 5.8 mm. Varicose vein prox lateral lower leg measures 5.5 mm. CONCLUSION: Post ablation occlusion of treated varicose veins with incompetent residual varicose veins measuring up to 5.8 mm. No deep vein thrombus Dictated by: Francisco Whitkaer MD on 09/25/2023 at 11:48 Approved by: Francisco Whitaker MD on 09/25/2023 at 11:49
--- OUTSIDE RECORDS SUMMARY | 2023-09-25 11:38 | XMS_ITS | CCD ---
Author Organization [facility] Care Team Providers Care Drapery Cutter Name Role Phone JERICHO QURESHI JR Attending Unavailable JERICHO QURESHI JR Consulting Unavailable JERICHO QURESHI JR Admitting Unavailable [facility] Primary Care Unava ilable CHELSEA [...] Active Start: 01-17-2023 take 1 capsule by [facility] once daily Omeprazole 40 MG 1 capsule 30 minutes before morning meal Orally Once a day for 30 days Jan, Active take 1 capsule by [facility] every twenty-four hours Omeprazole 20 [...] Other longterm (current) drug therapy; Translations: [OTH SENIOR CARE CURRENT DRUG THERAPY] Onset: 06-04-2020 Episodic Other [...] [Mass/Vol] 4.0 g/dL Normal 3.2-5.3 [facility] Comment on above: Performed By: #### C MP #### [facility] ([id number]) [address], [address] [place] [address] ALP [Catalytic activity/Vol] 92 U/L Normal 39-130 [facility] Comment on above: Performed By: #### C MP #### [facility] ([id number]) [address], [address] [place] [address] ALT [Catalytic activity/Vol] 23 U/L Normal 0-31 [facility] Comment on above: Performed By: #### C MP #### [facility] ([id number]) [address], [address] [place] [address] Anion gap [Moles/Vol] 9 mmol/L Normal 5-15 [facility] Comment on above: Performed By: #### C MP #### [facility] ([id number]) [address], [address] [place] [address] AST [Catalytic activity/Vol] 24 U/L Normal 0-41 [facility] Comment on above: Performed By: #### C MP #### [facility] ([id number]) [address], [address] [place] [address] Bilirubin [Mass/Vol] 1.0 mg/dL Normal 0.3-1.[address] [facility] Comment on above: Performed By: #### C MP #### [facility] ([id number]) [address], [address] [place] [address] Calcium [Mass/Vol] 9.0 mg/dL Normal 8.5-10.5 [facility] Comment on above: Performed By: #### C MP #### [facility] ([id number]) [address], [address] [place] [address] Chloride [Moles/Vol] 103 mmol/L Normal 98-[address] [facility] Comment on above: Performed By: #### C MP #### [facility] ([id number]) [address] [place] [address] CO2 [Moles/Vol] 27 mmol/L Normal 22-32 [facility] Comment on above: Performed By: #### C MP #### [facility] ([id number]) [address] [place] [address] Creatinine [Mass/Vol] 0.53 mg/dL Normal 0.40-1.00 [facility] Comment on above: Result Comment: METH OD TRACEABLE TO IDMS STANDARD Performed By: #### C MP #### [facility] ([id number]) [address] [place] [address] eGFR (CKD-EPI) NON-RACE DEPENDENT >90 Normal >59 [facility] Comment on above: Result Comment: Reported eGFR is based on the CKD-EPI 2020 equation that does not use a race coefficient. Performed By: #### C MP #### [facility] ([id number]) [address] [place] [address] Glucose [Mass/Vol] 170 mg/dL High 65-99 [facility] Comment on above: Performed By: #### C MP #### [facility] ([id number]) [address] [place] [address] Potassium [Moles/Vol] 4.2 mmol/L Normal 3.5-5.0 [facility] Comment on above: Performed By: #### C MP #### [facility] ([id number]) [address] [place] [address] Protein [Mass/Vol] 7.2 g/dL Normal 6.0-8.0 [facility] Comment on above: Performed By: #### C MP #### [facility] ([id number]) [address] [place] [address] Sodium [Moles/Vol] 139 mmol/L Normal 134-146 [facility] Comment on above: Performed By: #### C MP #### [facility] ([id number]) [address] [facility] [address] [place] [address] Urea nitrogen [Mass/Vol] 15 mg/dL Normal 5-23 [facility] Comment on above: Performed By: #### C MP #### [facility] ([id number]) [address] [facility] [address] [place] [address] HGB A1C (GLYCO-HGB)on 2023 Glucose [Mass/Vol] 186 mg/dL Normal [facility] Comment on above: Performed By: #### C MP #### [facility] ([id number]) [facility] [address] [place] [address] HbA1c (Bld) [Mass fraction] 8.1 % High 4.4-5.6 [facility] Comment on above: Result Comment: NOTE ADA Guidelines Result HgbA1c Normal : less than 5.7 % Prediabetes : 5.7 % to 6.4 % Diabetes : > 6.4 % Use with caution in patients with abnormal hemoglobin variants as the half-life of red blood cells and in vivo glycation rates are affected. Performed By: #### C MP #### [facility] ([id number]) [address] [facility] [address] [place] [address] Vital Signs Date Time Vital Sign Value Performing Clinician Jacque alcala 02-21-2023 06:46-0400 Body height 156.21 cm DO Lalita Rumschlag Work Phone: [facility] 02-21-2023 06:46-0400 Body weight 74.84 kg DO Lalita Rumschlag Work Phone: [facility] 01-17-2023 11:00-0400 Body height 154.94 cm Nicholas Anneanisha Other [email or web address] Other 01-17-2023 11:00-0400 Body mass index (BMI) [Ratio] 49.5 kg/m2 Nicholas Anneanisha Other [email or web address] Other 01-17-2023 11:00-0400 Body weight 118.84 kg Nicholas Arteaga Other [email or web address] Other 01-17-2023 11:00-0400 Diastolic blood pressure 81 mm[Hg] Nicholas Jasmnyeclover Other [email or web address] Other 01-17-2023 11:00-0400 Systolic blood pressure 155 mm[Hg] Nicholas Dayanaanisha Other [email or web address] Other 07-20-2021 14:45-0500 Body weight 114.76 kg Jericho Qureshi Other [email or web address] Other Encounters Encounter Date Encounter Type Care Provider Facility Start: 06-24-2023 End: 06-25-2023 ambulatory LALITA WESTBROOK [facility] Start: 06-23-2023 End: 06-24-2023 ambulatory LALITA WESTBROOK [facility] Start: 06-22-2023 End: 06-23-2023 ambulatory TRINA DANIEL [facility] Start: 06-19-2023 End: 06-19-2023 [facility] Start: 06-06-2023 Niya Gutierrez RN [facility] Start: 02-21-2023 End: 02-21-2023 ambulatory Stephen Wilkins Facility:[facility] Start: 02-21-2023 End: 02-21-2023 ambulatory DO Lalita Rumschlag Work Phone: [facility] Work Phone: Start: 02-21-2023 End: 02-21-2023 Patient encounter procedure DO Lalita Rumschlag Work Phone: [facility] Work Phone: Start: 01-17-2023 End: 01-17-2023 ambulatory Nicholas Arteaga Other [email or web address] Other Start: 01-17-2023 [facility] visit new patient Nicholas Arteaga [facility] Start: 07-20-2021 End: 07-20-2021 ambulatory Jericho Qureshi Other [email or web address] Other Start: 07-20-2021 Office outpatient visit 25 minutes Jericho [facility] Start: 06-03-2020 End: 06-03-2020 ambulatory JERICHO QURESHI Facility: Procedures Date Procedure Procedure Detail Performing Clinician Start: 02-21-2023 Esophageal manometry DO Lalita Rumschlag Work Phone: Plan of Treatment Date Care Activity Detail Author Start: 03-22-2024 Tobacco Screening Tobacco Screening [facility] Start: 02-09-2024 Adult BMI Screening Adult BMI Screening [facility] Start: 09-20-2023 End: 09-20-2023 Patient encounter procedure 09/20/2023 2:00 PM EDT Office Visit [facility] [address] [place] [id number] Sia Grider, PASoledadC [address] [place] [address] [facility] Start: 02-21-2023 [facility] Start: 01-13-2023 COVID-19 Vaccine ( season) COVID-19 Vaccine ( season) [facility] Start: 01-13-2023 Influenza vaccination Influenza Vaccine [facility] Start: 2013 Administration of varicella zoster vaccine Zoster (Shingles) Vaccine (1 of 2) [facility] Start: 1984 Screening for malignant neoplasm of cervix Pap Smear [facility] Start: 1982 DTaP,Tdap and Td Vaccines (1 - Tdap) DTaP,Tdap and Td Vaccines (1 - Tdap) [facility] Start: 1981 Adult BMI Follow Up Plan Adult BMI Follow Up Plan [facility] Start: 1975 Depression Screening Depression Screening [facility] Immunizations Immunization Date Immunization Notes Care Provider Fa cility 07-22-2020 COVID-19 Vaccine, vector-nr, rS-Ad26, PF, 0.5mL Pauly Gutierrez RN [facility] 03-11-2020 influenza virus vaccine, unspecified formulation Pauly Gutierrez RN [facility] Payers Date Payer Category Payer Medicare [id number] 2023 Medicare [id number] 2023 Self-pay 2022 Medicare MEDICARE MEDICAR E PART A & B [id number] 2022-Present [phone] [address] [place] [address] [id number] 1965 Unknown [id number] 1965 Unknown [id number] 1965 Unknown [id number] 1965 Unknown [id number] 1965 Unknown [id number] 1959 Unknown [id number] Medicaid [id number] Unknown [id number] Social History Date Type Detail Facility Start: 05-29-2020 End: 03-22-2023 Sex Assigned At [facility] [employer] Other Start: 1965 Sex Assigned At Female F [facility] Start: 03-30-2022 Tobacco smoking stat [facility] Never smoked tobacco [facility] Start: 03-30-2022 Tobacco use and exposure Smokeless tobacco non-user [facility] Start: 03-22-2023 Alcohol intake Current drinke r of alcohol (finding) [facility] Start: 05-29-2020 End: 03-22-2023 History of Social function [facility] Childcare Unknown [facility] Start: 03-01-2017 Alcohol Comment [facility] Start: 1965 Sex Assigned At Not on file P [facility] Goals Date Patient Goal Desired [...] has been effective. documented in this encounter [employer] [facility] Telephone encounter Note 06-06-2023 Telephone Encounter [...] that the daily does has been effective. [employer] [facility] Evaluation note 01-17-2023 Note Date & [...] describes a poking pain in her chest. [email or web address] Other Evaluation note 07-20-2021 Note Date & Type Note Facility 07-20-2021 Evaluation note Encounter Date Diagnosis Assessment Notes Jul, GERD (gastroesopha geal reflux disease) (ICD-10 - K21.9) Jul, Abdominal pain (ICD-10 - R10.9) severe sharp pain imaging ordered and medication started Jul, Black stools (ICD-10 - K92.1) [email or web address] Other Clinical Note 06-03-2020 Note Date & [...] in 5 years based on family history. [facility] Signed and Approved by: JERICHO QURESHI JR 06/10/2020 11:26:00 [facility] Evaluation note Note Date & Type Note Facility Evaluation note No assessment information [facility] Work Phone: History general Narrative - Reported Note Date & Type Note Facility History general Narrative - Reported Type Medical History GERD Medical History esophageal spasm Surgical History appendectomy Surgical History C section [email or web address] Other History general Narrative - Reported Note Date & Type Note Facility History general Narrative - Reported Type Medical History GERD Medical History esophageal spasm Surgical History appendectomy Surgical History C section Surgical History ablasion-righ and left knee Hospitalization History see above [email or web address] Other Instructions Note Date & Type Note [...] AUTHOR AUTHOR'S ORGANIZ ATION 03/19/2023 [facility] DATE CREATED AUTHOR AUTHOR'S ORGANIZ ATION 06/26/2023 [facility] REASON FOR VISIT (unrecogniz ed section and content) Reason Onset Date Comments Med Refill 06/06/2023 Care Teams (unrecognized sec tion and content) Team Status: Active Member Role Status Dates Lalita Westbrook DO Primary Care Provider Active Team Status: Inactive Member Role Status Dates Stephen Wilkins MD Attending Provider Active Lalita Westbrook DO Primary Care Provider Active Drapery Cutter Relationship Specialty Start Date End Date Lalita Westbrook DO [address] [place] [address] PCP - General Family Medicine 11/26/19 FOR [...] BE BASED ON THE PRIMARY CLINICAL RECORDS. [facility] [employer] [facility]. provides no warranty or guarantee of the accuracy or completeness of information in this document.
== END 2023-09-25 11:09 | disposition home or self-care (01) ==
LOC: VC 11:23
PROVIDERS: PCP Radiology Diagnostic Radiology; Visit Provider Radiology Diagnostic Radiology
DX: I80.01 Phlebitis and thrombophlebitis of superficial vessels of right lower extremity (principal)
CPT/HCPCS: 93971; G0463

== ENCOUNTER 2023-10-02 12:57 | Outpatient (OUT) | payer MEDICARE, MEDICAID, SELFPAY ==
--- NOTE | 2023-10-02 | VEIN_ITS ---
[address] [address] Patient Name: KATIANA MARISCAL MRN: [id number] date: 1965 Sex: F Assigned Patient Location: Current Patient Location: Accession/Order Number: [id number] Exam Date: 10/02/2023 13:10 Report Date: 10/02/2023 15:33 At the request of: JERICHO MAS Procedure: VC INJ Foam Sclerosant WUS ANTISQUEAK WORKER PROCEDURE: VC INJ Foam Sclerosant WUS ANTISQUEAK WORKER HISTORY: Pain due to varicose veins of bilateral legs I83.813 Pre-operative Diagnosis: CEAP class C3 venous insufficiency with pain, tenderness, edema and incompetent branch saphenous vein(s), chronic venous insufficiency left leg secondary to venous incompetence Post-operative Diagnosis: CEAP class C3 venous insufficiency with pain, tenderness, edema and incompetent branch saphenous vein(s), chronic venous insufficiency left leg secondary to venous incompetence Procedure Performed: 1. Ultrasound-guided microfoam chemical ablation with Varithenaregistered 2. Intraoperative ultrasound guidance Physician: Graham Sampson M.D. Anesthesia: None Indications for Procedure: 58 year old female. Symptoms including lower extremity dilated bulging veins, swelling, heaviness, aching for many years despite conservative medical therapy including medical compression stockings, exercise and analgesics. Prior procedures include endovenous laser ablation and microfoam chemical ablation. Multiple incompetent varicosities of the left leg. Duplex scan showed reflux and enlarged diameters up to 7 mm. The patient underwent informed consent including management options where the complications of infection, bleeding, pain, and skin injury were discussed. Particular attention was spent discussing thrombus extension and deep vein thrombosis as well as the possibility of pulmonary embolus and treatment with oral or injectable blood thinners. Procedure: The patient walked to the procedure room. All applicable staff donned appropriate apparel. A procedure timeout was performed to confirm correct patient, correct extremity, correct procedure, and correct room set-up including presence of all applicable supplies, devices, and drugs. A duplex ultrasound, performed by myself confirmed the location and incompetence of branch saphenous varicosities and their course was marked on the skin together with the dilated tributaries. The extent of treatment of the vein and the associated varicosities was determined through ultrasound mapping. The skin was prepped and then punctured with a butterfly needle and advanced under ultrasound guidance. The Varithenaregistered canister was activated and the canister was primed and purged as required in the instructions for use. Varithenaregistered was drawn into a sterile syringe. Varithenaregistered was slowly administered at 0.5-1.0 cc/second with close observation by ultrasound of its course in the vessels. Total volume utilized was: 15 mL (8 mL into a 5 mm varicosity proximal lateral lower left leg; 7 mL into a 7 mm varicosity lateral to the knee). Following administration of Varithenaregistered the leg was elevated and the patient was asked to repeatedly dorsiflex the ankle to limit flow of Varithenaregistered into perforating veins. Once appropriate spasm had been confirmed in the treated veins, the vascular catheter was removed from the leg and light pressure was applied over the puncture site for hemostasis. The common femoral and deep superficial veins were then evaluated for flow and compressibility prior to dressing placement. The lower extremity was kept elevated at 45 degrees above the horizontal and cording material was applied over the saphenous segments and tributaries to allow for eccentric compression over the target vessels including the targeted saphenous vein(s). A multilayer dressing was applied consisting of foam pads, coban and thigh-high 20-30 mm Hg compression elastic support hose were placed on the patient. The leg was lowered only after compression had been applied and the patient was immediately ambulatory. The patient ambulated 10 minutes under supervision and was without apparent concerns at time of release. Post-care instructions include advising patient to keep post-treatment bandages in place and dry for 48 hours, avoid extended periods of inactivity, avoid heavy exercise for one week, wear compression stockings on the treated leg continuously for two weeks, to walk daily for 10 minutes over the next month. The patient was instructed to take an anti-inflammatory medicine as needed and to follow up for color duplex scan of the Saphenous veins, the treated branch saphenous varicosities, the adjacent deep veins, and additional treatment within 7 days. PERSONNEL: Mello Ko RN Electronically authenticated by: GRAHAM SAMPSON Date: 10/02/2023 15:33
== END 2023-10-02 12:58 | disposition home or self-care (01) ==
LOC: VC 12:57
PROVIDERS: PCP Radiology Diagnostic Radiology; Visit Provider Radiology Diagnostic Radiology
DX: I83.813 Varicose veins of bilateral lower extremities with pain (principal)
CPT/HCPCS: 36466

== ENCOUNTER 2023-10-10 12:57 | Outpatient (OUT) | payer MEDICARE, MEDICAID, SELFPAY ==
--- NOTE | 2023-10-10 12:58 | VEIN_ITS ---
Patient Name: KATIANA MARISCAL MR#: [id number] : 1965 Exam Date: 10/10/2023 Ordering Doctor: DR JERICHO MAS M.D. RADIOLOGY REPORT PROCEDURE: [facility] - OFFICE VISIT FOLLOW UP [facility] PROGRESS NOTES: The patient reports improvement in leg symptoms. There has been interval reduction in varicosities. The patient has followed our recommendations to walk 20-30 minutes once or twice per day since the procedure. Physical exam demonstrates decrease in varicosities of the leg. Persistent varicosities are identified along the legs bilaterally. Review of the ultrasound performed the same day demonstrates occlusive thrombus extending throughout the treated vein(s), see separate report, consistent with a successful ablation. No thrombus extending into or beyond the saphenofemoral junction. The patient expressed a desire to proceed with treatment of remaining incompetent varicosities. The patient was informed that treatment was a process and would require approximately 4 procedures/sessions. [facility]: 1. Successful ablation of the left leg treated branch saphenous vein(s). 2. Persistent bilateral varicose veins and lower extremity symptoms. PLAN: Microfoam chemical ablation of right leg incompetent branch saphenous varicosities. Nurse notes, history and physical were reviewed and confirmed, see attached forms. The nurse was present throughout the physical exam and consultation Dictated by: Graham Sampson M.D. on 10/10/2023 at 14:38 Approved by: Graham Sampson M.D. on 10/10/2023 at 14:39
--- NOTE | 2023-10-10 12:58 | VEIN_ITS ---
Patient Name: KATIANA MARISCAL MR#: [id number] : 1965 Exam Date: 10/10/2023 Ordering Doctor: DR JERICHO MAS M.D. RADIOLOGY REPORT PROCEDURE: VC EXT VENOUS LT LIMITED COMPARISON: VC EXT VENOUS LT LIMITED, 09/11/2023. INDICATIONS: I80.02 Phlebitis of superficial veins of lt lower extremity TECHNIQUE: Lower extremity marcum scale and Duplex Doppler evaluation of the deep venous system from the inguinal ligament through the calf veins. FINDINGS: REGION: Left lower extremity. THROMBI: Negative for DVT. Varithena induced thrombus visualized at prox/lat calf and lateral knee. COMPRESSIBILITY: Non-compressible segments corresponding to thrombus FLOW: Areas of no flow corresponding to thrombus OTHER: Multiple varicose veins remain. The largest is at mid/med thigh 5.0mm with 1.7s reflux. CONCLUSION: 1. Successful post ablation occlusion of left leg treated branch saphenous varicosities. Dictated by: Graham Sampson M.D. on 10/10/2023 at 14:37 Approved by: Graham Sampson M.D. on 10/10/2023 at 14:37
== END 2023-10-10 12:58 | disposition home or self-care (01) ==
LOC: VC 12:57
PROVIDERS: PCP Radiology Diagnostic Radiology; Visit Provider Radiology Diagnostic Radiology
DX: I80.02 Phlebitis and thrombophlebitis of superficial vessels of left lower extremity (principal)
CPT/HCPCS: 93971; G0463

== ENCOUNTER 2023-10-16 10:49 | Outpatient (OUT) | payer MEDICARE, MEDICAID, SELFPAY ==
--- NOTE | 2023-10-16 11:12 | VEIN_ITS ---
[address] [address] Patient Name: KATIANA MARISCAL MRN: [id number] date: 1965 Sex: F Assigned Patient Location: Current Patient Location: Accession/Order Number: [id number] Exam Date: 10/16/2023 11:15 Report Date: 10/16/2023 13:14 At the request of: JERICHO MAS Procedure: VC INJ Foam Sclerosant WUS ELECTRICAL LOGGING ENGINEER PROCEDURE: VC INJ Foam Sclerosant WUS ELECTRICAL LOGGING ENGINEER HISTORY: I83.813 Bilateral leg painful varicose veins Pre-operative Diagnosis: CEAP class C3 venous insufficiency with pain, tenderness, edema and incompetent branch saphenous vein(s), chronic venous insufficiency right leg secondary to venous incompetence Post-operative Diagnosis: CEAP class C3 venous insufficiency with pain, tenderness, edema and incompetent branch saphenous vein(s), chronic venous insufficiency right leg secondary to venous incompetence Procedure Performed: 1. Ultrasound-guided microfoam chemical ablation with Varithenaregistered 2. Intraoperative ultrasound guidance Physician: Graham Sampson M.D. Anesthesia: None Indications for Procedure: 58 year old female. Symptoms including lower extremity pain, swelling, dilated bulging veins for many years despite conservative medical therapy including medical compression stockings, exercise and analgesics. Prior procedures include endovenous laser ablation and microfoam chemical ablation. Multiple incompetent varicosities of the right leg. Duplex scan showed reflux and enlarged diameters up to 7 mm. The patient underwent informed consent including management options where the complications of infection, bleeding, pain, and skin injury were discussed. Particular attention was spent discussing thrombus extension and deep vein thrombosis as well as the possibility of pulmonary embolus and treatment with oral or injectable blood thinners. Procedure: The patient walked to the procedure room. All applicable staff donned appropriate apparel. A procedure timeout was performed to confirm correct patient, correct extremity, correct procedure, and correct room set-up including presence of all applicable supplies, devices, and drugs. A duplex ultrasound, performed by myself confirmed the location and incompetence of branch saphenous varicosities and their course was marked on the skin together with the dilated tributaries. The extent of treatment of the vein and the associated varicosities was determined through ultrasound mapping. The skin was prepped and then punctured with a butterfly needle and advanced under ultrasound guidance. The Varithenaregistered canister was activated and the canister was primed and purged as required in the instructions for use. Varithenaregistered was drawn into a sterile syringe. Varithenaregistered was slowly administered at 0.5-1.0 cc/second with close observation by ultrasound of its course in the vessels. Total volume utilized was: 15 mL into a 7 mm extensively branching varicosity within the proximal medial lower right leg. Following administration of Varithenaregistered the leg was elevated and the patient was asked to repeatedly dorsiflex the ankle to limit flow of Varithenaregistered into perforating veins. Once appropriate spasm had been confirmed in the treated veins, the vascular catheter was removed from the leg and light pressure was applied over the puncture site for hemostasis. The common femoral and deep superficial veins were then evaluated for flow and compressibility prior to dressing placement. The lower extremity was kept elevated at 45 degrees above the horizontal and cording material was applied over the saphenous segments and tributaries to allow for eccentric compression over the target vessels including the targeted saphenous vein(s). A multilayer dressing was applied consisting of foam pads, coban and thigh-high 20-30 mm Hg compression elastic support hose were placed on the patient. The leg was lowered only after compression had been applied and the patient was immediately ambulatory. The patient ambulated 10 minutes under supervision and was without apparent concerns at time of release. Post-care instructions include advising patient to keep post-treatment bandages in place and dry for 48 hours, avoid extended periods of inactivity, avoid heavy exercise for one week, wear compression stockings on the treated leg continuously for two weeks, to walk daily for 10 minutes over the next month. The patient was instructed to take an anti-inflammatory medicine as needed and to follow up for color duplex scan of the Saphenous veins, the treated branch saphenous varicosities, the adjacent deep veins, and additional treatment within 7 days. PERSONNEL: Mello Ko RN Electronically authenticated by: GRAHAM SAMPSON Date: 10/16/2023 13:14
== END 2023-10-16 10:50 | disposition home or self-care (01) ==
LOC: VC 10:50
PROVIDERS: PCP Radiology Diagnostic Radiology; Visit Provider Radiology Diagnostic Radiology
DX: I83.813 Varicose veins of bilateral lower extremities with pain (principal)
CPT/HCPCS: 36466

== ENCOUNTER 2023-10-23 09:53 | Outpatient (OUT) | payer MEDICARE, MEDICAID, SELFPAY ==
--- NOTE | 2023-10-23 09:58 | VEIN_ITS ---
Patient Name: KATIANA MARISCAL MR#: [id number] : 1965 Exam Date: 10/23/2023 Ordering Doctor: DR FRANCISCO WHITAKER M.D. RADIOLOGY REPORT PROCEDURE: VC EXT VENOUS RT LMTD COMPARISON: VC EXT VENOUS RT LMTD, 09/25/2023. VC EXT VENOUS RT LMTD, 08/28/2023. INDICATIONS: Phlebitis of superficial veins of rt lower extremity I80.01 TECHNIQUE: Lower extremity marcum scale and Duplex Doppler evaluation of the deep venous system from the inguinal ligament through the calf veins. FINDINGS: REGION: Right lower extremity. THROMBI: Negative for DVT. Varithena induced thrombus visualized at prox/med calf. COMPRESSIBILITY: Non-compressible segments corresponding to thrombus FLOW: Areas of no flow corresponding to thrombus OTHER: Patent varicose vein remains at medial knee that measures 5.5mm with 0.9s reflux. CONCLUSION: Post ablation occlusion of treated right leg incompetent varicose veins. Residual bilateral incompetent varicose veins. Dictated by: Francisco Whitaker MD on 10/23/2023 at 10:13 Approved by: Francisco Whitaker MD on 10/23/2023 at 10:14
--- NOTE | 2023-10-23 09:58 | VEIN_ITS ---
Patient Name: KATIANA MARISCAL MR#: [id number] : 1965 Exam Date: 10/23/2023 Ordering Doctor: DR FRANCISCO WHITAKER M.D. RADIOLOGY REPORT PROCEDURE: [facility] EST [facility] - OFFICE VISIT FOLLOW UP COMPARISON: [facility] EST LMTD, 10/10/2023. [facility] EST LMTD, 09/25/2023. PROGRESS NOTES: The patient reports some numbness of the right leg. The patient otherwise had no problems following micro chemical ablation of right leg incompetent varicose veins. The patient has worn her compression stocking. The patient has tried exercise to the best of her ability. Physical exam demonstrates multiple thrombosed varicose veins. No erythema or warmth to suggest cellulitis or thrombophlebitis. No active ulceration. Multiple patent varicose veins remain on both legs. 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 I discussed with the patient this likely would resolve over the course of the next 6-12 months but there was a 25% chance that this would be prominent usually resulting in an area of persistent numbness. Review of the ultrasound performed the same day demonstrates occlusive thrombus extending throughout the treated right leg veins. No deep vein thrombus period bilateral incompetent varicose veins. The patient expressed a desire to proceed with treatment of incompetent left leg varicose veins followed by injection sclerotherapy of reticular and spider veins. VEIN/[facility] EST LMTD IMPRESSION: 1. Successful ablation of treated incompetent right leg varicose veins 2. Persistent bilateral incompetent varicose, reticular and spider veins. PLAN: Micro foam chemical ablation left leg varicose veins Nurse notes, history and physical were reviewed and confirmed, see attached forms. The nurse was present throughout the physical exam and consultation Dictated by: Francisco Whitaker MD on 10/23/2023 at 10:36 Approved by: Francisco Whitaker MD on 10/23/2023 at 10:39
--- OUTSIDE RECORDS SUMMARY | 2023-10-23 10:10 | XMS_ITS | CCD ---
Author Organization [facility] Care Team Providers Care Architectural Drafter Name Role Phone JERICHO QURESHI JR Attending Unavailable JERCIHO QURESHI JR Consulting Unavailable JERICHO QURESHI JR Admitting Unavailable [facility] Primary Care Unava ilable CHELSEA LEAVITT Consulting Unavailable Jericho Qureshi Unavailable Nicholas Artegaa Unavailable MD Stephen Wilkins Attending Provider DO Lalita Westbrook Primary Care Provider Stephen Wilkins Admitting Unavailabl e Stephen Wilkins Attending Unavailabl e Rumschlag, Lalita Primary Care Unavailable Rumschlag DO, Lalita K Primary Care Provider RUMANAHIG, LALITA K Primary Care Unavailable TRINA DANIEL [...] Active Start: 01-17-2023 take 1 capsule by [facility] once daily Omeprazole 40 MG 1 capsule 30 minutes before morning meal Orally Once a day for 30 days Jan, Active take 1 capsule by [facility] every twenty-four hours Omeprazole 20 [...] 07-20-2021 Episodic Other aftercare (1 source) 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 ([id number]) [address], [address] [place] [address] ALP [Catalytic activity/Vol] 92 U/L Normal 39-[address] [facility] Comment on above: Performed By: #### C MP #### [facility] ([id number]) [address], [address] [place] [address] ALT [Catalytic activity/Vol] 23 U/L Normal 0-[address] [facility] Comment on above: Performed By: #### C MP #### [facility] ([id number]) [address], [address] [place] [address] Anion gap [Moles/Vol] 9 mmol/L Normal 5-15 [facility] Comment on above: Performed By: #### C MP #### [facility] ([id number]) [address], [address] [place] [address] AST [Catalytic activity/Vol] 24 U/L Normal 0-[address] [facility] Comment on above: Performed By: #### C MP #### [facility] ([id number]) [address], [address] [place] [address] Bilirubin [Mass/Vol] 1.0 mg/dL Normal 0.3-1.2 [facility] Comment on above: Performed By: #### C MP #### [facility] ([id number]) [address], [address] [place] [address] Calcium [Mass/Vol] 9.0 mg/dL Normal 8.5-10.5 [facility] Comment on above: Performed By: #### C MP #### [facility] ([id number]) [address], [address] [place] [address] Chloride [Moles/Vol] 103 mmol/L Normal 98-109 [facility] Comment on above: Performed By: #### C MP #### [facility] ([id number]) [address], [address] [place] [address] CO2 [Moles/Vol] 27 mmol/L Normal 22-[address] [facility] Comment on above: Performed By: #### C MP #### [facility] ([id number]) [address], [address] [place] [address] Creatinine [Mass/Vol] 0.53 mg/dL Normal 0.40-1.00 [facility] Comment on above: Result Comment: METH OD TRACEABLE TO IDMS STANDARD Performed By: #### C MP #### [facility] ([id number]) [address], [address] [place] [address] eGFR (CKD-EPI) NON-RACE DEPENDENT >90 Normal >[address] [facility] Comment on above: Result Comment: Reported eGFR is based on the CKD-EPI 2020 equation that does not use a race coefficient. Performed By: #### C MP #### [facility] ([id number]) [address], [address] [place] [address] Glucose [Mass/Vol] 170 mg/dL High 65-99 [facility] Comment on above: Performed By: #### C MP #### [facility] ([id number]) [address], [address] [place] [address] Potassium [Moles/Vol] 4.2 mmol/L Normal 3.5-5.0 [facility] Comment on above: Performed By: #### C MP #### [facility] ([id number]) [address], [address] [place] [address] Protein [Mass/Vol] 7.2 g/dL Normal 6.0-8.0 [facility] Comment on above: Performed By: #### C MP #### [facility] ([id number]) [address], [address] [place] [address] Sodium [Moles/Vol] 139 mmol/L Normal 134-146 [facility] Comment on above: Performed By: #### C MP #### [facility] ([id number]) [address] [place] [address] Urea nitrogen [Mass/Vol] 15 mg/dL Normal 5-[address] [facility] Comment on above: Performed By: #### C MP #### [facility] ([id number]) [address] [place] [address] HGB A1C (GLYCO-HGB)on 2023 Glucose [Mass/Vol] 186 mg/dL Normal [facility] Comment on above: Performed By: #### C MP #### [facility] ([id number]) [address] [place] [address] HbA1c (Bld) [Mass fraction] 8.1 % High 4.4-5.[address] [facility] Comment on above: Result Comment: NOTE ADA Guidelines Result HgbA1c Normal : less than 5.7 % Prediabetes : 5.7 % to 6.4 % Diabetes : > 6.4 % Use with caution in patients with abnormal hemoglobin variants as the half-life of red blood cells and in vivo glycation rates are affected. Performed By: #### C MP #### [facility] ([id number]) [address], [address] [place] [address] Vital Signs Date Time Vital Sign Value Performing Clinician Jacque alcala 02-21-2023 06:46-0400 Body height 156.21 cm DO [employer] Work Phone: [facility] 02-21-2023 06:46-0400 Body weight 74.84 kg DO [employer] Work Phone: [facility] 01-17-2023 11:00-0400 Body height 154.94 cm Nicholas Anneanisha Other [employer] Other 01-17-2023 11:00-0400 Body mass index (BMI) [Ratio] 49.5 kg/m2 Nicholas Arteaga Other [employer] Other 01-17-2023 11:00-0400 Body weight 118.84 kg Nicholas Arteaga Other [employer] Other 01-17-2023 11:00-0400 Diastolic blood pressure 81 mm[Hg] Nicholas Anneanisha Other [employer] Other 01-17-2023 11:00-0400 Systolic blood pressure 155 mm[Hg] Nicholas Jenni Other [employer] Other 07-20-2021 14:45-0500 Body weight 114.76 kg Jericho Qureshi Other [employer] Other Encounters Encounter Date Encounter Type Care Provider Facility Start: 06-24-2023 End: 06-25-2023 ambulatory LALITA [facility] Start: 06-23-2023 End: 06-24-2023 ambulatory LALITA [facility]OOK [facility] Start: 06-22-2023 End: 06-23-2023 ambulatory TRINA DANIEL [facility] Start: 06-19-2023 End: 06-19-2023 Emergency department patient visit LALITA K [facility] Start: 06-06-2023 Niya Gutierrez RN [facility] Start: 02-21-2023 End: 02-21-2023 ambulatory Stephen Wilkins Facility:[facility] Start: 02-21-2023 End: 02-21-2023 ambulatory DO Lalita Rumschlag Work Phone: [facility] Work Phone: Start: 02-21-2023 End: 02-21-2023 Patient encounter procedure DO Lalita Rumschlag Work Phone: [facility] Work Phone: Start: 01-17-2023 End: 01-17-2023 ambulatory Nicholas Arteaga Other [employer] Other Start: 01-17-2023 [facility] visit new patient Nicholas Arteaga [facility] Start: 07-20-2021 End: 07-20-2021 ambulatory Jericho Qureshi Other [employer] Other Start: 07-20-2021 Office outpatient visit 25 minutes Jericho Qureshi [facility] Start: 06-03-2020 End: 06-03-2020 ambulatory JERICHO QURESHI Facility:[facility] Procedures Date Procedure Procedure Detail Performing Clinician Start: 02-21-2023 Esophageal manometry DO Lalita Rumschlag Work Phone: Plan of Treatment Date Care Activity Detail Author Start: 03-22-2024 Tobacco Screening Tobacco Screening [facility] Start: 02-09-2024 Adult BMI Screening Adult BMI Screening [facility] Start: 09-20-2023 End: 09-20-2023 Patient encounter procedure 09/20/2023 2:00 PM EDT Office Visit [facility] [address] [place] [id number] Sia Grider PA-C [address] [place] [address] [facility] Start: 02-21-2023 [facility] Start: 01-13-2023 COVID-19 Vaccine ( season) COVID-19 Vaccine ( season) [facility] Start: 01-13-2023 Influenza vaccination Influenza Vaccine [facility] Start: 2013 Administration of varicella zoster vaccine Zoster (Shingles) Vaccine (1 of 2) [facility] Start: 1984 Screening for malignant neoplasm of cervix Pap Smear [facility] Start: 1982 DTaP,Tdap and Td Vaccines (1 - Tdap) DTaP,Tdap and Td Vaccines (1 - Tdap) [facility] Start: 1981 Adult BMI Follow Up Plan Adult BMI Follow Up Plan [facility] Start: 1975 Depression Screening Depression Screening [facility] Immunizations Immunization Date Immunization Notes Care Provider Fa cility 07-22-2020 COVID-19 Vaccine, vector-nr, rS-Ad26, PF, 0.5mL Pauly Gutierrez RN [facility] 03-11-2020 influenza virus vaccine, unspecified formulation Pauly Gutierrez RN [facility] Payers Date Payer Category Payer Medicare [id number] 2023 Medicare [id number] 2023 Self-pay 2022 Medicare MEDICARE MEDICAR E PART A & B [id number] 2022-Present [phone] [address] [place] [address] [id number] 1965 Unknown [id number] 1965 Unknown [id number] 1965 Unknown [id number] 1965 Unknown [id number] 1965 Unknown [id number] 1959 Unknown [id number] Medicaid [id number] Unknown [id number] Social History Date Type Detail Facility Start: 05-29-2020 End: 03-22-2023 Sex Assigned At [facility] [employer] Other Start: 1965 Sex Assigned At Female F [facility] Start: 03-30-2022 Tobacco smoking stat [facility] Never smoked tobacco [facility] Start: 03-30-2022 Tobacco use and exposure Smokeless tobacco non-user [facility] Start: 03-22-2023 Alcohol intake Current drinke r of alcohol (finding) [facility] Start: 05-29-2020 End: 03-22-2023 History of Social function [facility] Childcare Unknown [facility] Start: 03-01-2017 Alcohol Comment occasional [facility] Start: 1965 Sex Assigned At Not on file P [facility] Goals Date Patient Goal Desired Activity [...] has been effective. documented in this encounter [facility] Telephone encounter Note 06-06-2023 Telephone Encounter [...] that the daily does has been effective. [facility] Evaluation note 01-17-2023 Note Date & [...] describes a poking pain in her chest. [facility] Other Evaluation note 07-20-2021 Note Date & Type Note Facility 07-20-2021 Evaluation note Encounter Date Diagnosis Assessment Notes Jul, GERD (gastroesopha geal reflux disease) (ICD-10 - K21.9) Jul, Abdominal pain (ICD-10 - R10.9) severe sharp pain imaging ordered and medication started Jul, Black stools (ICD-10 - K92.1) [facility] Other Clinical Note 06-03-2020 Note Date & [...] in 5 years based on family history. [facility] Signed and Approved by: JERICHO QURESHI JR 06/10/2020 11:26:00 [facility] Evaluation note Note Date & Type Note Facility Evaluation note No assessment information [facility] Work Phone: History general Narrative - Reported Note Date & Type Note Facility History general Narrative - Reported Type Medical History GERD Medical History esophageal spasm Surgical History appendectomy Surgical History C section [employer] Other History general Narrative - Reported Note Date & Type Note Facility History general Narrative - Reported Type Medical History GERD Medical History esophageal spasm Surgical History appendectomy Surgical History C section Surgical History ablasion-righ and left knee Hospitalization History see above [facility] [facility] Other Instructions Note Date & Type Note [...] and content) DATE CREATED AUTHOR 09/11/2020 [facility] DATE CREATED AUTHOR AUTHOR'S ORGANIZ ATION 03/19/2023 [facility] DATE CREATED AUTHOR AUTHOR'S ORGANIZ ATION 06/26/2023 [facility] REASON FOR VISIT (unrecogniz ed section and content) Reason Onset Date Comments Med Refill 06/06/2023 Care Teams (unrecognized sec tion and content) Team Status: Active Member Role Status Dates Lalita Westbrook DO Primary Care Provider Active Team Status: Inactive Member Role Status Dates Stephen Wilkins MD Attending Provider Active Lalita Westbrook DO Primary Care Provider Active Architectural Drafter Relationship Specialty Start Date End Date Lalita Westbrook DO [address] [place] [address] PCP - General Family Medicine 11/26/19 FOR [...] BE BASED ON THE PRIMARY CLINICAL RECORDS. [facility] [employer] [facility]. provides no warranty or guarantee of the accuracy or completeness of information in this document.
== END 2023-10-23 09:54 | disposition home or self-care (01) ==
LOC: VC 09:55
PROVIDERS: PCP Radiology Diagnostic Radiology; Visit Provider Radiology Diagnostic Radiology
DX: I80.01 Phlebitis and thrombophlebitis of superficial vessels of right lower extremity (principal)
CPT/HCPCS: 93971; G0463